=== PATIENT | male | born 1985 | race Caucasian/White ===

== ENCOUNTER 2017-12-18 09:16 | Emergency (ER) | payer SELFPAY ==
[2017-12-18 10:19] LABS: Absolute Lymphocytes (CBC) 3.2 K/uL (0.7-4.9); Absolute Monocytes 0.8 K/uL (0.1-1.3); Absolute Neutrophil 6.4 K/uL (1.8-8.0); Basophils % 0.5 % (0-1.3); Eosinophils % 1.8 % (0-4.4); Hematocrit 41.7 % (39.6-49.0); Lymphocytes % 29.8 % (15.3-44.8); MCH 30.1 pg (27.0-35.0); MCV 88.3 fL (80-100); MPV 8.1 fL (7.6-11.3); Monocytes % 7.6 % (3.3-12.3); RBC Red Blood Cell Count 4.72 M/uL (4.33-5.43)
[2017-12-18] MEDS ORDERED: NA CHLORIDE 0.9% 1,000 ML ONE (10:20)
[2017-12-18 10:32] LABS: Protime INR 0.96
--- NOTE | 2017-12-18 10:44 | RAD REPORT ---
EXAM DESCRIPTION: RAD - Chest Single View - 12/18/2017 10:18 am CLINICAL HISTORY: Dizziness, weakness, shortness of breath COMPARISON: None. TECHNIQUE: AP portable chest image was obtained 1014 hours . FINDINGS: No peripheral mass or consolidation. Interstitial markings are not outside of normal limit s for portable technique and body habitus. Heart and vasculature are normal. No measurable pleural ef fusion and no pneumothorax. No gross bony abnormality seen. No acute aortic findings suspected. IMPRESSION: No acute cardiopulmonary process.
--- NOTE | 2017-12-18 10:46 | RAD REPORT ---
EXAM DESCRIPTION: CT - Head Brain Wo Cont - 12/18/2017 10:20 am CLINICAL HISTORY: Headache, dizziness, weakness COMPARISON: None. TECHNIQUE: Axial 5 mm thick images of the head were obtained without IV contrast. All CT scans are performed using dose optimization technique as appropriate and may include automated exposure control or mA/KV adjustment according to patient size. FINDINGS: No intracranial hemorrhage, mass, edema or shift of mid-line structures. No acute infarcti on changes seen. No abnormal extra-axial fluid collections. Ventricles are normal. There is a benign 12 millimeter calcification in the right lateral scalp. Mastoid air cells are clear. There is a large polyp or retention cyst in the right maxillary sinus. Patchy mucosal thickening seen in the ethmoid air cells. No globe or orbital content abnormality. No acute bony findings. IMPRESSION: No edema, hemorrhage or acute intracranial finding. Nonacute findings detailed in the dora dy of the report.
[2017-12-18 10:55] LABS: Bicarbonate 25 mEq/L (21-31); CKMB Creatine Kinase MB 6.9 ng/ml (0.3-4.0); Glucose Level 98 mg/dL (65-120); Potassium 4.1 mEq/L (3.6-5.0); Sodium Level 138 mEq/L (135-145)
[2017-12-18 11:01] LABS: ALT/SGPT 37 IU/L (10-60); AST/SGOT 26 IU/L (10-42); Albumin 4.2 g/dL (3.2-5.5); Alkaline Phosphatase 78 IU/L (42-121); BUN Blood Urea Nitrogen 14 mg/dL (6-20); Bilirubin Direct 0.1 mg/dL (0-0.2); Bilirubin Total 0.5 mg/dL (0.3-1.2); Creatine Phosphokinase 389 IU/L (22-269); Protein, Total 7.1 g/dL (6.0-8.3)
[2017-12-18 11:10] LABS: Urine Blood NEGATIVE (NEG); Urine Glucose NEGATIVE (NEG); Urine Protein NEGATIVE (NEG); Urine Specific Gravity 1.025 (1.005-1.030)
[2017-12-18 11:19] LABS: Barbiturates NEGATIVE; Benzodiazepines NEGATIVE; Cocaine NEGATIVE; METHAMPHETAM NEGATIVE; Opiates NEGATIVE; Phencyclidine NEGATIVE; THC Cannibis NEGATIVE
--- NOTE | 2017-12-18 11:32 | EDPHYS ---
Physician Documentation [facility] Name: Kenny Fallon Age: 32 yrs Sex: Male : 1985 Arrival Date: 12/18/2017 Time: 09:18 Bed 2 Private MD: ED Physician Joe mC HPI: 12/18 09:30 This 32 yrs old Male presents to ER via EMS with complaints of Blood Pressure cp Problem. 09:30 The patient has elevated blood pressure and discovered this at work. cp 09:30 Onset: The symptoms/episode began/occurred this morning. Associated signs and symptoms: cp Pertinent positives: dizziness, headache, Pertinent negatives: chest pain, vomiting, weakness. Severity of symptoms: in the emergency department the blood pressure is improved, 148 mm Hg. patient reports history of HTN but stopping medications w/o follow-up with primary physician. Historical: - Allergies: 09:26 No Known Allergies; hb - Home Meds: 09:26 atorvastatin oral oral [Active]; hb - PMHx: 09:26 Hypertension; Hyperlipidemia; hb - PSHx: 09:26 Cholecystectomy; Tonsillectomy; hb - Immunization history:: Adult Immunizations up to date. - Social history:: Smoking status: Patient uses tobacco products, smokes one pack cigarettes per day. ROS: 09:34 Constitutional: Negative for body aches, chills, fever, poor PO intake. cp 09:34 Eyes: Negative for injury, pain, redness, and discharge. cp 09:34 ENT: Negative for drainage from ear(s), ear pain, sore throat, difficulty swallowing, difficulty handling secretions. 09:34 Neck: Negative for pain with movement, pain at rest, stiffness, tenderness. 09:34 Cardiovascular: Negative for chest pain, edema, palpitations. 09:34 Respiratory: Negative for cough, shortness of breath, wheezing. 09:34 Abdomen/GI: Negative for abdominal pain, nausea, vomiting, and diarrhea, black/tarry stool, rectal bleeding. 09:34 Skin: Negative for cellulitis, rash. 09:34 Neuro: Positive for dizziness, headache, Negative for altered mental status, seizure activity, syncope, near syncope, weakness. 09:34 All other systems are negative. Exam: 09:35 ECG was reviewed by the Attending Physician. cp 09:40 Constitutional: The patient appears in no acute distress, alert, awake, cp non-diaphoretic, non-toxic, well developed, well nourished, obese. 09:40 Head/Face: Normocephalic, atraumatic. Eyes: Pupils equal round and reactive to light, cp extra-ocular motions intact. Lids and lashes normal. Conjunctiva and sclera are non-icteric and not injected. Cornea within normal limits. Periorbital areas with no swelling, redness, or edema. ENT: Nares patent. No nasal discharge, no septal abnormalities noted. Tympanic membranes are normal and external auditory canals are clear. Oropharynx with no redness, swelling, or masses, exudates, or evidence of obstruction, uvula midline. Mucous membranes moist. Neck: Trachea midline, no thyromegaly or masses palpated, and no cervical lymphadenopathy. Supple, full range of motion without nuchal rigidity, or vertebral point tenderness. No Meningismus. Chest/axilla: Normal chest wall appearance and motion. Nontender with no deformity. No lesions are appreciated. 09:40 Cardiovascular: Rate: normal, Rhythm: regular, Pulses: Pulses are 2+ in right radial artery and left radial artery. Heart sounds: murmur, not appreciated, Edema: is not appreciated, JVD: is not appreciated. 09:40 Respiratory: the patient does not display signs of respiratory distress, Respirations: normal, no use of accessory muscles, no retractions, no splinting, no tachypnea, labored breathing, is not present, Breath sounds: are clear throughout, no decreased breath sounds, no stridor, no wheezing. 09:40 Abdomen/GI: Inspection: obese Bowel sounds: active, all quadrants, Palpation: abdomen is soft and non-tender, in all quadrants, voluntary guarding, is not appreciated, involuntary guarding, is not appreciated. 09:40 Back: pain, is absent, ROM is normal. 09:40 Skin: cellulitis, is not appreciated, no rash present. 09:40 Neuro: Orientation: to person, place \T\ time. Mentation: is normal, Cerebellar function: is grossly normal, Motor: moves all fours, strength is normal, Sensation: is normal. Vital Signs: 09:21 BP 148 / 73; Pulse 95; Resp 18; Temp 98.2; Pulse Ox 97% on R/A; Pain 0/10; hb 09:30 BP 114 / 48 Supine; Pulse 92; hb 09:35 BP 126 / 68 Sitting; Pulse 98; hb 09:43 BP 137 / 75 Standing; Pulse 102; hb 10:10 BP 101 / 70; Pulse 97; Resp 18; Pulse Ox 97% on R/A; hb 11:29 BP 122 / 72; Pulse 88; Resp 17; Pulse Ox 100% on R/A; Pain 0/10; hb MDM: 09:21 Patient medically screened. cp 10:00 Differential diagnosis: hypertensive crisis, Malignant HTN, CVA, intracerebral cp hemorrhage. 11:25 Data reviewed: vital signs, nurses notes, lab test result(s), EKG, radiologic studies, cp CT scan, plain films. 11:25 Counseling: I had a detailed discussion with the patient and/or guardian regarding: the cp historical points, exam findings, and any diagnostic results supporting the discharge/admit diagnosis, the presence of at least one elevated blood pressure reading (>120/80) during this emergency department visit, lab results, radiology results, the need for outpatient follow up, a family practitioner, to return to the emergency department if symptoms worsen or persist or if there are any questions or concerns that arise at home. 11:25 Response to treatment: the patient's symptoms have markedly improved after treatment, cp and as a result, I will discharge patient. 12/18 09:54 Order name: Basic Metabolic Panel; Complete Time: 11:21 cp 12/18 11:22 Interpretation: Reviewed. cp 12/18 09:54 Order name: BNP; Complete Time: 11:21 cp 12/18 09:54 Order name: CBC with Diff; Complete Time: 11:00 cp 12/18 11:00 Interpretation: Reviewed. cp 12/18 09:54 Order name: Ckmb; Complete Time: 11:21 cp 12/18 11:21 Interpretation: CKMB 6.9; Reviewed. cp 12/18 09:54 Order name: CPK; Complete Time: 11:21 cp 12/18 11:22 Interpretation: CPK 389; Reviewed. cp 12/18 09:54 Order name: LFT's; Complete Time: 11:21 cp 12/18 09:54 Order name: Magnesium; Complete Time: 11:21 cp 12/18 09:54 Order name: PT-INR; Complete Time: 11:00 cp 12/18 09:54 Order name: Ptt, Activated; Complete Time: 11:00 cp 12/18 09:54 Order name: Troponin (emerg Dept Use Only); Complete Time: 11:00 cp / 09:54 Order name: XRAY Chest (1 view); Complete Time: 11:00 cp 12/18 09:54 Order name: CT Head Brain wo Cont; Complete Time: 11:00 cp 12/18 09:54 Order name: UDS; Complete Time: 11:21 cp 12/18 10:58 Order name: Urine Dipstick--Ancillary (enter results); Complete Time: 11:21 bd 12/18 09:27 Order name: Orthostatics; Complete Time: 09:46 cp 12/18 09:27 Order name: EKG; Complete Time: 09:27 cp 12/18 09:27 Order name: EKG - Nurse/Tech; Complete Time: 09:39 cp 12/18 09:54 Order name: Cardiac monitoring; Complete Time: 09:59 cp 12/18 09:54 Order name: IV Saline Lock; Complete Time: 09:59 cp 12/18 09:54 Order name: Labs collected and sent; Complete Time: 10:10 cp 12/18 09:54 Order name: O2 Per Protocol; Complete Time: 09:59 cp 12/18 09:54 Order name: O2 Sat Monitoring; Complete Time: 09:59 cp EC:35 Rate is 88 beats/min. Rhythm is regular. WA interval is normal. QRS interval is normal. cp QT interval is normal. No ST changes noted. Interpreted by me. Reviewed by me. Administered Medications: 10:10 Drug: NS 0.9% 1000 ml Route: IV; Rate: 1 bolus; Site: left antecubital; hb Disposition: 13:24 Co-signature as Attending Physician, Joe Cm MD. Disposition: 12/18/17 11:31 Discharged to Home. Impression: Elevated blood-pressure reading, without diagnosis of hypertension. - Condition is Stable. - Discharge Instructions: How to Take Your Blood Pressure, [id number], DASH Eating Plan. - Work release form, Medication Reconciliation Form, Thank You Letter, Antibiotic Education, Prescription Opioid Use form. - Follow up: Private Physician; When: 1 - 2 days; Reason: Recheck today's complaints. - Problem is new. - Symptoms have improved. Signatures: Dispatcher [employer] Janna Ordoñez RN RN ss Papa Linares PA PA cp Baxter, Heather, RN RN hb Starr, Gregory, MD MD gs Corrections: (The following items were deleted from the chart) 11:50 09:54 Urine Dipstick-Ancillary ordered. terrance
--- NOTE | 2017-12-18 11:32 | ER ---
Nurse's Notes [facility] Name: Kenny Fallon Age: 32 yrs Sex: Male : 1985 Arrival Date: 12/18/2017 Time: 09:18 Bed 2 Private MD: Diagnosis: Elevated blood-pressure reading, without diagnosis of hypertension Presentation: 12/18 09:19 Presenting complaint: EMS states: Jay Em lightheaded at work, went to medic, BP 198/48. hb Hx hypertension, has not taken medication for > 2 months. Denies SOB/N/pain. Transition of care: patient was not received from another setting of care. Onset of symptoms was December 18, 2017. Care prior to arrival: None. 09:19 Method Of Arrival: EMS: [facility] 09:19 Acuity: TRINI 3 hb Triage Assessment: :26 General: Appears in no apparent distress. Behavior is calm, cooperative. Pain: Denies hb pain. Neuro: Level of Consciousness is awake, alert, obeys commands, Oriented to person, place, time, situation, Pupils are PERRLA. Cardiovascular: Capillary refill < 3 seconds Patient's skin is warm and dry. Respiratory: Airway is patent Respiratory effort is even, unlabored, Respiratory pattern is regular, symmetrical, Breath sounds are clear bilaterally. Historical: - Allergies: : No Known Allergies; hb - Home Meds: : atorvastatin oral oral [Active]; hb - PMHx: 09:26 Hypertension; Hyperlipidemia; hb - PSHx: 09:26 Cholecystectomy; Tonsillectomy; hb - Immunization history:: Adult Immunizations up to date. - Social history:: Smoking status: Patient uses tobacco products, smokes one pack cigarettes per day. Screenin: Abuse screen: Denies threats or abuse. Denies injuries from another. Nutritional hb screening: No deficits noted. Tuberculosis screening: No symptoms or risk factors identified. Fall Risk None identified. Assessment: :27 General: see triage assessment. hb 10:25 Reassessment: Patient appears in no apparent distress at this time. No changes from hb previously documented assessment. Patient and/or family updated on plan of care and expected duration. Pain level reassessed. Patient is alert, oriented x 3, equal unlabored respirations, skin warm/dry/pink. Vital Signs: 09:21 BP 148 / 73; Pulse 95; Resp 18; Temp 98.2; Pulse Ox 97% on R/A; Pain 0/10; hb 09:30 BP 114 / 48 Supine; Pulse 92; hb 09:35 BP 126 / 68 Sitting; Pulse 98; hb 09:43 BP 137 / 75 Standing; Pulse 102; hb 10:10 BP 101 / 70; Pulse 97; Resp 18; Pulse Ox 97% on R/A; hb 11:29 BP 122 / 72; Pulse 88; Resp 17; Pulse Ox 100% on R/A; Pain 0/10; hb ED Course: 09:18 Patient arrived in ED. hb 09:21 Papa Linares PA is PHCP. cp 09:21 Joe Cm MD is Attending Physician. cp 09:21 Triage completed. hb 09:26 Arm band placed on right wrist. hb 09:27 Elisa Max, RN is Primary Nurse. hb 09:27 Patient has correct armband on for positive identification. Placed in gown. Bed in low hb position. Call light in reach. Side rails up X 1. playground monitor on. Pulse ox on. NIBP on. 09:47 EKG done, by drinking water technician. reviewed by Papa HOLGUIN. at1 10:18 X-ray completed. Portable x-ray completed in exam room. jb2 10:19 XRAY Chest (1 view) In Process Unspecified. EDMS 10:19 CT Head Brain wo Cont In Process Unspecified. EDMS 10:19 CT completed. Patient tolerated procedure well. Patient moved to CT via stretcher. sj Patient moved back from CT. 10:22 Inserted saline lock: 20 gauge in left antecubital area, using aseptic technique. Blood ag collected. 11:50 No provider procedures requiring assistance completed. IV discontinued, intact, ss bleeding controlled, No redness/swelling at site. Pressure dressing applied. Administered Medications: 10:10 Drug: NS 0.9% 1000 ml Route: IV; Rate: 1 bolus; Site: left antecubital; hb Outcome: 11:31 Discharge ordered by MD. cp 11:50 Discharged to home ambulatory, with family. ss 11:50 Condition: good 11:50 Discharge instructions given to patient, family, Instructed on discharge instructions, follow up and referral plans. Demonstrated understanding of instructions, follow-up care. 11:50 Patient left the ED. ss Signatures: Dispatcher [employer] EDMS Efren Galicia jb2 Anna Leone Shelby, IAN RN ss Eryn pearl, biochemical development engineer EKG Tat1 Dolores Faith Corey, PA PA cp Baxter, Heather, IAN RN hb Corrections: (The following items were deleted from the chart) 09:22 09:19 Presenting complaint: EMS states: Jay Em lightheaded at work, went to [facility], BP hb 198/48. Hx hypertension, has not taken medication for > 2 months hb
--- NOTE | 2017-12-19 07:39 | EKG ---
Test Date: 2017-12-18 Test Time: 09:30:01 Civil Technician: ADOLFO MEASUREMENT RESULTS: Intervals: Rate: 88 MA: 168 QRSD: 80 QT: 350 QTc: 423 [place]: P: 47 MA: 168 QRS: 10 T: 56 INTERPRETIVE STATEMENTS: Normal sinus rhythm Normal ECG No previous ECG available for comparison Electronically Signed On 12-19-17 07:35:12 CDT by Judd Bustillos
== END 2017-12-18 11:50 | disposition home or self-care (01) ==
LOC: ER 09:16
DX: R03.0 Elevated blood-pressure reading, without diagnosis of hypertension (principal); E78.5 Hyperlipidemia, unspecified; F17.210 Nicotine dependence, cigarettes, uncomplicated
CPT/HCPCS: 36415; 70450; 71045; 80048; 80076; 80307; 81003; 82550; 82553; 83735; 83880; 84484; 85025; 85610; 85730; 93005; 99285; J7030

== ENCOUNTER 2022-04-14 19:36 | Emergency (ER) | payer SELFPAY ==
--- NOTE | 2022-04-14 21:09 | RAD REPORT ---
EXAM DESCRIPTION: US - Extremity Nonvascular Limited - 04/14/2022 9:01 pm CLINICAL HISTORY: evaluate mass near scapula COMPARISON: No comparisons TECHNIQUE: Real-time sonographic evaluation of the area of interest was performed. FINDINGS: Nonspecific 2 cm hyperechoic lesion is present in the region of interest. This could poten tially be a lipoma but definitive diagnosis not possible by ultrasound.
--- NOTE | 2022-04-14 21:29 | RAD REPORT ---
EXAM DESCRIPTION: CT - Spine Lumbar Wo Con - 04/14/2022 9:16 pm CLINICAL HISTORY: Radiculopathy. Back pain COMPARISON: No comparisons TECHNIQUE: Axial noncontrast CT imaging of the lumbar spine was performed with coronal and sagittal re-formatted images. All CT scans are performed using dose optimization technique as appropriate and may include automated exposure control or mA/KV adjustment according to patient size. FINDINGS: No acute lumbar spine fracture seen. No aggressive marrow pattern or malalignment. Paraspinal tissues are normal in thickness. No paraspinal abscess or hematoma seen. Intervertebral disc disease assessment is inherently limited by CT. Mild posterior disc bulges are pr esent lower lumbar spine. IMPRESSION: No acute finding is evident. Mild lower lumbar spondylosis is present. Nonemergent followup MR imaging of lumbar spine would be suggested for assessment of disc disease.
[2022-04-14] MEDS ORDERED: FENTANYL CITR 100 MCG/2 ML ONE (21:48)
[2022-04-14] MEDS ORDERED: KETOROLAC 30 MG/ML INJ ONE (21:48)
[2022-04-14] MEDS ORDERED: LIDOCAINE 4% PATCH ONE (21:49)
[2022-04-14] MEDS ORDERED: ONDANSETRON 4 MG/2 ML VIAL ONE (21:49)
[2022-04-14] MEDS ORDERED: NA CHLORIDE 0.9% 1,000 ML ONE (21:49)
--- NOTE | 2022-04-14 23:10 | ER ---
Nurse's Notes [facility] Name: Kenny Fallon Age: 36 yrs Sex: Male : 1985 Arrival Date: 04/14/2022 Time: 19:38 Bed 14 Private MD: Diagnosis: Low back pain Presentation: 04/14 20:12 Chief complaint: Patient states: "I feel like there is a hot poker stabbing in my back. tw5 It fucking hurts so bad.". Coronavirus screen: Vaccine status: Patient reports being unvaccinated. Ebola Screen: Patient negative for fever greater than or equal to 101.5 degrees Fahrenheit, and additional compatible Ebola Virus Disease symptoms Patient denies exposure to infectious person. Patient denies travel to an Ebola-affected area in the 21 days before illness onset. Initial Sepsis Screen: Does the patient meet any 2 criteria? HR > 90 bpm. Does the patient have a suspected source of infection? No. Patient's initial sepsis screen is negative. Risk Assessment: Do you want to hurt yourself or someone else? Patient reports no desire to harm self or others. Onset of symptoms was April 14, 2022 at 12:00. 20:12 Method Of Arrival: Wheelchair tw5 20:12 Acuity: TRINI 3 tw5 Triage Assessment: 20:16 General: Appears uncomfortable, obese, Behavior is agitated. Pain: Complains of pain in tw5 right subscapular area and low back area Pain currently is 10 out of 10 on a pain scale. Musculoskeletal: Range of motion: intact in all extremities. Historical: - Allergies: 20:16 No Known Allergies; tw5 - Home Meds: 21:00 atorvastatin Oral [Active]; vc1 - PMHx: 20:16 Hyperlipidemia; Hypertension; tw5 - Immunization history:: Flu vaccine is not up to date. Patient has never been vaccinated. - Social history:: Smoking status: Smoking status: Patient reports the use of cigarette tobacco products, smokes one pack cigarettes per day. Screenin:18 Abuse screen: Denies threats or abuse. Denies injuries from another. Nutritional tw5 screening: No deficits noted. Tuberculosis screening: No symptoms or risk factors identified. Fall Risk Fall in past 12 months (25 points). Assessment: 21:00 Reassessment: Patient and/or family updated on plan of care and expected duration. Pain vc1 level reassessed. Patient is alert, oriented x 3, equal unlabored respirations, skin warm/dry/pink. 22:00 Reassessment: Patient and/or family updated on plan of care and expected duration. Pain vc1 level reassessed. Patient is alert, oriented x 3, equal unlabored respirations, skin warm/dry/pink. 23:15 Reassessment: Patient and/or family updated on plan of care and expected duration. Pain vc1 level reassessed. Patient is alert, oriented x 3, equal unlabored respirations, skin warm/dry/pink. Patient states symptoms have improved. Vital Signs: 20:12 BP 142 / 85; Pulse 109; Resp 24; Temp 98.4; Pulse Ox 94% on R/A; Weight 186.88 kg; tw5 Height 6 ft. 0 in. (182.88 cm); Pain 10/10; 21:40 BP 148 / 76; Pulse 105; Resp 20; Temp 98.0(O); Pulse Ox 95% on R/A; mh5 22:55 BP 148 / 67; Pulse 84; Resp 20; Pulse Ox 95% on R/A; mh5 23:30 BP 145 / 68; Pulse 88; Resp 18; Pulse Ox 96% ; vc1 20:12 Body Mass Index 55.88 (186.88 kg, 182.88 cm) tw5 ED Course: 19:38 Patient arrived in ED. ja2 19:39 Nita Rocha [facility]-C [facility]. kb 19:39 Bhavin Adair MD is Attending Physician. kb 20:16 Triage completed. tw5 20:16 Arm band placed on right wrist. tw5 20:18 Patient has correct armband on for positive identification. tw5 20:39 Missed attempt(s): 20 gauge in right antecubital area. mh5 21:03 US Extrmty Nonvasular Limited In Process Unspecified. EDMS 21:15 Inserted saline lock: 22 gauge in right antecubital area, using aseptic technique. vc1 21:18 CT Lumbar Spine Wo Con In Process Unspecified. EDMS 23:30 No provider procedures requiring assistance completed. IV discontinued, intact, vc1 bleeding controlled, No redness/swelling at site. Pressure dressing applied. Administered Medications: 21:00 Drug: fentaNYL (PF) 50 mcg Route: IVP; Site: right antecubital; vc1 22:00 Follow up: Response: No adverse reaction; Marked relief of symptoms vc1 21:00 Drug: Zofran (Ondansetron) 4 mg Route: IVP; Site: right antecubital; vc1 22:00 Follow up: Response: No adverse reaction; Nausea is decreased vc1 22:00 Drug: NS 0.9% 1000 ml Route: IV; Rate: 1000 ml; Site: right antecubital; vc1 04/15 05:04 Follow up: IV Status: Completed infusion; IV Intake: 1000ml vc1 04/14 22:00 Drug: Lidoderm Patch 5 % (700 mg/patch) 1 patches Route: Topical; Site: affected area; vc1 22:10 Drug: Ketorolac 30 mg Route: IVP; Site: right antecubital; vc1 04/15 05:04 Follow up: Response: No adverse reaction; Marked relief of symptoms vc1 Medication: 04/14 23:30 VIS not applicable for this client. vc1 Intake: 04/15 05:04 IV: 1000ml; Total: 1000ml. vc1 Outcome: 04/14 23:09 Discharge ordered by . lesli 23:30 Discharged to home via wheelchair. vc1 23:30 Condition: good 23:30 Discharge instructions given to patient, Instructed on discharge instructions, follow up and referral plans. medication usage, Demonstrated understanding of instructions, follow-up care, medications, Prescriptions given X 2. 23:44 Patient left the ED. vc1 Signatures: Dispatcher [employer] EDNita Johnson, AYESHA-C INDUSTRIAL TWISTING MACHINE OPERATOR-[place] 5 Katiuska Kulkarni Tiffany tw5 Hallie Cedeño RN RN vc1 Corrections: (The following items were deleted from the chart) 20:16 20:12 Acuity: TRINI 4 tw5 tw5
--- NOTE | 2022-04-14 23:10 | EDPHYS ---
Physician Documentation [facility] [place] Name: Kenny Fallon Age: 36 yrs Sex: Male : 1985 Arrival Date: 04/14/2022 Time: 19:38 Bed 14 Private MD: ED Physician Bhavin Adair HPI: 04/14 23:29 This 36 yrs old Male presents to ER via Wheelchair with complaints of Back Pain. kb 23:29 The patient presents with pain that is chronic. The symptoms are located in the low kb back. Onset: The symptoms/episode began/occurred and became worse today. The pain does not radiate. Associated signs and symptoms: The patient has no apparent associated signs or symptoms. The problem was sustained from a chronic condition. Modifying factors: The patient symptoms are alleviated by nothing, the patient symptoms are aggravated by any movement. Severity of symptoms: At their worst the symptoms were moderate, in the emergency department the symptoms are unchanged. The patient has experienced similar episodes in the past, chronically. The patient has not recently seen a physician. Patient reports chronic low back pain that started years ago with intermittent exacerbations. States this pain exacerbation started yesterday and has been worse today.. Historical: - Allergies: 20:16 No Known Allergies; tw5 - Home Meds: 21:00 atorvastatin Oral [Active]; vc1 - PMHx: 20:16 Hyperlipidemia; Hypertension; tw5 - Immunization history:: Flu vaccine is not up to date. Patient has never been vaccinated. - Social history:: Smoking status: Smoking status: Patient reports the use of cigarette tobacco products, smokes one pack cigarettes per day. ROS: 23:29 Constitutional: Negative for fever, chills, and weight loss. kb 23:29 Back: Positive for pain at rest, pain with movement, of the low back area. 23:29 All other systems are negative. Exam: 23:29 Constitutional: This is a well developed, well nourished patient who is awake, alert, kb and in no acute distress. Head/Face: Normocephalic, atraumatic. ENT: Moist Mucous membranes Respiratory: Respirations even and unlabored. No increased work of breathing. Talking in full sentences Skin: Warm, dry with normal turgor. Normal color. MS/ Extremity: Pulses equal, no cyanosis. Neurovascular intact. Full, normal range of motion. Neuro: Awake and alert, GCS 15, oriented to person, place, time, and situation. Moves all extremities. Normal gait. Psych: Awake, alert, with orientation to person, place and time. Behavior, mood, and affect are within normal limits. 23:29 Back: pain, that is moderate, of the low back area, ROM is painful, with all movement, normal spinal alignment noted. Vital Signs: 20:12 BP 142 / 85; Pulse 109; Resp 24; Temp 98.4; Pulse Ox 94% on R/A; Weight 186.88 kg; tw5 Height 6 ft. 0 in. (182.88 cm); Pain 10/10; 21:40 BP 148 / 76; Pulse 105; Resp 20; Temp 98.0(O); Pulse Ox 95% on R/A; mh5 22:55 BP 148 / 67; Pulse 84; Resp 20; Pulse Ox 95% on R/A; mh5 23:30 BP 145 / 68; Pulse 88; Resp 18; Pulse Ox 96% ; vc1 20:12 Body Mass Index 55.88 (186.88 kg, 182.88 cm) tw5 MDM: 20:29 Patient medically screened. kb 21:40 Data reviewed: vital signs, nurses notes. Data interpreted: Pulse oximetry: on room air kb is 94 %. Interpretation: normal. Counseling: I had a detailed discussion with the patient and/or guardian regarding: the historical points, exam findings, and any diagnostic results supporting the discharge/admit diagnosis, radiology results, the need for outpatient follow up, a family practitioner, to return to the emergency department if symptoms worsen or persist or if there are any questions or concerns that arise at home. 23:28 ED course: Pain has decreased. Pt educated on results and need for follow up due to kb chronic pain. Verbal understanding received. . 04/14 20:20 Order name: CT Lumbar Spine Wo Con; Complete Time: 21:36 tw5 04/14 20:20 Order name: US Extrmty Nonvasular Limited; Complete Time: 21:16 tw5 04/14 20:20 Order name: IV Saline Lock; Complete Time: 05:06 tw5 Administered Medications: 21:00 Drug: fentaNYL (PF) 50 mcg Route: IVP; Site: right antecubital; vc1 22:00 Follow up: Response: No adverse reaction; Marked relief of symptoms vc1 21:00 Drug: Zofran (Ondansetron) 4 mg Route: IVP; Site: right antecubital; vc1 22:00 Follow up: Response: No adverse reaction; Nausea is decreased vc1 22:00 Drug: NS 0.9% 1000 ml Route: IV; Rate: 1000 ml; Site: right antecubital; vc1 04/15 05:04 Follow up: IV Status: Completed infusion; IV Intake: 1000ml vc1 04/14 22:00 Drug: Lidoderm Patch 5 % (700 mg/patch) 1 patches Route: Topical; Site: affected area; vc1 22:10 Drug: Ketorolac 30 mg Route: IVP; Site: right antecubital; vc1 04/15 05:04 Follow up: Response: No adverse reaction; Marked relief of symptoms vc1 Disposition: 05:57 Co-signature as Attending Physician, Bhavin Adair MD. mh7 Disposition Summary: 04/14/22 23:09 Discharge Ordered Location: Home kb Condition: Stable kb Diagnosis - Low back pain kb Followup: kb - With: Emergency Department - When: As needed - Reason: Worsening of condition Followup: kb - With: Private Physician - When: 2 - 3 days - Reason: Recheck today's complaints, Continuance of care, Re-evaluation by your physician Discharge Instructions: - Discharge Summary Sheet kb - Musculoskeletal Pain kb - Chronic Back Pain, Gdxq-ms-Cuby kb Forms: - Medication Reconciliation Form kb - Thank You Letter kb - Antibiotic Education kb - Prescription Opioid Use kb Prescriptions: - Cyclobenzaprine 10 mg Oral Tablet - take 1 tablet by ORAL route every 8 hours As needed; 15 tablet; Refills: 0, kb Product Selection Permitted - Diclofenac Sodium 75 mg Oral tablet,delayed release (DR/EC) - take 1 tablet by ORAL route 2 times per day As needed; 30 tablet; Refills: 0, kb Product Selection Permitted Signatures: Dispatcher [employer] Nita Iniguez, NELIA HODGE-Bhavin Barrera MD MD 7 Shila Whitehead 5 Hallie Cedeño RN RN vc1
[2022-04-15 02:01] VITALS: TEMP 98; O2SAT 95
[2022-04-15 02:03] VITALS: BP 148/67
== END 2022-04-14 23:44 | disposition home or self-care (01) ==
LOC: ER 19:36
DX: M54.50 Low back pain, unspecified (principal); I10 Essential (primary) hypertension; F17.210 Nicotine dependence, cigarettes, uncomplicated
CPT/HCPCS: 72131; 76882; 96361; 96374; 96375; 99284; J2001; J2405; J3010; J7030

== ENCOUNTER 2022-05-22 10:07 | Emergency (ER) | payer SELFPAY ==
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
[2022-05-22] MEDS ORDERED: CYCLOBENZAPRINE 10 MG TAB ONE (10:41)
[2022-05-22] MEDS ORDERED: HYDROCODONE/APAP 7.5/325 MG TAB ONE (10:42)
[2022-05-22] MEDS ORDERED: KETOROLAC 30 MG/ML INJ ONE (10:42)
--- NOTE | 2022-05-22 10:58 | ER ---
Nurse's Notes [facility] Name: Kenny Fallon Age: 36 yrs Sex: Male : 1985 Arrival Date: 05/22/2022 Time: 10:10 Bed 11 Private MD: Diagnosis: Sciatica;Sacral Pain Presentation: 05/22 10:16 Chief complaint: Patient states: Lower back pain (chronic). Has been prescribed pain kl meds in the past but either they havent worked or he cant function taking them. Coronavirus screen: Client denies travel out of the [place] in the last 14 days. At this time, the client does not indicate any symptoms associated with coronavirus-19. Ebola Screen: No symptoms or risks identified at this time. Initial Sepsis Screen: Does the patient meet any 2 criteria? No. Patient's initial sepsis screen is negative. Does the patient have a suspected source of infection? No. Patient's initial sepsis screen is negative. Risk Assessment: Do you want to hurt yourself or someone else? Patient reports no desire to harm self or others. Onset of symptoms was May 18, 2022. 10:16 Method Of Arrival: Wheelchair 10:16 Acuity: TRINI 3 kl 10:21 Note ONSHORE DIVER in triage to see patient. kl Triage Assessment: 10:20 General: Appears uncomfortable, obese, Behavior is calm, cooperative, appropriate for kl age. Pain: Complains of pain in left low back and right low back. Musculoskeletal: lower back pain. Historical: - Allergies: 11:14 No Known Allergies; jl7 - Home Meds: 10:20 atorvastatin Oral [Active]; kl - PMHx: 10:20 Hyperlipidemia; Hypertension; kl - Immunization history:: Client reports having NOT received the Covid vaccine. - Social history:: Smoking status: Patient reports the use of cigarette tobacco products, smokes one pack cigarettes per day. Screenin:53 Abuse screen: Denies threats or abuse. Nutritional screening: No deficits noted. bm7 Tuberculosis screening: No symptoms or risk factors identified. Fall Risk None identified. Assessment: 10:53 Reassessment: Patient and/or family updated on plan of care and expected duration. Pain bm7 level reassessed. Patient is alert, oriented x 3, equal unlabored respirations, skin warm/dry/pink. Vital Signs: 10:16 BP 149 / 89; Pulse 106; Resp 22; Temp 98.1; Pulse Ox 94% ; Weight 181.44 kg; Height 6 kl ft. 0 in. (182.88 cm); Pain 8/10; 11:14 BP 134 / 74; Pulse 99; Resp 20; Pulse Ox 90% ; jl7 10:16 Body Mass Index 54.25 (181.44 kg, 182.88 cm) ED Course: 10:10 Patient arrived in ED. rg4 10:11 Tana Hammonds FNP is PHCP. 7 10:11 Nathan Mcmahon MD is Attending Physician. 7 10:20 Triage completed. 10:20 Arm band placed on right wrist. Patient placed in an exam room, Patient notified of wait time. 10:53 No apparent distress. Resting quietly. Awaiting ED provider evaluation. bm7 10:53 Patient has correct armband on for positive identification. Client placed on continuous bm7 cardiac and pulse oximetry monitoring. NIBP monitoring applied. Warm blanket given. 10:53 No provider procedures requiring assistance completed. Patient maintains SpO2 bm7 saturation greater than 95% on room air. 11:14 Griffin Downing, RN is Primary Nurse. jl7 11:15 Patient did not have IV access during this emergency room visit. jl7 Administered Medications: 10:35 Drug: Ketorolac 60 mg Route: IM; Site: left gluteus; bm7 11:16 Follow up: Response: No adverse reaction jl7 10:35 Drug: Flexeril (cyclobenzaprine) 10 mg Route: PO; bm7 11:16 Follow up: Response: No adverse reaction jl7 10:35 Drug: Gilbert (HYDROcodone-acetaminophen) (7.5 mg-325 mg) 1 tabs Route: PO; bm7 11:15 Follow up: Response: No adverse reaction jl7 Medication: 10:53 VIS not applicable for this client. bm7 Outcome: 10:58 Discharge ordered by . jh7 11:15 Discharged to home via wheelchair. jl7 11:15 Condition: stable 11:15 Discharge instructions given to patient, Instructed on discharge instructions, follow up and referral plans. medication usage, Demonstrated understanding of instructions, follow-up care, medications, Prescriptions given X 3. 11:16 Patient left the ED. jl7 Signatures: Catina Vick, RN RN Lenora Davalos4 Griffin Downing RN RN jl7 Dipti Hall, RN RN bm7 Tana Hammonds, AYESHA HODGE 7
--- NOTE | 2022-05-22 10:58 | EDPHYS ---
Physician Documentation [facility] Name: Kenny Fallon Age: 36 yrs Sex: Male : 1985 Arrival Date: 05/22/2022 Time: 10:10 Bed 11 Private MD: ED Physician Nathan Mcmahon HPI: 05/22 10:22 This 36 yrs old Male presents to ER via Wheelchair with complaints of Back Pain. jh7 10:22 The patient presents with pain that is chronic, with no known mechanism of injury. The jh7 symptoms are located in the sacrum. Onset: The symptoms/episode began/occurred and became worse 3 day(s) ago. The pain radiates to the right leg and left leg. Patient reports chronic back pain from an injury occurring years ago. States that he does not have a PCP and is trying to get an appointment with a primary care doctor. States that he has to wait until his insurance kicks in. Denies any changes or new injuries.. Historical: - Allergies: 11:14 No Known Allergies; jl7 - Home Meds: 10:20 atorvastatin Oral [Active]; kl - PMHx: 10:20 Hyperlipidemia; Hypertension; kl - Immunization history:: Client reports having NOT received the Covid vaccine. - Social history:: Smoking status: Patient reports the use of cigarette tobacco products, smokes one pack cigarettes per day. ROS: 10:22 Constitutional: Negative for fever, chills, and weight loss, Cardiovascular: Negative jh7 for chest pain, palpitations, and edema, Respiratory: Negative for shortness of breath, cough, wheezing, and pleuritic chest pain, Abdomen/GI: Negative for abdominal pain, nausea, vomiting, diarrhea, and constipation, MS/Extremity: Negative for injury and deformity, Skin: Negative for injury, rash, and discoloration, Neuro: Negative for headache, weakness, numbness, tingling, and seizure. 10:22 Back: Positive for pain with movement, of the sacrum. 10:22 All other systems are negative. Exam: 10:22 Back: pain, that is moderate, of the sacrum. jh7 10:22 Back: muscle spasm, is appreciated in the sacrum, NVI, paraspinal sacral pain radiating jh7 down glutes and BLE. No swelling or TTP noted.. 10:22 Constitutional: This is a well developed, well nourished patient who is awake, alert, jh7 and in no acute distress. Neck: Trachea midline, no thyromegaly or masses palpated, and no cervical lymphadenopathy. Supple, full range of motion without nuchal rigidity, or vertebral point tenderness. No Meningismus. Cardiovascular: Regular rate and rhythm with a normal S1 and S2. No gallops, murmurs, or rubs. Normal PMI, no JVD. No pulse deficits. Respiratory: Lungs have equal breath sounds bilaterally, clear to auscultation and percussion. No rales, rhonchi or wheezes noted. No increased work of breathing, no retractions or nasal flaring. Skin: Warm, dry with normal turgor. Normal color with no rashes, no lesions, and no evidence of cellulitis. MS/ Extremity: Pulses equal, no cyanosis. Neurovascular intact. Full, normal range of motion. Neuro: Awake and alert, GCS 15, oriented to person, place, time, and situation. Motor strength 5/5 in all extremities. Sensory grossly intact. Normal gait. Vital Signs: 10:16 BP 149 / 89; Pulse 106; Resp 22; Temp 98.1; Pulse Ox 94% ; Weight 181.44 kg; Height 6 kl ft. 0 in. (182.88 cm); Pain 8/10; 11:14 BP 134 / 74; Pulse 99; Resp 20; Pulse Ox 90% ; jl7 10:16 Body Mass Index 54.25 (181.44 kg, 182.88 cm) MDM: 10:24 Patient medically screened. [facility] 11:00 Differential diagnosis: Chronic back pain, sciatica. Data reviewed: vital signs, nurses [facility] notes. Data interpreted: Pulse oximetry: is 95 %. Interpretation: normal. 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 Administered Medications: 10:35 Drug: Ketorolac 60 mg Route: IM; Site: left gluteus; 7 11:16 Follow up: Response: No adverse reaction jl7 10:35 Drug: Flexeril (cyclobenzaprine) 10 mg Route: PO; bm7 11:16 Follow up: Response: No adverse reaction 7 10:35 Drug: [place] (HYDROcodone-acetaminophen) (7.5 mg-325 mg) 1 tabs Route: PO; bm7 11:15 Follow up: Response: No adverse reaction 7 Disposition: 15:42 Co-signature as Attending Physician, Nathan Mcmahon MD I agree with the assessment and kdr plan of care. Disposition Summary: 05/22/22 10:58 Discharge Ordered Location: Home [facility] Problem: chronic [facility] Symptoms: are unchanged [facility] Condition: Stable [facility] Diagnosis - Sciatica [facility] - Sacral Pain [facility] Followup: [facility] - With: Private Physician - When: 2 - 3 days - Reason: Recheck today's complaints Discharge Instructions: - Discharge Summary Sheet [facility] - Chronic Back Pain [facility] - Sciatica [facility] - Back Exercises [facility] Forms: - Medication Reconciliation Form [facility] - Thank You Letter [facility] - Prescription Opioid Use [facility] Prescriptions: - Zanaflex 4 mg Oral Tablet - take 1 tablet by ORAL route every 8 hours As needed; 20 tablet; Refills: 0, [facility] Product Selection Permitted - Tramadol 50 mg Oral Tablet - take 1 tablet by ORAL route every 8 hours as needed; 12 tablet; Refills: 0, [facility] Product Selection Permitted - Medrol (Richi) 4 mg Oral Tablets, Dose Pack - take 1 tablet by ORAL route as directed - follow package instructions; 1 [facility] packet; Refills: 0, Product Selection Permitted Signatures: Catina Vick RN RN kl Rittger, Kevin, MD MD kdr Leal, Jahala, RN RN jl7 Dipti Hall RN RN bm7 Tana Hammonds FNP [place] [address]
[2022-05-22 11:46] VITALS: TEMP 98.1
[2022-05-22 11:48] VITALS: BP 134/74; O2SAT 90
== END 2022-05-22 11:16 | disposition home or self-care (01) ==
LOC: ER 10:07
DX: M54.30 Sciatica, unspecified side (principal); M53.3 Sacrococcygeal disorders, not elsewhere classified; I10 Essential (primary) hypertension; F17.210 Nicotine dependence, cigarettes, uncomplicated
CPT/HCPCS: 96372; 99284

== ENCOUNTER 2022-05-28 17:58 | Emergency (ER) | payer SELFPAY ==
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
[2022-05-28] MEDS ORDERED: CYCLOBENZAPRINE 10 MG TAB ONE (18:47)
[2022-05-28] MEDS ORDERED: KETOROLAC 30 MG/ML INJ ONE (18:48)
[2022-05-28] MEDS ORDERED: HYDROCODONE/APAP 7.5/325 MG TAB ONE (18:48)
--- NOTE | 2022-05-28 18:49 | EDPHYS ---
Physician Documentation [facility] Name: Kenny Fallon Age: 36 yrs Sex: Male : 1985 Arrival Date: 05/28/2022 Time: 18:01 Bed 16 Private MD: ED Physician Papa Leo HPI: 05/28 18:31 This 36 yrs old Male presents to ER via Wheelchair with complaints of Trouble jl9 Walking, Back Pain. Patient has a history of chronic back pain. Patient reports that he is unable to see a PCP due to finances and just needs pain managment. . 18:31 The patient presents to the emergency department with difficult walking, painful.. jl9 Onset: The symptoms/episode began/occurred 1 week(s) ago. Associated signs and symptoms: Pertinent negatives: paresthesias. Severity of symptoms: Pain is currently a 6 / 10. The patient has experienced similar episodes in the past. Historical: - Allergies: 18:10 No Known Allergies; jl7 - Home Meds: 18:10 None [Active]; jl7 - PMHx: 18:10 Hyperlipidemia; Hypertension; jl7 - Immunization history:: Adult Immunizations unknown. - Social history:: Smoking status: unknown. ROS: 18:34 Constitutional: Negative for fever, chills, and weight loss, Eyes: Negative for injury, jl9 pain, redness, and discharge, ENT: Negative for injury, pain, and discharge, Neck: Negative for injury, pain, and swelling, Cardiovascular: Negative for chest pain, palpitations, and edema, Respiratory: Negative for shortness of breath, cough, wheezing, and pleuritic chest pain, Abdomen/GI: Negative for abdominal pain, nausea, vomiting, diarrhea, and constipation. 18:34 : Negative for injury, bleeding, discharge, and swelling, MS/Extremity: Negative for injury and deformity, Skin: Negative for injury, rash, and discoloration, Neuro: Negative for headache, weakness, numbness, tingling, and seizure, Psych: Negative for depression, anxiety, suicide ideation, homicidal ideation, and hallucinations, Allergy/Immunology: Negative for hives, rash, and allergies, Endocrine: Negative for neck swelling, polydipsia, polyuria, polyphagia, and marked weight changes, Hematologic/Lymphatic: Negative for swollen nodes, abnormal bleeding, and unusual bruising. 18:34 Back: Positive for pain with movement. Exam: 18:35 Constitutional: This is a well developed, well nourished patient who is awake, alert, jl9 and in no acute distress. Head/Face: Normocephalic, atraumatic. Eyes: Pupils equal round and reactive to light, extra-ocular motions intact. Lids and lashes normal. Conjunctiva and sclera are non-icteric and not injected. Cornea within normal limits. Periorbital areas with no swelling, redness, or edema. ENT: Mucous membranes moist. Neck: Trachea midline, no thyromegaly or masses palpated, and no cervical lymphadenopathy. Supple, full range of motion without nuchal rigidity, or vertebral point tenderness. No Meningismus. Chest/axilla: Normal chest wall appearance and motion. Nontender with no deformity. No lesions are appreciated. Cardiovascular: Regular rate and rhythm with a normal S1 and S2. No gallops, murmurs, or rubs. Normal PMI, no JVD. No pulse deficits. Respiratory: Lungs have equal breath sounds bilaterally, clear to auscultation and percussion. No rales, rhonchi or wheezes noted. No increased work of breathing, no retractions or nasal flaring. Abdomen/GI: Soft, non-tender, with normal bowel sounds. No distension or tympany. No guarding or rebound. No evidence of tenderness throughout. 18:35 Skin: Warm, dry with normal turgor. Normal color with no rashes, no lesions, and no evidence of cellulitis. MS/ Extremity: Pulses equal, no cyanosis. Neurovascular intact. Full, normal range of motion. Neuro: Awake and alert, GCS 15, oriented to person, place, time, and situation. Cranial nerves II-XII grossly intact. Motor strength 5/5 in all extremities. Sensory grossly intact. Cerebellar exam normal. Normal gait. Psych: Awake, alert, with orientation to person, place and time. Behavior, mood, and affect are within normal limits. 18:35 Back: pain, that is moderate, of the lumbar area and sacrum, ROM is painful, normal spinal alignment noted, CVA tenderness, is absent, muscle spasm, is appreciated in the lumbar area and sacrum. Vital Signs: 18:07 BP 140 / 96; Pulse 117; Resp 20; Temp 97; Pulse Ox 96% ; Weight 181.44 kg; Height 6 ft. jl7 0 in. (182.88 cm); Pain 10/10; 18:57 BP 155 / 84; Pulse 118; Resp 22; Pulse Ox 97% ; ko1 19:30 BP 127 / 97; Pulse 111; Resp 20; Pulse Ox 95% on R/A; jb4 18:07 Body Mass Index 54.25 (181.44 kg, 182.88 cm) jl7 [place] Coma Score: 19:00 Eye Response: spontaneous(4). Verbal Response: oriented(5). Motor Response: obeys ko1 commands(6). Total: 15. MDM: 18:23 Patient medically screened. jl9 18:35 Data reviewed: vital signs, nurses notes. jl9 18:48 Counseling: I had a detailed discussion with the patient and/or guardian regarding: the jl9 historical points, exam findings, and any diagnostic results supporting the discharge/admit diagnosis, the need for outpatient follow up, to return to the emergency department if symptoms worsen or persist or if there are any questions or concerns that arise at home. Administered Medications: 18:55 Drug: [place] (HYDROcodone-acetaminophen) (7.5 mg-325 mg) 1 tabs Route: PO; ko1 18:56 Drug: Cyclobenzaprine 10 mg Route: PO; ko1 18:56 Drug: Ketorolac 60 mg Route: IM; Site: left deltoid; ko1 Disposition Summary: 05/28/22 18:49 Discharge Ordered Location: Home jl9 Condition: Stable jl9 Diagnosis - Low back pain jl9 Followup: jl9 - With: Private Physician - When: 1 - 2 days - Reason: Recheck today's complaints, Continuance of care, Re-evaluation by your physician Discharge Instructions: - Discharge Summary Sheet jl9 - Chronic Back Pain jl9 Forms: - Work release form mw2 - Medication Reconciliation Form jl9 - Thank You Letter jl9 - Antibiotic Education jl9 - Prescription Opioid Use jl9 Prescriptions: - gabapentin 300 mg Oral capsule - take 1 capsule by ORAL route 3 times per day; 30 capsule; Refills: 0, Product jl9 Selection Permitted - Cyclobenzaprine 10 mg Oral Tablet - take 1 tablet by ORAL route every 8 hours As needed; 30 tablet; Refills: 0, jl9 Product Selection Permitted - Tylenol-Codeine #3 300 mg-30 mg Oral - take 1 tablet by ORAL route every 6 hours As needed; 20 tablet; Refills: 0, jl9 Product Selection Permitted Signatures: Griffin Downing RN RN jl7 Dileep Carrasco jl9 Raquel Dunham RN RN ko1 Corrections: (The following items were deleted from the chart) 18:34 18:31 This 36 yrs old Male presents to ER via Wheelchair with complaints of jl9 Trouble Walking, Back Pain. Patient has a history of chronic back pain. . jl9
--- NOTE | 2022-05-28 18:49 | ER ---
Nurse's Notes [facility] Name: Kenny Fallon Age: 36 yrs Sex: Male : 1985 Arrival Date: 05/28/2022 Time: 18:01 Bed 16 Private MD: Diagnosis: Low back pain Presentation: 05/28 18:07 Chief complaint: Patient states: Low back pain, hx of 2 or 3 bulging disc and spurs. jl7 Started having trouble walking about 2.5 weeks ago. Pain meds prescribed here last time do not touch the pain. I can't work and I need some relief to be able to work. Coronavirus screen: At this time, the client does not indicate any symptoms associated with coronavirus-19. Ebola Screen: No symptoms or risks identified at this time. Initial Sepsis Screen: Does the patient meet any 2 criteria? No. Patient's initial sepsis screen is negative. Does the patient have a suspected source of infection? No. Patient's initial sepsis screen is negative. Risk Assessment: Do you want to hurt yourself or someone else? Patient reports no desire to harm self or others. Onset of symptoms was May 10, 2022. 18:07 Method Of Arrival: Wheelchair jl7 18:07 Acuity: TRINI 3 jl7 Triage Assessment: 18:10 General: Appears in no apparent distress. uncomfortable, obese, Behavior is calm, jl7 cooperative, appropriate for age. Pain: Complains of pain in low back area Pain currently is 10 out of 10 on a pain scale. Historical: - Allergies: 18:10 No Known Allergies; jl7 - Home Meds: 18:10 None [Active]; jl7 - PMHx: 18:10 Hyperlipidemia; Hypertension; jl7 - Immunization history:: Adult Immunizations unknown. - Social history:: Smoking status: unknown. Screenin:00 Abuse screen: Denies threats or abuse. Denies injuries from another. Nutritional ko1 screening: No deficits noted. Tuberculosis screening: No symptoms or risk factors identified. Fall Risk None identified. Assessment: 19:00 General: Appears in no apparent distress. uncomfortable, obese, unkempt, Behavior is ko1 calm, cooperative, appropriate for age. Pain: Complains of pain in lumbar area, left low back and right low back. Neuro: No deficits noted. Cardiovascular: No deficits noted. Respiratory: No deficits noted. GI: No deficits noted. : No deficits noted. EENT: No deficits noted. Derm: No deficits noted. Musculoskeletal: No deficits noted. 19:35 Reassessment: Patient appears in no apparent distress at this time. Patient and/or jb4 family updated on plan of care and expected duration. Pain level reassessed. Patient is alert, oriented x 3, equal unlabored respirations, skin warm/dry/pink. Pt request to speak with provider. Provider at bedside. Pt verbalized understanding of d/c and follow up instructions. Denies questions or concerns. Assisted to vehicle via wheel chair. Vital Signs: 18:07 BP 140 / 96; Pulse 117; Resp 20; Temp 97; Pulse Ox 96% ; Weight 181.44 kg; Height 6 ft. jl7 0 in. (182.88 cm); Pain 10/10; 18:57 BP 155 / 84; Pulse 118; Resp 22; Pulse Ox 97% ; ko1 19:30 BP 127 / 97; Pulse 111; Resp 20; Pulse Ox 95% on R/A; jb4 18:07 Body Mass Index 54.25 (181.44 kg, 182.88 cm) jl7 [place] Coma Score: 19:00 Eye Response: spontaneous(4). Verbal Response: oriented(5). Motor Response: obeys ko1 commands(6). Total: 15. ED Course: 18:01 Patient arrived in ED. mr 18:10 Triage completed. jl7 18:10 Arm band placed on right wrist. jl7 18:23 [facility] is [facility]. jl9 18:23 Papa Leo MD is Attending Physician. jl9 18:49 Raquel Dunham, IAN is Primary Nurse. ko1 19:00 Patient has correct armband on for positive identification. Bed in low position. Call ko1 light in reach. Side rails up X 1. 19:00 IV discontinued. ko1 19:15 No provider procedures requiring assistance completed. ko1 Administered Medications: 18:55 Drug: [place] (HYDROcodone-acetaminophen) (7.5 mg-325 mg) 1 tabs Route: PO; ko1 18:56 Drug: Cyclobenzaprine 10 mg Route: PO; ko1 18:56 Drug: Ketorolac 60 mg Route: IM; Site: left deltoid; ko1 Medication: 19:00 VIS not applicable for this client. ko1 Outcome: 18:49 Discharge ordered by . ailyn 19:30 Discharged to home via wheelchair, with family. jb4 19:30 Condition: stable 19:30 Discharge instructions given to patient, family, Instructed on discharge instructions, follow up and referral plans. no drinking with medication, no driving heavy equipment, medication usage, Demonstrated understanding of instructions, follow-up care, medications, Prescriptions given X 3. 19:40 Patient left the ED. jb4 Signatures: Patricia Callaway James, RN RN jb4 Griffin Downing RN RN jl7 Dileep Carrasco9 Raquel Dunham RN RN ko1
[2022-05-28 19:52] VITALS: TEMP 97
[2022-05-28 19:55] VITALS: BP 127/97; O2SAT 95
== END 2022-05-28 19:40 | disposition home or self-care (01) ==
LOC: ER 17:58
DX: M54.50 Low back pain, unspecified (principal)
CPT/HCPCS: 96372; 99283

== ENCOUNTER 2023-06-21 16:56 | Emergency (ER) | payer OTHER, SELFPAY ==
--- OUTSIDE RECORDS SUMMARY | 2023-06-21 17:03 | XMS REPORT | Continuity of Care Document ---
:1985 Author Organization [facility] t Address [address] [place] [address] Care Team Providers Name Role Phone Asked, No Pcp Primary Care Physician Unavailable CLAUDIA MCDOWELL Attending Clinician Unavailable CLAUDIA MCDOWELL Attending Clinician Unavailable Doctor Unassigned, [place] Attending Clinician Unavailable Elda Pathak MD Attending Clinician ELDA PATHAK Attending Clinician Unavailable , Sleep Lab Bed Attending Clinician Unavailable Claudia Mcdowell MD Attending Clinician RADHA JORDAN Attending Clinician Unavailable Radha Luna Attending Clinician [facility] Sleep Attending Clinician Venkatesh Powell Attending Clinician Unavailable Neris Manrique Attending Clinician NERIS TURNER Attending Clinician Unavailable PAUL TAVERAS Attending Clinician Unavailable Paul Taveras MD Attending Clinician Physician, No Primary or Family Admitting Clinician UnavailPAUL Guerrier Admitting Clinician Unavailable Payers Payer Name Policy Type Policy Number Effective Date Expiration Date Ava richardson [facility] [id number] 2022 00:00:00 [place]ICAID OF [place] [id number] 2022 00:00:00 COMMERCIAL [id number] 2017 NON-CONTRACT 00:00:00 GENERIC Problems Condition Condition Condition Status Onset Resolution Last Treating Co mments Source Name Details Category Date Date Treatment Clinician Date Morbid Morbid Disease Active 2021-09 [facility] obesity obesity 1-10 [place] index 00 [place] dical (BMI) of (BMI) of Branch 40.0 or 40.0 or higher higher Chronic Chronic Disease Active 2021-09 [facility] pain of pain of 1-10 [place] Elevated Elevated Disease Active 2021-09 Unive rs BP without BP without 1-10 [place] of diagnosis [place] 00:[place] of of 00 Medical hypertensi hypertensi Br anch on on Mobility Mobility Disease Active 2021-09 Unive rs impaired impaired 1-10 ity of 00:00: [place] 00 [facility] Branch Snoring Snoring Disease Active 2021-09 Univers 1-10 ity of 00:00: [place] 00 Medical Branch Chronic Chronic Disease Active 2021-09 Univers midline midline 1-10 ity of low back low back 00:00: [place] pain pain 00 Medical without without Branch sciatica sciatica No known No known Disease Unive rs active active ity of problems problems [facility] Allergies, Adverse Reactions, Alerts Allergy Allergy Status Severity Reaction(s) Onset Inactive Treating Comm ents Source Name Type Date Date Clinician No Known DA Active [facility] 9-03 [facility] 00:[facility] e 00 [facility] No Known DA Active [facility] Allergie 6-11 [facility] 00:00: e 00 [facility] NO KNOWN Drug Active [facility] ALLERGIE Class ity of S [facility] Social History Social Habit Start Date Stop Date Quantity Comments Source History SDMS [facility] Std Dr[facility] Hospit al History SDOH [facility] Gender identity [facility]it y of [facility] History of tobacco Smokes tobacco Un iversity of use daily [facility] Sexual orientation Method ist Hospital Exposure to 2023-02-04 2023-02-14 Not sure University SARS-CoV-2 (event) 00:00:00 04:02:00 [facility] Tobacco use and 2021-10-05 2021-10-05 Smokeless Universit y of exposure 00:00:00 00:00:00 tobacco non-user [facility] dical [place] History of Social 2019-05-10 2019-05-[address] function 00:00:00 00:00:00 Hospital History SDOH 2019-04-17 2019-04-17 1 [facility] Alcohol Frequency 00:00:00 00:00:00 [facility] Cigarettes smoked 2019-04-17 2019-04-[address] current (pack per 00:00:00 00:00:00 [facility]ospita [facility] day) - Reported Alcohol intake 2019-04-17 2019-04-17 Lifetime [facility] 00:00:00 00:00:00 non-drinker Hospital (finding) Sex Ass[birth year] At [birth year] [facility] 00:00:00 00:00:00 Hospital Smoking Status Start Date Stop Date Source Smokes tobacco daily 2021-10-05 00:00:00 [facility] ity [facility] Medications Ordered Filled Start Stop Current Ordering Indication Dosage Frequency Signature Comments Components Source Medication Medication Date Date Medication? Clinician (SIG) Name Name atorvastati Yes [id number] 40mg Take 1 Univers n 40 mg 7-13 tablet by ity of tablet 00:00: mouth at [place] 00 bedtime. Medical Branch metformin Yes [id number] 500mg Take 1 Univers ER 500 mg 7-13 tablet by ity o f 24 hr 00:00: mouth [place] tablet 00 daily with Medical breakfast. Branch cyclobenzap Yes [id number] 10mg Take 1 Univers rine 10 mg 7-13 tablet by ity of tablet 00:00: mouth in [place] 00 the Medical morning Branch and 1 tablet at noon and 1 tablet in the evening. gabapentin Yes [id number] 300mg Take 1 [facility] 300 mg 7-13 capsule by ity of capsule 00:00: mouth in [place] 00 the Medical morning Branch and 1 capsule at noon and 1 capsule in the evening. atorvastati 2022-0 Yes [id number] 40mg Take 1 Univers n 40 mg 7-13 tablet by ity of tablet 00:00: mouth at [place] 00 bedtime. Medical Branch metformin 2022-0 Yes [id number] 500mg Take 1 [facility] ER 500 mg 7-13 tablet by ity o f 24 hr 00:00: mouth [place] tablet 00 daily with Medical breakfast. Branch cyclobenzap 2022-0 Yes [id number] 10mg Take 1 Univers rine 10 mg 7-13 tablet by ity of tablet 00:00: mouth in [place] 00 the Medical morning Branch and 1 tablet at noon and 1 tablet in the evening. gabapentin 2022-0 Yes [id number] 300mg Take 1 [facility] 300 mg 7-13 capsule by ity of capsule 00:00: mouth in [place] 00 the Medical morning Branch and 1 capsule at noon and 1 capsule in the evening. MOUNJARO 5 2022-0 Yes [id number] 5mg INJECT 5 Univers mg/0.5 mL 6-27 MG UNDER ity of PnIj 00:00: THE SKIN [place] 00 WEEKLY. Medical Branch MOUNJARO 5 2022-0 Yes [id number] 5mg INJECT 5 Univers mg/0.5 mL 6-27 MG UNDER ity of PnIj 00:00: THE SKIN [place] 00 WEEKLY. Medical Branch MOUNJARO 5 2022-0 Yes [id number] 5mg INJECT 5 Univers mg/0.5 mL 6-27 MG UNDER ity of PnIj 00:00: THE SKIN [place] 00 WEEKLY. Medical Branch cyclobenzap 2022-0 Yes [id number] 10mg Take 1 Univers rine 10 mg 4-11 tablet by ity of tablet 00:00: mouth in [place] 00 the Medical morning Branch and 1 tablet at noon and 1 tablet in the evening. gabapentin 2022-0 Yes [id number] 300mg Take 1 [facility] 300 mg 4-11 capsule by ity of capsule 00:00: mouth in [place] 00 the Medical morning Branch and 1 capsule at noon and 1 capsule in the evening. meloxicam 2022-0 Yes [id number] 7.5mg Take 1 Univers 7.5 mg 4-11 tablet by ity of tablet 00:00: mouth [place] 00 every Medical morning. Branch tirzepatide 3-0 Yes [id number] 5mg inject 5 Univers (MOUNJARO) 4-11 mg under ity o f 5 mg/0.5 mL 00:00: the skin [place] PnIj 00 weekly. Medical Branch cyclobenzap 2022-0 Yes [id number] 10mg Take 1 Univers rine 10 mg 4-11 tablet by ity of tablet 00:00: mouth in [place] 00 the Medical morning Branch and 1 tablet at noon and 1 tablet in the evening. gabapentin 3-0 Yes [id number] 300mg Take 1 [facility] 300 mg 4-11 capsule by ity of capsule 00:00: mouth in [place] 00 the Medical morning Branch and 1 capsule at noon and 1 capsule in the evening. meloxicam 3-0 Yes [id number] 7.5mg Take 1 [facility] 7.5 mg 4-11 tablet by ity of tablet 00:00: mouth [place] 00 every Medical morning. Branch tirzepatide 2022-0 Yes [id number] 5mg inject 5 Univers (MOUNJARO) 4-11 mg under ity o f 5 mg/0.5 mL 00:00: the skin [place] PnIj 00 weekly. Medical Branch cyclobenzap 2022-0 Yes [id number] 10mg Take 1 [facility] rine 10 mg 4-11 tablet by ity of tablet 00:00: mouth in [place] 00 the Medical morning Branch and 1 tablet at noon and 1 tablet in the evening. gabapentin 3-0 Yes [id number] 300mg Take 1 [facility] 300 mg 4-11 capsule by ity of capsule 00:00: mouth in [place] 00 the Medical morning Branch and 1 capsule at noon and 1 capsule in the evening. meloxicam 2023-0 Yes [id number] 7.5mg Take 1 [facility] 7.5 mg 4-11 tablet by ity of tablet 00:00: mouth [place] 00 every Medical morning. Branch tirzepatide 2022-0 Yes [id number] 5mg inject 5 Univers (MOUNJARO) 4-11 mg under ity o f 5 mg/0.5 mL 00:00: the skin [place] PnIj 00 weekly. Medical Branch cyclobenzap 2022-0 Yes [id number] 10mg Take 1 [facility] rine 10 mg 4-11 tablet by ity of tablet 00:00: mouth in [place] 00 the Medical morning Branch and 1 tablet at noon and 1 tablet in the evening. gabapentin 2023-0 Yes [id number] 300mg Take 1 [facility] 300 mg 4-11 capsule by ity of capsule 00:00: mouth in [place] 00 the Medical morning Branch and 1 capsule at noon and 1 capsule in the evening. meloxicam 2023-0 Yes [id number] 7.5mg Take 1 [facility] 7.5 mg 4-11 tablet by ity of tablet 00:00: mouth [place] 00 every Medical morning. Branch tirzepatide 3-0 Yes [id number] 5mg inject 5 Univers (MOUNJARO) 4-11 mg under ity o f 5 mg/0.5 mL 00:00: the skin [place] PnIj 00 weekly. Medical Branch cyclobenzap 2022-0 Yes [id number] 10mg Take 1 [facility] rine 10 mg 4-11 tablet by ity of tablet 00:00: mouth in [place] the Medical morning Branch and 1 tablet at noon and 1 tablet in the evening. gabapentin 3-0 Yes [id number] 300mg Take 1 [facility] 300 mg 4-11 capsule by ity of capsule 00:00: mouth in [place] the Medical morning Branch and 1 capsule at noon and 1 capsule in the evening. meloxicam 2023-0 Yes [id number] 7.5mg Take 1 [facility] 7.5 mg 4-11 tablet by ity of tablet 00:00: mouth [place] every Medical morning. Branch tirzepatide 3-0 Yes [id number] 5mg inject 5 Univers (MOUNJARO) 4-11 mg under ity o f 5 mg/0.5 mL 00:00: the skin [place] PnIj 00 weekly. Medical Branch cyclobenzap 2023-0 Yes [id number] 10mg Take 1 [facility] rine 10 mg 4-11 tablet by ity of tablet 00:00: mouth in [place] 00 the Medical morning Branch and 1 tablet at noon and 1 tablet in the evening. gabapentin 2023-0 Yes [id number] 300mg Take 1 [facility] 300 mg 4-11 capsule by ity of capsule 00:00: mouth in [place] 00 the Medical morning Branch and 1 capsule at noon and 1 capsule in the evening. meloxicam 2023-0 Yes [id number] 7.5mg Take 1 Univers 7.5 mg 4-11 tablet by ity of tablet 00:00: mouth [place] 00 every Medical morning. Branch tirzepatide 2022-0 Yes [id number] 5mg inject 5 Univers (MOUNJARO) 4-11 mg under ity o f 5 mg/0.5 mL 00:00: the skin [place] PnIj 00 weekly. Medical Branch cyclobenzap 2022-0 Yes [id number] 10mg Take 1 [facility] rine 10 mg 4-11 tablet by ity of tablet 00:00: mouth in [place] 00 the Medical morning Branch and 1 tablet at noon and 1 tablet in the evening. gabapentin 3-0 Yes [id number] 300mg Take 1 [facility] 300 mg 4-11 capsule by ity of capsule 00:00: mouth in [place] 00 the Medical morning Branch and 1 capsule at noon and 1 capsule in the evening. meloxicam 3-0 Yes [id number] 7.5mg Take 1 [facility] 7.5 mg 4-11 tablet by ity of tablet 00:00: mouth [place] 00 every Medical morning. Branch tirzepatide 2022-0 Yes [id number] 5mg inject 5 Univers (MOUNJARO) 4-11 mg under ity o f 5 mg/0.5 mL 00:00: the skin [place] PnIj 00 weekly. Medical Branch cyclobenzap 2022-0 Yes [id number] 10mg Take 1 [facility] rine 10 mg 4-11 tablet by ity of tablet 00:00: mouth in [place] 00 the Medical morning Branch and 1 tablet at noon and 1 tablet in the evening. gabapentin 2023-0 Yes [id number] 300mg Take 1 [facility] 300 mg 4-11 capsule by ity of capsule 00:00: mouth in [place] 00 the Medical morning Branch and 1 capsule at noon and 1 capsule in the evening. meloxicam 2023-0 Yes [id number] 7.5mg Take 1 Univers 7.5 mg 4-11 tablet by ity of tablet 00:00: mouth [place] 00 every Medical morning. Branch meloxicam 2023-0 Yes [id number] 7.5mg Take 1 Univers 7.5 mg 4-11 tablet by ity of tablet 00:00: mouth [place] 00 every Medical morning. Branch meloxicam Yes [id number] 7.5mg Take 1 Univers 7.5 mg 4-11 tablet by ity of tablet 00:00: mouth [place] 00 every Medical morning. Branch cyclobenzap 0 2022- No [id number] 10mg Take 1 Univers rine 10 mg 4-11 07-12 tablet by ity of tablet 00:00: 00:00 mouth in [place] 00 :00 the Medical morning Branch and 1 tablet at noon and 1 tablet in the evening. gabapentin 0 2022- No [id number] 300mg Take 1 Univers 300 mg 4- 07-12 capsule by ity of capsule 00:00: 00:00 mouth in [place] 00 :00 the Medical morning Branch and 1 capsule at noon and 1 capsule in the evening. tirzepatide 2022- No [id number] 5mg inject 5 Univers (MOUNJARO) 4-11 06-27 mg under ity of 5 mg/0.5 mL 00:00: 00:00 the skin [place] PnIj 00 :00 weekly. Medical Branch fluticasone Yes [id number] 1{spray Use 1 Univers propionate 2-16 } [employer] in ity o f 50 00:00: each [place] mcg/actuati 00 nostril in Me dical on nasal the Branch spray morning and 1 [employer] in the evening. gabapentin Yes [id number] 300mg Take 1 [facility] 300 mg 2-16 capsule by ity of capsule 00:00: mouth in [place] 00 the Medical morning Branch and 1 capsule at noon and 1 capsule in the evening. cyclobenzap Yes [id number] 10mg Take 1 [facility] rine 10 mg 2-16 tablet by ity of tablet 00:00: mouth in [place] 00 the Medical morning Branch and 1 tablet at noon and 1 tablet in the evening. meloxicam 2022-0 Yes [id number] 7.5mg Take 1 Univers 7.5 mg 2-16 tablet by ity of tablet 00:00: mouth [place] 00 every Medical morning. Branch dulaglutide Yes [id number] 1.5mg inject 1 Univers (TRULICITY) 2-16 Pen under ity of 1.5 mg/0.5 00:00: the skin [place] mL PnIj 00 weekly. Medical Branch fluticasone 3-0 Yes [id number] 1{spray Use 1 [facility] propionate 2-16 } [employer] in ity o f 50 00:00: each [place] mcg/actuati 00 nostril in Me dical on nasal the Branch spray morning and 1 [employer] in the evening. gabapentin 2022-0 Yes [id number] 300mg Take 1 [facility] 300 mg 2-16 capsule by ity of capsule 00:00: mouth in [place] 00 the Medical morning Branch and 1 capsule at noon and 1 capsule in the evening. cyclobenzap 202-0 Yes [id number] 10mg Take 1 Univers rine 10 mg 2-16 tablet by ity of tablet 00:00: mouth in [place] the Medical morning Branch and 1 tablet at noon and 1 tablet in the evening. meloxicam 2022-0 Yes [id number] 7.5mg Take 1 Univers 7.5 mg 2-16 tablet by ity of tablet 00:00: mouth [place] every Medical morning. Branch dulaglutide 2022-0 Yes [id number] 1.5mg inject 1 Univers (TRULICITY) 2-16 Pen under ity of 1.5 mg/0.5 00:00: the skin [place] mL PnIj 00 weekly. Medical Branch fluticasone 2022-0 Yes [id number] 1{spray Use 1 Univers propionate 2-16 } [employer] in ity o f 50 00:00: each [place] mcg/actuati 00 nostril in Me dical on nasal the Branch spray morning and 1 [employer] in the evening. gabapentin 2022-0 Yes [id number] 300mg Take 1 Univers 300 mg 2-16 capsule by ity of capsule 00:00: mouth in [place] the Medical morning Branch and 1 capsule at noon and 1 capsule in the evening. cyclobenzap 2022-0 Yes [id number] 10mg Take 1 Univers rine 10 mg 2-16 tablet by ity of tablet 00:00: mouth in [place] the Medical morning Branch and 1 tablet at noon and 1 tablet in the evening. meloxicam 2023-0 Yes [id number] 7.5mg Take 1 Univers 7.5 mg 2-16 tablet by ity of tablet 00:00: mouth [place] [address] every Medical morning. Branch dulaglutide 2022-0 Yes [id number] 1.5mg inject 1 Univers (TRULICITY) 2-16 Pen under ity of 1.5 mg/0.5 00:00: the skin [place] mL PnIj 00 weekly. Medical Branch fluticasone Yes [id number] 1{spray Use 1 Univers propionate 2-16 } [employer] in ity o f 50 00:00: each [place] mcg/actuati 00 nostril in Me dical on nasal the Branch spray morning and 1 [employer] in the evening. fluticasone 0 Yes [id number] 1{spray Use 1 Univers propionate 2-16 } [employer] in ity o f 50 00:00: each [place] mcg/actuati 00 nostril in Me dical on nasal the Branch spray morning and 1 [employer] in the evening. fluticasone 0 Yes [id number] 1{spray Use 1 Univers propionate 2-16 } [employer] in ity o f 50 00:00: each [place] mcg/actuati 00 nostril in Me dical on nasal the Branch spray morning and 1 [employer] in the evening. fluticasone 0 Yes [id number] 1{spray Use 1 Univers propionate 2-16 } [employer] in ity o f 50 00:00: each [place] mcg/actuati 00 nostril in Me dical on nasal the Branch spray morning and 1 [employer] in the evening. fluticasone 0 Yes [id number] 1{spray Use 1 Univers propionate 2-16 } [employer] in ity o f 50 00:00: each [place] mcg/actuati 00 nostril in Me dical on nasal the Branch spray morning and 1 [employer] in the evening. fluticasone 0 Yes [id number] 1{spray Use 1 [facility] propionate 2-16 } [employer] in ity o f 50 00:00: each [place] mcg/actuati 00 nostril in Me dical on nasal the Branch spray morning and 1 [employer] in the evening. fluticasone 2022-0 Yes [id number] 1{spray Use 1 [facility] propionate 2-16 } [employer] in ity o f 50 00:00: each [place] mcg/actuati 00 nostril in Me dical on nasal the Branch spray morning and 1 [employer] in the evening. fluticasone 2022-0 Yes [id number] 1{spray Use 1 [facility] propionate 2-16 } [employer] in ity o f 50 00:00: each [place] mcg/actuati 00 nostril in Me dical on nasal the Branch spray morning and 1 [employer] in the evening. fluticasone 2022-0 Yes [id number] 1{spray Use 1 [facility] propionate 2-16 } [employer] in ity o f 50 00:00: each [place] mcg/actuati 00 nostril in Me dical on nasal the Branch spray morning and 1 [employer] in the evening. fluticasone 2022-0 Yes [id number] 1{spray Use 1 Univers propionate 2-16 } [employer] in ity o f 50 00:00: each [place] mcg/actuati 00 nostril in Me dical on nasal the Branch spray morning and 1 [employer] in the evening. gabapentin 2022- No [id number] 300mg Take 1 Univers 300 mg 2-16 04-11 capsule by ity of capsule 00:00: 00:00 mouth in [place] 00 :00 the Medical morning Branch and 1 capsule at noon and 1 capsule in the evening. cyclobenzap 2022- No [id number] 10mg Take 1 Univers rine 10 mg 2-16 04-11 tablet by ity of tablet 00:00: 00:00 mouth in [place] 00 :00 the Medical morning Branch and 1 tablet at noon and 1 tablet in the evening. meloxicam 2022- No [id number] 7.5mg Take 1 Univers 7.5 mg 2-16 -11 tablet by ity of tablet 00:00: 00:00 mouth [place] 00 :00 every Medical morning. Branch dulaglutide 2022- No [id number] 1.5mg inject 1 Univers (TRULICITY) 2-16 -11 Pen under it y of 1.5 mg/0.5 00:00: 00:00 the skin [place] mL PnIj 00 :00 weekly. Medical Branch gabapentin 2022-2022- No [id number] 300mg Take 1 [facility] 300 mg 2-16 04-11 capsule by ity of capsule 00:00: 00:00 mouth in [place] 00 :00 the Medical morning Branch and 1 capsule at noon and 1 capsule in the evening. cyclobenzap 2022- No [id number] 10mg Take 1 [facility] rine 10 mg 2-16 04-11 tablet by ity of tablet 00:00: 00:00 mouth in [place] 00 :00 the Medical morning Branch and 1 tablet at noon and 1 tablet in the evening. meloxicam 2022- No [id number] 7.5mg Take 1 Univers 7.5 mg 11-02 tablet by ity of tablet 00:00: 00:00 mouth [place] 00 :00 every Medical morning. Branch dulaglutide 2022- No [id number] 1.5mg inject 1 [facility] (TRULICITY) 11-02 Pen under it y of 1.5 mg/0.5 00:00: 00:00 the skin [place] mL PnIj 00 :00 weekly. Medical Branch atorvastati Yes [id number] 40mg Take 1 [facility] n 40 mg 1-11 tablet by ity of tablet 00:00: mouth at [place] 00 bedtime. Medical Branch metformin 2022- Yes [id number] 500mg Take 1 Univers ER 500 mg 1-11 tablet by ity o f 24 hr 00:00: mouth [place] tablet 00 daily with Medical breakfast. Branch atorvastati 0 Yes [id number] 40mg Take 1 [facility] n 40 mg 1-11 tablet by ity of tablet 00:00: mouth at [place] 00 bedtime. Medical Branch metformin 2022-0 Yes [id number] 500mg Take 1 Univers ER 500 mg 1-11 tablet by ity o f 24 hr 00:00: mouth [place] tablet 00 daily with Medical breakfast. Branch atorvastati 2022-0 Yes [id number] 40mg Take 1 [facility] n 40 mg 1-11 tablet by ity of tablet 00:00: mouth at [place] 00 bedtime. Medical Branch metformin 2022-0 Yes [id number] 500mg Take 1 [facility] ER 500 mg 1-11 tablet by ity o f 24 hr 00:00: mouth [place] tablet 00 daily with Medical breakfast. Branch atorvastati 0 Yes [id number] 40mg Take 1 [facility] n 40 mg 1-11 tablet by ity of tablet 00:00: mouth at [place] 00 bedtime. Medical Branch metformin 2022-0 Yes [id number] 500mg Take 1 [facility] ER 500 mg 1-11 tablet by ity o f 24 hr 00:00: mouth [place] tablet 00 daily with Medical breakfast. Branch atorvastati 2022-0 Yes [id number] 40mg Take 1 [facility] n 40 mg 1-11 tablet by ity of tablet 00:00: mouth at [place] 00 bedtime. Medical Branch metformin 2022-0 Yes [id number] 500mg Take 1 [facility] ER 500 mg 1-11 tablet by ity o f 24 hr 00:00: mouth [place] tablet 00 daily with Medical breakfast. Branch atorvastati 2022-0 Yes [id number] 40mg Take 1 [facility] n 40 mg 1-11 tablet by ity of tablet 00:00: mouth at [place] 00 bedtime. Medical Branch metformin 2022-0 Yes [id number] 500mg Take 1 [facility] ER 500 mg 1-11 tablet by ity o f 24 hr 00:00: mouth [place] tablet 00 daily with Medical breakfast. Branch atorvastati 2022-0 Yes [id number] 40mg Take 1 [facility] n 40 mg 1-11 tablet by ity of tablet 00:00: mouth at [place] 00 bedtime. Medical Branch metformin 2022-0 Yes [id number] 500mg Take 1 [facility] ER 500 mg 1-11 tablet by ity o f 24 hr 00:00: mouth [place] tablet 00 daily with Medical breakfast. Branch atorvastati 2022-0 Yes [id number] 40mg Take 1 [facility] n 40 mg 1-11 tablet by ity of tablet 00:00: mouth at [place] 00 bedtime. Medical Branch metformin 2022-0 Yes [id number] 500mg Take 1 [facility] ER 500 mg 1-11 tablet by ity o f 24 hr 00:00: mouth [place] tablet 00 daily with Medical breakfast. Branch atorvastati 2022-0 Yes [id number] 40mg Take 1 [facility] n 40 mg 1-11 tablet by ity of tablet 00:00: mouth at [place] 00 bedtime. Medical Branch metformin 2022-0 Yes [id number] 500mg Take 1 [facility] ER 500 mg 1-11 tablet by ity o f 24 hr 00:00: mouth [place] tablet 00 daily with Medical breakfast. Branch atorvastati 2022-0 Yes [id number] 40mg Take 1 [facility] n 40 mg 1-11 tablet by ity of tablet 00:00: mouth at [place] 00 bedtime. Medical Branch metformin 2022-0 Yes [id number] 500mg Take 1 [facility] ER 500 mg 1-11 tablet by ity o f 24 hr 00:00: mouth [place] tablet 00 daily with Medical breakfast. Branch atorvastati Yes [id number] 40mg Take 1 [facility] n 40 mg 1-11 tablet by ity of tablet 00:00: mouth at [place] 00 bedtime. Medical Branch metformin 2022-0 Yes [id number] 500mg Take 1 [facility] ER 500 mg 1-11 tablet by ity o f 24 hr 00:00: mouth [place] tablet 00 daily with Medical breakfast. Branch atorvastati Yes [id number] 40mg Take 1 [facility] n 40 mg 1-11 tablet by ity of tablet 00:00: mouth at [place] 00 bedtime. Medical Branch metformin 2022-0 Yes [id number] 500mg Take 1 [facility] ER 500 mg 1-11 tablet by ity o f 24 hr 00:00: mouth [place] tablet 00 daily with Medical breakfast. Branch atorvastati Yes [id number] 40mg Take 1 [facility] n 40 mg 1-11 tablet by ity of tablet 00:00: mouth at [place] 00 bedtime. Medical Branch metformin Yes [id number] 500mg Take 1 [facility] ER 500 mg 1-11 tablet by ity o f 24 hr 00:00: mouth [place] tablet 00 daily with Medical breakfast. Branch atorvastati 2022- No [id number] 40mg Take 1 [facility] n 40 mg -11 -12 tablet by ity of tablet 00:00: 00:00 mouth at [place] 00 :00 bedtime. Medical Branch metformin 2022- No [id number] 500mg Take 1 [facility] ER 500 mg -11 07-12 tablet by ity of 24 hr 00:00: 00:00 mouth [place] tablet 00 :00 daily with Medical breakfast. Branch dulaglutide Yes [id number] 1.5mg inject 1 [facility] (TRULICITY) 1-10 Pen under ity of 1.5 mg/0.5 00:00: the skin [place] mL PnIj 00 weekly. Medical Branch dulaglutide Yes [id number] 1.5mg inject 1 [facility] (TRULICITY) 1-10 Pen under ity of 1.5 mg/0.5 00:00: the skin [place] mL PnIj 00 weekly. Medical Branch dulaglutide 2022- No [id number] 1.5mg inject 1 [facility] (TRULICITY) 1-10 02-15 Pen under it y of 1.5 mg/0.5 00:00: 00:00 the skin [place] mL PnIj 00 :00 weekly. Medical Branch cyclobenzap 2022-0 Yes [id number] 10mg Take 1 [facility] rine 10 mg 1-05 tablet by ity of tablet 00:00: mouth in [place] 00 the Medical morning Branch and 1 tablet at noon and 1 tablet in the evening. meloxicam 2022-0 Yes [id number] 7.5mg Take 1 [facility] 7.5 mg 1-05 tablet by ity of tablet 00:00: mouth [place] 00 every Medical morning. Branch cyclobenzap 0 Yes [id number] 10mg Take 1 [facility] rine 10 mg 1-05 tablet by ity of tablet 00:00: mouth in [place] 00 the Medical morning Branch and 1 tablet at noon and 1 tablet in the evening. meloxicam 2022-0 Yes [id number] 7.5mg Take 1 [facility] 7.5 mg 1-05 tablet by ity of tablet 00:00: mouth [place] 00 every Medical morning. Branch cyclobenzap 0 Yes [id number] 10mg Take 1 [facility] rine 10 mg 1-05 tablet by ity of tablet 00:00: mouth in [place] 00 the Medical morning Branch and 1 tablet at noon and 1 tablet in the evening. meloxicam 2022-0 Yes [id number] 7.5mg Take 1 [facility] 7.5 mg 1-05 tablet by ity of tablet 00:00: mouth [place] 00 every Medical morning. Branch cyclobenzap 0 2022- No [id number] 10mg Take 1 [facility] rine 10 mg 1-05 02-15 tablet by ity of tablet 00:00: 00:00 mouth in [place] 00 :00 the Medical morning Branch and 1 tablet at noon and 1 tablet in the evening. meloxicam 2022-0 2022- No [id number] 7.5mg Take 1 [facility] 7.5 mg 1-05 02-15 tablet by ity of tablet 00:00: 00:00 mouth [place] 00 :00 every Medical morning. Branch MOUNJARO 5 2021-09 Yes [id number] INJECT 5 [facility] mg/0.5 mL 2-27 MG UNDER ity of PnIj 00:00: THE SKIN [place] 00 WEEKLY. Medical Branch MOUNJARO 5 2021-09 Yes [id number] INJECT 5 [facility] mg/0.5 mL 2-27 MG UNDER ity of PnIj 00:00: THE SKIN [place] 00 WEEKLY. Medical Branch MOUNJARO 5 2021-09- No [id number] INJECT 5 [facility] mg/0.5 mL 2-27 01-10 MG UNDER ity o f PnIj 00:00: 00:00 THE SKIN [place] 00 :00 WEEKLY. Medical Branch tirzepatide 2021-09 Yes [id number] 5mg inject 5 [facility] 5 mg/0.5 mL 2-23 mg under ity of PnIj 00:00: the skin [place] 00 weekly. Medical Branch tirzepatide 2021-09 Yes [id number] 5mg inject 5 [facility] 5 mg/0.5 mL 2-23 mg under ity of PnIj 00:00: the skin [place] 00 weekly. Medical Branch tirzepatide 2021-09- No [id number] 5mg inject 5 [facility] 5 mg/0.5 mL 2-23 12-27 mg under ity of PnIj 00:00: 00:00 the skin [place] 00 :00 weekly. Medical Branch dulaglutide 2021-09 Yes [id number] .75mg inject 1 [facility] (TRULICITY) 2-19 Pen under ity of 0.75 mg/0.5 00:00: the skin [place] mL PnIj 00 weekly. Medical Branch dulaglutide 2021-09- No [id number] .75mg inject 1 [facility] (TRULICITY) 2-19 12-23 Pen under it y of 0.75 mg/0.5 00:00: 00:00 the skin [place] mL PnIj 00 :00 weekly. Medical Branch dulaglutide 2021-09- No [id number] .75mg inject 1 [facility] (TRULICITY) 2-19 12-23 Pen under it y of 0.75 mg/0.5 00:00: 00:00 the skin [place] mL PnIj 00 :00 weekly. Medical Branch MELOXICAM 2021-09 Yes [id number] TAKE 1 [facility] 7.5 mg 2-15 TABLET BY ity of tablet 00:00: MOUTH [place] 00 EVERY DAY Medical IN THE Branch MORNING MELOXICAM 2021-09 Yes [id number] TAKE 1 [facility] 7.5 mg 2-15 TABLET BY ity of tablet 00:00: MOUTH [place] 00 EVERY DAY Medical IN THE [place] MORNING MELOXICAM 2021-09 Yes [id number] TAKE 1 [facility] 7.5 mg 2-15 TABLET BY ity of tablet 00:00: MOUTH [place] 00 EVERY DAY Medical IN THE [place] MORNING MELOXICAM 2021-09 Yes [id number] TAKE 1 [facility] 7.5 mg 2-15 TABLET BY ity of tablet 00:00: MOUTH [place] 00 EVERY DAY Medical IN THE [place] MORNING MELOXICAM 2021-09 Yes [id number] TAKE 1 [facility] 7.5 mg 2-15 TABLET BY ity of tablet 00:00: MOUTH [place] 00 EVERY DAY Medical IN THE [facility] MELOXICAM 2021-09 No [id number] TAKE 1 [facility] 7.5 mg 2-15 01-05 TABLET BY ity of tablet 00:00: 00:00 MOUTH [place] 00 :00 EVERY DAY Medical IN THE [facility] fluticasone 2021-09 Yes [id number] 1{spray Use 1 [facility] propionate 1-17 } [employer] in ity o f 50 00:00: each [place] mcg/actuati 00 nostril in [place] dical on nasal the [place] spray morning and 1 [employer] in the evening. semaglutide 2021-09 Yes [id number] .25mg inject [facility] (OZEMPIC) 1-17 0.25 mg ity of 0.25 mg or 00:00: under the [place] 0.5 mg(2 00 skin Medical mg/1.5 mL) weekly. [place] PnIj metformin 2021-09 Yes [id number] 500mg Take 1 [facility] ER 500 mg 1-17 tablet by ity o f 24 hr 00:00: mouth [place] tablet 00 daily with Medical breakfast. [place] atorvastati 2021-09 Yes [id number] 40mg Take 1 [facility] n 40 mg 1-17 tablet by ity of tablet 00:00: mouth at [place] 00 bedtime. [facility] gabapentin 2021-09 Yes [id number] 300mg Take 1 [facility] 300 mg 1-17 capsule by ity of capsule 00:00: mouth in [place] 00 the Medical morning Branch and 1 capsule at noon and 1 capsule in the evening. fluticasone 2021-09 Yes [id number] 1{spray Use 1 [facility] propionate 1-17 } [employer] in ity o f 50 00:00: each [place] mcg/actuati 00 nostril in Me dical on nasal the Branch spray morning and 1 [employer] in the evening. semaglutide 2021-09 Yes [id number] .25mg inject [facility] (OZEMPIC) 1-17 0.25 mg ity of 0.25 mg or 00:00: under the [place] 0.5 mg(2 00 skin Medical mg/1.5 mL) weekly. Branch PnIj metformin 2021-09 Yes [id number] 500mg Take 1 [facility] ER 500 mg 1-17 tablet by ity o f 24 hr 00:00: mouth [place] tablet 00 daily with Medical breakfast. Branch atorvastati 2021-09 Yes [id number] 40mg Take 1 [facility] n 40 mg 1-17 tablet by ity of tablet 00:00: mouth at [place] 00 bedtime. Medical Branch gabapentin 2021-09 Yes [id number] 300mg Take 1 [facility] 300 mg 1-17 capsule by ity of capsule 00:00: mouth in [place] 00 the Medical morning Branch and 1 capsule at noon and 1 capsule in the evening. fluticasone 2021-09 Yes [id number] 1{spray Use 1 [facility] propionate 1-17 } [employer] in ity o f 50 00:00: each [place] mcg/actuati 00 nostril in Me dical on nasal the Branch spray morning and 1 [employer] in the evening. semaglutide 2021-09 Yes [id number] .25mg inject [facility] (OZEMPIC) 1-17 0.25 mg ity of 0.25 mg or 00:00: under the [place] 0.5 mg(2 00 skin Medical mg/1.5 mL) weekly. Branch PnIj metformin 2021-09 Yes [id number] 500mg Take 1 [facility] ER 500 mg 1-17 tablet by ity o f 24 hr 00:00: mouth [place] tablet 00 daily with Medical breakfast. Branch atorvastati 2021-09 Yes [id number] 40mg Take 1 [facility] n 40 mg 1-17 tablet by ity of tablet 00:00: mouth at [place] 00 bedtime. Medical Branch gabapentin 2021-09 Yes [id number] 300mg Take 1 [facility] 300 mg 1-17 capsule by ity of capsule 00:00: mouth in [place] 00 the Medical morning Branch and 1 capsule at noon and 1 capsule in the evening. fluticasone 2021-09 Yes [id number] 1{spray Use 1 [facility] propionate 1-17 } [employer] in ity o f 50 00:00: each [place] mcg/actuati 00 nostril in Me dical on nasal the Branch spray morning and 1 [employer] in the evening. semaglutide 2021-09 Yes [id number] .25mg inject [facility] (OZEMPIC) 1-17 0.25 mg ity of 0.25 mg or 00:00: under the [place] 0.5 mg(2 00 skin Medical mg/1.5 mL) weekly. Branch PnIj metformin 2021-09 Yes [id number] 500mg Take 1 [facility] ER 500 mg 1-17 tablet by ity o f 24 hr 00:00: mouth [place] tablet 00 daily with Medical breakfast. Branch atorvastati 2021-09 Yes [id number] 40mg Take 1 [facility] n 40 mg 1-17 tablet by ity of tablet 00:00: mouth at [place] 00 bedtime. Medical Branch gabapentin 2021-09 Yes [id number] 300mg Take 1 [facility] 300 mg 1-17 capsule by ity of capsule 00:00: mouth in [place] 00 the Medical morning Branch and 1 capsule at noon and 1 capsule in the evening. fluticasone 2021-09 Yes [id number] 1{spray Use 1 [facility] propionate 1-17 } [employer] in ity o f 50 00:00: each [place] mcg/actuati 00 nostril in Me dical on nasal the Branch spray morning and 1 [employer] in the evening. metformin 2021-09 Yes [id number] 500mg Take 1 [facility] ER 500 mg 1-17 tablet by ity o f 24 hr 00:00: mouth [place] tablet 00 daily with Medical breakfast. Branch atorvastati 2021-09 Yes [id number] 40mg Take 1 [facility] n 40 mg 1-17 tablet by ity of tablet 00:00: mouth at [place] 00 bedtime. Medical Branch gabapentin 2021-09 Yes [id number] 300mg Take 1 [facility] 300 mg 1-17 capsule by ity of capsule 00:00: mouth in [place] 00 the Medical morning Branch and 1 capsule at noon and 1 capsule in the evening. fluticasone 2021-09 Yes [id number] 1{spray Use 1 [facility] propionate 1-17 } [employer] in ity o f 50 00:00: each [place] mcg/actuati 00 nostril in Me dical on nasal the Branch spray morning and 1 [employer] in the evening. metformin 2021-09 Yes [id number] 500mg Take 1 [facility] ER 500 mg 1-17 tablet by ity o f 24 hr 00:00: mouth [place] tablet 00 daily with Medical breakfast. Branch atorvastati 2021-09 Yes [id number] 40mg Take 1 [facility] n 40 mg 1-17 tablet by ity of tablet 00:00: mouth at [place] 00 bedtime. Medical Branch gabapentin 2021-09 Yes [id number] 300mg Take 1 [facility] 300 mg 1-17 capsule by ity of capsule 00:00: mouth in [place] 00 the Medical morning Branch and 1 capsule at noon and 1 capsule in the evening. fluticasone 2021-09 Yes [id number] 1{spray Use 1 [facility] propionate 1-17 } [employer] in ity o f 50 00:00: each [place] mcg/actuati 00 nostril in Me dical on nasal the Branch spray morning and 1 [employer] in the evening. metformin 2021-09 Yes [id number] 500mg Take 1 [facility] ER 500 mg 1-17 tablet by ity o f 24 hr 00:00: mouth [place] tablet 00 daily with Medical breakfast. Branch atorvastati 2021-09 Yes [id number] 40mg Take 1 [facility] n 40 mg 1-17 tablet by ity of tablet 00:00: mouth at [place] 00 bedtime. Medical Branch gabapentin 2021-09 Yes [id number] 300mg Take 1 [facility] 300 mg 1-17 capsule by ity of capsule 00:00: mouth in [place] 00 the Medical morning Branch and 1 capsule at noon and 1 capsule in the evening. fluticasone 2021-09 Yes [id number] 1{spray Use 1 [facility] propionate 1-17 } [employer] in ity o f 50 00:00: each [place] mcg/actuati 00 nostril in Me dical on nasal the Branch spray morning and 1 [employer] in the evening. metformin 2021-09 Yes [id number] 500mg Take 1 [facility] ER 500 mg 1-17 tablet by ity o f 24 hr 00:00: mouth [place] tablet 00 daily with Medical breakfast. Branch atorvastati 2021-09 Yes [id number] 40mg Take 1 [facility] n 40 mg 1-17 tablet by ity of tablet 00:00: mouth at [place] 00 bedtime. Medical Branch gabapentin 2021-09 Yes [id number] 300mg Take 1 [facility] 300 mg 1-17 capsule by ity of capsule 00:00: mouth in [place] 00 the Medical morning Branch and 1 capsule at noon and 1 capsule in the evening. fluticasone 2021-09 Yes [id number] 1{spray Use 1 [facility] propionate 1-17 } [employer] in ity o f 50 00:00: each [place] mcg/actuati 00 nostril in Me dical on nasal the Branch spray morning and 1 [employer] in the evening. metformin 2021-09 Yes [id number] 500mg Take 1 [facility] ER 500 mg 1-17 tablet by ity o f 24 hr 00:00: mouth [place] tablet 00 daily with Medical breakfast. Branch atorvastati 2021-09 Yes [id number] 40mg Take 1 [facility] n 40 mg 1-17 tablet by ity of tablet 00:00: mouth at [place] 00 bedtime. Medical Branch gabapentin 2021-09 Yes [id number] 300mg Take 1 [facility] 300 mg 1-17 capsule by ity of capsule 00:00: mouth in [place] 00 the Medical morning Branch and 1 capsule at noon and 1 capsule in the evening. fluticasone 2021-09 Yes [id number] 1{spray Use 1 [facility] propionate 1-17 } [employer] in ity o f 50 00:00: each [place] mcg/actuati 00 nostril in Me dical on nasal the Branch spray morning and 1 [employer] in the evening. metformin 2021-09 Yes [id number] 500mg Take 1 [facility] ER 500 mg 1-17 tablet by ity o f 24 hr 00:00: mouth [place] tablet 00 daily with Medical breakfast. Branch atorvastati 2021-09 Yes [id number] 40mg Take 1 [facility] n 40 mg 1-17 tablet by ity of tablet 00:00: mouth at [place] 00 bedtime. Medical Branch gabapentin 2021-09 Yes [id number] 300mg Take 1 [facility] 300 mg 1-17 capsule by ity of capsule 00:00: mouth in [place] 00 the Medical morning Branch and 1 capsule at noon and 1 capsule in the evening. fluticasone 2021-09 Yes [id number] 1{spray Use 1 [facility] propionate 1-17 } [employer] in ity o f 50 00:00: each [place] mcg/actuati 00 nostril in Me dical on nasal the Branch spray morning and 1 [employer] in the evening. gabapentin 2021-09 Yes [id number] 300mg Take 1 [facility] 300 mg 1-17 capsule by ity of capsule 00:00: mouth in [place] 00 the Medical morning Branch and 1 capsule at noon and 1 capsule in the evening. fluticasone 2021-09 Yes [id number] 1{spray Use 1 [facility] propionate 1-17 } [employer] in ity o f 50 00:00: each [place] mcg/actuati 00 nostril in Me dical on nasal the Branch spray morning and 1 [employer] in the evening. gabapentin 2021-09 Yes [id number] 300mg Take 1 [facility] 300 mg 1-17 capsule by ity of capsule 00:00: mouth in [place] 00 the Medical morning Branch and 1 capsule at noon and 1 capsule in the evening. fluticasone 2021-09- No [id number] 1{spray Use 1 [facility] propionate -17 -15 } [employer] in ity of 50 00:00: 00:00 each [place] mcg/actuati 00 :00 nostril in Me dical on nasal the Branch spray morning and 1 [employer] in the evening. gabapentin 2021-09- No [id number] 300mg Take 1 [facility] 300 mg 1-17 -15 capsule by ity of capsule 00:00: 00:00 mouth in [place] 00 :00 the Medical morning Branch and 1 capsule at noon and 1 capsule in the evening. metformin 2021-09- No [id number] 500mg Take 1 [facility] ER 500 mg 10-03 tablet by ity of 24 hr 00:00: 00:00 mouth [place] tablet 00 :00 daily with Medical breakfast. Branch atorvastati 2021-09- No [id number] 40mg Take 1 [facility] n 40 mg 10-03 tablet by ity of tablet 00:00: 00:00 mouth at [place] 00 :00 bedtime. Medical Branch semaglutide 2021-09- No [id number] .25mg inject [facility] (OZEMPIC) - 12-19 0.25 mg ity of 0.25 mg or 00:00: 00:00 under the [place] 0.5 mg(2 00 :00 skin Medical mg/1.5 mL) weekly. Branch PnIj semaglutide 2021-09- No [id number] .25mg inject [facility] (OZEMPIC) 1-17 12-19 0.25 mg ity of 0.25 mg or 00:00: 00:00 under the [place] 0.5 mg(2 00 :00 skin Medical mg/1.5 mL) weekly. Branch PnIj meloxicam 2021-09 Yes [id number] 7.5mg Take 1 [facility] 7.5 mg 1-10 tablet by ity of tablet 00:00: mouth in [place] the Medical morning. Branch cyclobenzap 2021-09 Yes [id number] 10mg Take 1 [facility] rine 10 mg 1-10 tablet by ity of tablet 00:00: mouth in [place] the morning Branch and 1 tablet at noon and 1 tablet in the evening. meloxicam 2021-09 Yes [id number] 7.5mg Take 1 [facility] 7.5 mg 1-10 tablet by ity of tablet 00:00: mouth in [place] the morning. Branch cyclobenzap 2021-09 Yes [id number] 10mg Take 1 [facility] rine 10 mg 1-10 tablet by ity of tablet 00:00: mouth in [place] the Medical morning Branch and 1 tablet at noon and 1 tablet in the evening. meloxicam 2021-09 Yes [id number] 7.5mg Take 1 [facility] 7.5 mg 1-10 tablet by ity of tablet 00:00: mouth in [place] the morning. Branch cyclobenzap 2021-09 Yes [id number] 10mg Take 1 [facility] rine 10 mg 1-10 tablet by ity of tablet 00:00: mouth in [place] the Medical morning Branch and 1 tablet at noon and 1 tablet in the evening. meloxicam 2021-09 Yes [id number] 7.5mg Take 1 [facility] 7.5 mg 1-10 tablet by ity of tablet 00:00: mouth in [place] the morning. Branch cyclobenzap 2021-09 Yes [id number] 10mg Take 1 [facility] rine 10 mg 1-10 tablet by ity of tablet 00:00: mouth in [place] the Medical morning Branch and 1 tablet at noon and 1 tablet in the evening. meloxicam 2021-09 Yes [id number] 7.5mg Take 1 [facility] 7.5 mg 1-10 tablet by ity of tablet 00:00: mouth in [place] the morning. Branch cyclobenzap 2021-09 Yes [id number] 10mg Take 1 [facility] rine 10 mg 1-10 tablet by ity of tablet 00:00: mouth in [place] the Medical morning Branch and 1 tablet at noon and 1 tablet in the evening. meloxicam 2021-09 Yes [id number] 7.5mg Take 1 [facility] 7.5 mg 1-10 tablet by ity of tablet 00:00: mouth in [place] the morning. Branch cyclobenzap 2021-09 Yes [id number] 10mg Take 1 [facility] rine 10 mg 1-10 tablet by ity of tablet 00:00: mouth in [place] the Medical morning Branch and 1 tablet at noon and 1 tablet in the evening. meloxicam 2021-09 Yes [id number] 7.5mg Take 1 [facility] 7.5 mg 1-10 tablet by ity of tablet 00:00: mouth in [place] the morning. Branch cyclobenzap 2021-09 Yes [id number] 10mg Take 1 [facility] rine 10 mg 1-10 tablet by ity of tablet 00:00: mouth in [place] the Medical morning Branch and 1 tablet at noon and 1 tablet in the evening. meloxicam 2021-09 Yes [id number] 7.5mg Take 1 [facility] 7.5 mg 1-10 tablet by ity of tablet 00:00: mouth in [place] the morning. Branch cyclobenzap 2021-09 Yes [id number] 10mg Take 1 [facility] rine 10 mg 1-10 tablet by ity of tablet 00:00: mouth in [place] the Medical morning Branch and 1 tablet at noon and 1 tablet in the evening. meloxicam 2021-09 Yes [id number] 7.5mg Take 1 [facility] 7.5 mg 1-10 tablet by ity of tablet 00:00: mouth in [place] the morning. Branch cyclobenzap 2021-09 Yes [id number] 10mg Take 1 [facility] rine 10 mg 1-10 tablet by ity of tablet 00:00: mouth in [place] the Medical morning Branch and 1 tablet at noon and 1 tablet in the evening. cyclobenzap 2021-09 Yes [id number] 10mg Take 1 [facility] rine 10 mg 1-10 tablet by ity of tablet 00:00: mouth in [place] 00 the Medical morning Branch and 1 tablet at noon and 1 tablet in the evening. cyclobenzap 2021-09 Yes [id number] 10mg Take 1 [facility] rine 10 mg 1-10 tablet by ity of tablet 00:00: mouth in [place] 00 the [facility] morning Branch and 1 tablet at noon and 1 tablet in the evening. cyclobenzap 2021-09 Yes [id number] 10mg Take 1 [facility] rine 10 mg 1-10 tablet by ity of tablet 00:00: mouth in [place] 00 the [facility] morning Branch and 1 tablet at noon and 1 tablet in the evening. cyclobenzap 2021-09 Yes [id number] 10mg Take 1 [facility] rine 10 mg 1-10 tablet by ity of tablet 00:00: mouth in [place] [address] the [facility] morning Branch and 1 tablet at noon and 1 tablet in the evening. cyclobenzap 2021-09 Yes [id number] 10mg Take 1 [facility] rine 10 mg 1-10 tablet by ity of tablet 00:00: mouth in [place] 00 the [facility] morning Branch and 1 tablet at noon and 1 tablet in the evening. cyclobenzap 2021-09 Yes [id number] 10mg Take 1 [facility] rine 10 mg 1-10 tablet by ity of tablet 00:00: mouth in [place] [address] the [facility] morning Branch and 1 tablet at noon and 1 tablet in the evening. meloxicam 2021-09 Yes [id number] 7.5mg Take 1 [facility] 7.5 mg 1-10 tablet by ity of tablet 00:00: mouth in [place] [address] the [facility]. Branch cyclobenzap 2021-09 Yes [id number] 10mg Take 1 [facility] rine 10 mg 1-10 tablet by ity of tablet 00:00: mouth in [place] 00 the [facility] morning Branch and 1 tablet at noon and 1 tablet in the evening. cyclobenzap 2021-09- No [id number] 10mg Take 1 [facility] rine 10 mg 1-10 01-05 tablet by ity of tablet 00:00: 00:00 mouth in [place] 00 :00 the [facility] morning Branch and 1 tablet at noon and 1 tablet in the evening. cyclobenzap 2021-09- No [id number] 10mg Take 1 [facility] rine 10 mg 1-10 -05 tablet by ity of tablet 00:00: 00:00 mouth in [place] 00 :00 the Medical morning Branch and 1 tablet at noon and 1 tablet in the evening. meloxicam 2021-09- No [id number] 7.5mg Take 1 [facility] 7.5 mg 1-10 12-15 tablet by ity of tablet 00:00: 00:00 mouth in [place] 00 :00 the Medical morning. Branch meloxicam 2021-09- No [id number] 7.5mg Take 1 [facility] 7.5 mg 1-10 12-15 tablet by ity of tablet 00:00: 00:00 mouth in [place] 00 :00 the Medical morning. Branch meloxicam 2021-09- No [id number] 7.5mg Take 1 [facility] 7.5 mg 1-10 12-15 tablet by ity of tablet 00:00: 00:00 mouth in [place] 00 :00 the Medical morning. Branch mupirocin 2 2021-0 Yes [id number] Apply to [facility] % ointment 1-19 [id number] area(s) 3 it y of 00:00: (three) [place] 00 times Medical daily. Branch mupirocin 2 2021-0 Yes [id number] Apply to [facility] % ointment 1-19 [id number] area(s) 3 it y of 00:00: (three) [place] 00 times Medical daily. Branch mupirocin 2 2021-0 Yes [id number] Apply to [facility] % ointment 1-19 [id number] area(s) 3 it y of 00:00: (three) [place] 00 times Medical daily. Branch mupirocin 2 2021-0 Yes [id number] Apply to Univers % ointment 1-19 [id number] area(s) 3 it y of 00:00: (three) [place] 00 times Medical daily. Branch mupirocin 2 2021-0 Yes [id number] Apply to [facility] % ointment 1-19 [id number] area(s) 3 it y of 00:00: (three) [place] 00 times Medical daily. Branch mupirocin 2 2021-0 Yes [id number] Apply to [facility] % ointment 1-19 [id number] area(s) 3 it y of 00:00: (three) [place] 00 times Medical daily. Branch mupirocin 2 2021-0 Yes [id number] Apply to Univers % ointment 1-19 [id number] area(s) 3 it y of 00:00: (three) [place] 00 times Medical daily. Branch mupirocin 2 2021-0 Yes [id number] Apply to Univers % ointment 1-19 [id number] area(s) 3 it y of 00:00: (three) [place] 00 times Medical daily. Branch mupirocin 2 2021-0 Yes [id number] Apply to Univers % ointment 1-19 [id number] area(s) 3 it y of 00:00: (three) [place] 00 times Medical daily. Branch mupirocin 2 2021-0 Yes [id number] Apply to Univers % ointment 1-19 [id number] area(s) 3 it y of 00:00: (three) [place] 00 times Medical daily. Branch mupirocin 2 2021-0 Yes [id number] Apply to [facility] % ointment 1-19 [id number] area(s) 3 it y of 00:00: (three) [place] 00 times Medical daily. Branch mupirocin 2 2021-0 Yes [id number] Apply to Univers % ointment 1-19 [id number] area(s) 3 it y of 00:00: (three) [place] 00 times Medical daily. Branch mupirocin 2 2021-0 Yes [id number] Apply to [facility] % ointment 1-19 [id number] area(s) 3 it y of 00:00: (three) [place] 00 times Medical daily. Branch mupirocin 2 2021-0 Yes [id number] Apply to [facility] % ointment 1-19 [id number] area(s) 3 it y of 00:00: (three) [place] 00 times Medical daily. Branch mupirocin 2 2021-0 Yes [id number] Apply to [facility] % ointment 1-19 [id number] area(s) 3 it y of 00:00: (three) [place] 00 times Medical daily. Branch mupirocin 2 2-0 Yes [id number] Apply to Univers % ointment 1-19 [id number] area(s) 3 it y of 00:00: (three) [place] 00 times Medical daily. Branch mupirocin 2 2021-0 Yes [id number] Apply to [facility] % ointment 1-19 [id number] area(s) 3 it y of 00:00: (three) [place] 00 times Medical daily. Branch mupirocin 2 2021-0 Yes [id number] Apply to [facility] % ointment 1-19 [id number] area(s) 3 it y of 00:00: (three) [place] 00 times Medical daily. Branch mupirocin 2 2021-0 Yes [id number] Apply to [facility] % ointment 1-19 [id number] area(s) 3 it y of 00:00: (three) [place] 00 times Medical daily. Branch mupirocin 2 2021-0 Yes [id number] Apply to Univers % ointment 1-19 [id number] area(s) 3 it y of 00:00: (three) [place] 00 times Medical daily. Branch mupirocin 2 2021-0 Yes [id number] Apply to Univers % ointment 1-19 [id number] area(s) 3 it y of 00:00: (three) [place] 00 times Medical daily. Branch mupirocin 2 2021-0 Yes [id number] Apply to Univers % ointment 1-19 [id number] area(s) 3 it y of 00:00: (three) [place] 00 times Medical daily. Branch mupirocin 2 2021-0 Yes [id number] Apply to [facility] % ointment 1-19 [id number] area(s) 3 it y of 00:00: (three) [place] 00 times Medical daily. Branch mupirocin 2 2021-0 Yes [id number] Apply to [facility] % ointment 1-19 [id number] area(s) 3 it y of 00:00: (three) [place] 00 times Medical daily. Branch mupirocin 2 2021-0 2022- No [id number] Apply to [facility] % ointment 1-19 04-11 [id number] area(s) 3 i ty of 00:00: 00:00 (three) [place] 00 :00 times Medical daily. Branch mupirocin 2 2021-0 3- No [id number] Apply to Univers % ointment 1-19 04-11 [id number] area(s) 3 i ty of 00:00: 00:00 (three) [place] 00 :00 times Medical daily. Branch mupirocin 2 20212022- No [id number] Apply to [facility] % ointment 10-05 [id number] area(s) 3 i ty of 00:00: 00:00 (three) [place] 00 :00 times Medical daily. Branch traMADoL 50 No [id number] 50mg Take 1 [facility] vers mg tablet 10-05 tablet by ity of 00:00: 05:59 mouth [place] 00 :00 every 6 Medical (six) Branch hours as needed for Pain (scale 4-6) for up to 7 days. Indication s: acute pain HYDROcodone [place] [id number] 1{tbl} Take 1 U nivers -acetaminop 10-03 tablet by it y of hen 5-325 00:00: 05:59 mouth [place] mg tablet 00 :00 every 4 Medical (four) Branch hours as needed for Pain (scale 4-6) for up to 7 days. Indication s: acute pain sulfamethox 2021- No [id number] 1{tbl} Take 1 [facility] azole-trime 10-02 tablet [...] [facility] Immunizations Ordered Filled Date Status Comments Source Immunization Name Immunization Name TDAP 2021-10-02 Completed [facility] 00:00:00 [facility] TDAP 2021-10-02 Completed [facility] of 00:00:00 [facility] TDAP 2021-10-02 Completed [facility] of 00:00:00 [facility] TDAP 2021-10-02 Completed [facility] of 00:00:00 [facility] TDAP 2021-10-02 Completed University of 00:00:00 [facility] TDAP 2021-10-02 Completed University of 00:00:00 [facility] TDAP 2021-10-02 Completed University of 00:00:00 [facility] TDAP 2021-10-02 Completed University of 00:00:00 [facility] TDAP 2021-10-02 Completed University of 00:00:00 [facility] TDAP 2021-10-02 Completed University of 00:00:00 [facility] TDAP 2021-10-02 Completed University of 00:00:00 [facility] TDAP 2021-10-02 Completed University of 00:00:00 [facility] TDAP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
[2023-06-21] MEDS ORDERED: HYDROCODONE/CHLORPHEN 5 ML/OSYR ONE (18:25)
[2023-06-21] MEDS ORDERED: levoFLOXacin 250 MG TAB ONE (18:25)
[2023-06-21] MEDS ORDERED: METFORMIN HCL 500 MG TAB ONE (18:26)
[2023-06-21] MEDS ORDERED: SMZ./TMP. 800/160 MG TABLET ONE (18:26)
--- NOTE | 2023-06-21 18:47 | RAD REPORT ---
EXAM DESCRIPTION: RAD - Chest Single View - 06/21/2023 6:08 pm CLINICAL HISTORY: COUGH Chest pain. COMPARISON: Chest Single View dated 12/18/2017 FINDINGS: Portable technique limits examination quality. The lungs are grossly clear. The heart is moderately prominent in size. No displaced fractures. IMPRESSION: No acute intrathoracic process suspected.
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
--- NOTE | 2023-06-21 18:50 | EDPHYS ---
Physician Documentation [facility] Name: Kenny Fallon Age: 37 yrs Sex: Male : 1985 Arrival Date: 06/21/2023 Time: 16:56 Bed 16 Private MD: ED Physician Papa Leo HPI: 06/21 17:58 This 37 yrs old Male presents to ER via Ambulatory with complaints of Cough, Boil. sb4 18:55 Patient comes in with multiple complaints. He states that he has some sort of skin sb4 infection under his abdominal fold in his right groin region. He states he also has one in his left axilla and his nape. He states that they are all draining a milky white fluid. He has history of diabetes, hypertension, and hyperlipidemia in which she is not on any medication for due to insurance reasons. Additionally, he reports a cough because he states that he fell asleep in front of the air conditioning and wants to ensure he does not have pneumonia. Historical: - Allergies: 17:21 No Known Allergies; ld1 - PMHx: 17:21 diabetes mellitus; Hyperlipidemia; Hypertension; ld1 - PSHx: 17:21 Cholecystectomy; ld1 - Immunization history:: Adult Immunizations up to date. - Social history:: Smoking status: Patient reports the use of cigarette tobacco products, smokes one pack cigarettes per day. Patient/guardian denies using alcohol. ROS: 18:55 Constitutional: Negative for fever, chills, and weight loss, sb4 18:55 Respiratory: Positive for cough, 18:55 Skin: Positive for abscess, 18:55 All other systems are negative, Exam: 18:55 Head/Face: Normocephalic, atraumatic. Eyes: Extra-ocular motions intact. Periorbital sb4 areas with no swelling, redness, or edema. ENT: Mucous membranes moist. MS/ Extremity: Pulses equal, no cyanosis. Neurovascular intact. Full, normal range of motion. 18:55 Constitutional: The patient appears in no acute distress, alert, awake, obese, 18:55 Abdomen/GI: Inspection: obese 18:55 Skin: Small draining abscess right inguinal fold, small abscess left axilla not draining but erythematous, draining abscess nape. Vital Signs: 17:18 BP 156 / 109; Pulse 107; Resp 20; Temp 98.1(O); Pulse Ox 92% on R/A; Weight 158.76 kg; ld1 Height 6 ft. 0 in. ; Pain 6/10; 18:30 BP 193 / 92; Pulse 91; Resp 16; Pulse Ox 93% on R/A; db 19:16 BP 175 / 92; Pulse 91; Resp 18 S; Pulse Ox 94% on R/A; ha1 17:18 Body Mass Index 47.47 (158.76 kg, 182.88 cm) ld1 17:18 Pain Scale: Adult ld1 18:30 sleeping db MDM: 17:05 Patient medically screened. sb4 18:55 Differential diagnosis: Hidradenitis suppurativa, hyperglycemia, abscess, cellulitis, sb4 pneumonia. Data reviewed: vital signs, nurses notes, radiologic studies, and as a result, I will discharge patient. Care significantly affected by the following chronic conditions: Diabetes, Hypertension, Obesity. Care significantly affected by the following Social Determinants of Health: Poor access to healthcare and/or lack of insurance. Counseling: I had a detailed discussion with the patient and/or guardian regarding the historical points, exam findings, and any diagnostic results supporting the discharge/admit diagnosis, the presence of at least one elevated blood pressure reading (>120/80) during this emergency department visit, lab results, radiology results, the need for outpatient follow up, for definitive care, to return to the emergency department if symptoms worsen or persist or if there are any questions or concerns that arise at home, smoking cessation. Special discussion: I discussed in detail with the patient the higher chance of wound infection based on his presenting history. 19:01 Independent interpretation of the following test(s) in the Emergency Department X-Ray: sb4 My interpretation is My interpretation of the chest x-ray images is no acute consolidation. 06/21 17:57 Order name: Glucose, Ancillary Testing; Complete Time: 17:58 EDMS 06/21 17:51 Order name: Chest Single View XRAY; Complete Time: 18:49 sb4 06/21 17:24 Order name: Accucheck; Complete Time: 17:45 sb4 Administered Medications: 18:10 Drug: Trimethoprim-Sulfamethoxazole PO (160 mg-800 mg (DS) 1 tablet PO once Route: PO; db 18:10 Drug: LevOfloxacin PO 500 mg PO once Route: PO; db 18:10 Drug: metFORMIN PO 1000 mg PO once; with meal or snack Route: PO; db 18:10 Drug: Tussionex Pennkinetic ER PO Suspension 5 ml PO once Route: PO; db 18:42 Drug: Lisinopril PO 20 mg PO once Route: PO; db Point of Care Testing: Blood Glucose: 17:45 Blood Glucose: 394 mg/dL; db Ranges: Critical Glucose Levels:Adult <50 mg/dl or >400 mg/dl <40 mg/dl or >180 mg/dl Disposition Summary: 06/21/23 18:50 Discharge Ordered Notes: Location: Home sb4 Problem: an ongoing problem sb4 Symptoms: are unchanged sb4 Condition: Stable sb4 Diagnosis - Hidradenitis suppurativa sb4 - Type 2 diabetes mellitus with hyperglycemia sb4 - Essential (primary) hypertension sb4 - Morbid (severe) obesity due to excess calories sb4 Followup: sb4 - With: Private Physician - When: As needed - Reason: Recheck today's complaints, Continuance of care, Re-evaluation by your physician Discharge Instructions: - Discharge Summary Sheet sb4 - Hidradenitis Suppurativa sb4 - Hypertension, Adult sb4 - Diabetes Mellitus and Nutrition, Adult sb4 Forms: - Medication Reconciliation Form sb4 - Thank You Letter sb4 - Antibiotic Education sb4 - Prescription Opioid Use sb4 - Patient Portal Instructions sb4 - Leadership Thank You Letter sb4 Prescriptions: - gabapentin 300 mg Oral capsule - take 1 capsule ORAL route 3 times per day; 15 capsule; Refills: 0, Product sb4 Selection Permitted - Tessalon Perles 100 mg Oral Capsule - take 1 capsule ORAL route every 8 hours As needed; 15 capsule; Refills: 0, sb4 Product Selection Permitted - Lisinopril 10 mg Oral Tablet - take 1 tablet ORAL route once daily; 20 tablet; Refills: 0, Product Selection sb4 Permitted - Metformin 500 mg Oral Tablet Sustained Release 24 hr - take 1 tablet ORAL route once daily with evening meal; 20 tablet; Refills: 0, sb4 Product Selection Permitted - Bactrim DS 800-160 mg Oral Tablet - take 1 tablet ORAL route every 12 hours for 7 days; 14 tablet; Refills: 0, sb4 Product Selection Permitted - levofloxacin 500 mg Oral tablet - take 1 tablet ORAL route once daily for 7 days; 7 tablet; Refills: 0, Product sb4 Selection Permitted Signatures: Dispatcher [employer] EDTeresa Rico RN RN ld1 Joana Pierre RN RN db Miguelina Lee PA-C PA-C sb4 Corrections: (The following items were deleted from the chart) 17:24 17:22 [facility] [place]. Order ordered. sb4 sb4
[2023-06-21] MEDS ORDERED: lisinopriL 20 MG TAB ONE (18:52)
[2023-06-21 20:47] VITALS: TEMP 98.1
[2023-06-21 20:49] VITALS: BP 175/92; O2SAT 94
== END 2023-06-21 19:19 | disposition home or self-care (01) ==
LOC: ER 16:56
DX: L73.2 Hidradenitis suppurativa (principal); E11.65 Type 2 diabetes mellitus with hyperglycemia; I10 Essential (primary) hypertension; R05.9 Cough, unspecified; E66.01 Morbid (severe) obesity due to excess calories; Z68.42 Body mass index [BMI] 45.0-49.9, adult; F17.210 Nicotine dependence, cigarettes, uncomplicated
CPT/HCPCS: 71045; 82947; 99283

== ENCOUNTER 2023-07-12 13:21 | Emergency (ER) | payer OTHER ==
--- OUTSIDE RECORDS SUMMARY | 2023-07-12 13:27 | XMS REPORT | Continuity of Care Document ---
:1985 Author Organization [facility] t Address [address] [facility] [place] [address] Care Team Providers Name Role Phone Asked, No Pcp Primary Care Physician Unavailable JESUS MIRZA Attending Clinician Unavailable CLAUDIA MCDOWELL Attending Clinician Unavailable CLAUDIA MCDOWELL Attending Clinician Unavailable Doctor Unassigned, Rudy Attending Clinician Unavailable Elda Pathak MD Attending Clinician ELDA PATHAK Attending Clinician Unavailable , [facility] Attending Clinician Unavailable Claudia Mcdowell MD Attending Clinician RADHA JORDAN Attending Clinician Unavailable Radha Luna Attending Clinician [facility] Sleep Attending Clinician Venkatesh Powell Attending Clinician Unavailable Neris Manrique Attending Clinician NERIS TOLLIVER Attending Clinician Unavailable PAUL TAVERAS Attending Clinician Unavailable Paul Taveras MD Attending Clinician Physician, No Primary or Family Admitting Clinician Unavaila PAUL Dawkins Admitting Clinician Unavailable Payers Payer Name Policy Type Policy Number Effective Date Expiration Date Ava PALACIO MP [employer] 9 [id number] 2023 2: 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 [id number] 2022 00:00:00 COMMERCIAL [id number] 2017 NON-CONTRACT 00:00:00 GENERIC Problems Condition Condition [...] rs impaired impaired 1-10 ity of 00:00: [place] [facility] Snoring Snoring Disease Active 2021-09 Univers 1-10 ity of 00:00: [place] [address] Medical Branch Chronic Chronic Disease Active 2021-09 Univers midline midline 1-10 ity of low back low back 00:00: [place] pain pain 00 Medical without without Branch sciatica sciatica No known No known Disease Unive rs active active ity of problems problems [facility] Allergies, Adverse Reactions, Alerts Allergy Allergy Status Severity Reaction(s) Onset Inactive Treating Comm ents Source Name Type Date Date Clinician No Known DA Active [facility] 05[facility]20 [place] [facility] No Known DA Active [facility] 6-11 [place] [facility] NO KNOWN Drug Active Univers ALLERGIE Class ity of S [facility] Social History Social Habit Start Date Stop Date Quantity Comments Source History SDOH [facility] Alcohol Std Drinks Hospit al History SDOH [facility] Gender identity Universit y of [facility] History of tobacco Smokes tobacco Un iversity of use daily [facility] Sexual orientation Method [facility] Hospital Exposure to 2023-02-04 2023-02-14 Not sure [facility] SARS-CoV-2 (event) 00:00:00 04:02:00 [facility] Tobacco use and 2021-10-05 2021-10-05 Smokeless Universit y of exposure 00:00:00 00:00:00 tobacco non-user [facility] History of Social 2019-05-10 2019-05-[address] function 00:00:00 00:00:00 Hospital History SDOH 2019-04-17 2019-04-17 1 [facility] Alcohol Frequency 00:00:00 00:00:00 [facility]osp[facility] Cigarettes smoked 2019-04-17 2019-04-[address] current (pack per 00:00:00 00:00:00 Hospita l day) - Reported Alcohol intake 2019-04-17 2019-04-17 Lifetime [facility] 00:00:00 00:00:00 non-drinker Hospital (finding) Sex Ass[birth year] At [birth year] [facility] 00:00:00 00:00:00 Hospital Smoking Status Start Date Stop Date Source Smokes tobacco daily 2021-10-05 00:00:00 [facility] Medications Ordered Filled Start Stop Current Ordering Indication Dosage Frequency Signature Comments Components Source Medication Medication Date Date Medication? Clinician (SIG) Name Name atorvastati Yes [id number] 40mg Take 1 Univers n 40 mg 7-13 tablet by ity of tablet 00:00: mouth at [place] 00 bedtime. Medical Branch metformin Yes [id number] 500mg Take 1 Univers ER 500 mg 7-13 tablet by ity o f 24 hr 00:00: mouth [place] tablet 00 daily with Medical breakfast. Branch cyclobenzap Yes [id number] 10mg Take 1 Univers rine 10 mg 7-13 tablet by ity of tablet 00:00: mouth in [place] 00 the Medical morning Branch and 1 tablet at noon and 1 tablet in the evening. gabapentin 3-0 Yes [id number] 300mg Take 1 Univers 300 mg 7-13 capsule by ity of capsule 00:00: mouth in [place] 00 the Medical morning Branch and 1 capsule at noon and 1 capsule in the evening. atorvastati 3-0 Yes [id number] 40mg Take 1 Univers n 40 mg 7-13 tablet by ity of tablet 00:00: mouth at [place] 00 bedtime. Medical Branch metformin 2022-0 Yes [id number] 500mg Take 1 Univers ER 500 mg 7-13 tablet by ity o f 24 hr 00:00: mouth [place] tablet 00 daily with Medical breakfast. Branch cyclobenzap 2022-0 Yes [id number] 10mg Take 1 Univers rine 10 mg 7-13 tablet by ity of tablet 00:00: mouth in [place] 00 the Medical morning Branch and 1 tablet at noon and 1 tablet in the evening. gabapentin 2022-0 Yes [id number] 300mg Take 1 Univers 300 mg 7-13 capsule by ity of capsule 00:00: mouth in [place] 00 the Medical morning Branch and 1 capsule at noon and 1 capsule in the evening. MOUNJARO 5 2022-0 Yes [id number] 5mg INJECT 5 Univers mg/0.5 mL 6-27 MG UNDER ity of PnIj 00:00: THE SKIN [place] 00 WEEKLY. Medical Branch MOUNJARO 5 2022-0 Yes [id number] 5mg INJECT 5 Univers mg/0.5 mL 6-27 MG UNDER ity of PnIj 00:00: THE SKIN [place] 00 WEEKLY. Medical Branch MOUNJARO 5 2022-0 Yes [id number] 5mg INJECT 5 Univers mg/0.5 mL 6-27 MG UNDER ity of PnIj 00:00: THE SKIN [place] 00 WEEKLY. Medical Branch cyclobenzap 2022-0 Yes [id number] 10mg Take 1 Univers rine 10 mg 4-11 tablet by ity of tablet 00:00: mouth in [place] 00 the Medical morning Branch and 1 tablet at noon and 1 tablet in the evening. gabapentin 2023-0 Yes [id number] 300mg Take 1 Univers 300 mg 4-11 capsule by ity of capsule 00:00: mouth in [place] 00 the Medical morning Branch and 1 capsule at noon and 1 capsule in the evening. meloxicam 2023-0 Yes [id number] 7.5mg Take 1 Univers 7.5 mg 4-11 tablet by ity of tablet 00:00: mouth [place] 00 every Medical morning. Branch tirzepatide 3-0 Yes [id number] 5mg inject 5 Univers (MOUNJARO) 4-11 mg under ity o f 5 mg/0.5 mL 00:00: the skin [place] PnIj 00 weekly. Medical Branch cyclobenzap 3-0 Yes [id number] 10mg Take 1 Univers rine 10 mg 4-11 tablet by ity of tablet 00:00: mouth in [place] 00 the Medical morning Branch and 1 tablet at noon and 1 tablet in the evening. gabapentin 3-0 Yes [id number] 300mg Take 1 Univers 300 mg 4-11 capsule by ity of capsule 00:00: mouth in [place] 00 the Medical morning Branch and 1 capsule at noon and 1 capsule in the evening. meloxicam 2023-0 Yes [id number] 7.5mg Take 1 Univers 7.5 mg 4-11 tablet by ity of tablet 00:00: mouth [place] 00 every Medical morning. Branch tirzepatide 3-0 Yes [id number] 5mg inject 5 Univers (MOUNJARO) 4-11 mg under ity o f 5 mg/0.5 mL 00:00: the skin [place] PnIj 00 weekly. Medical Branch cyclobenzap 3-0 Yes [id number] 10mg Take 1 Univers rine 10 mg 4-11 tablet by ity of tablet 00:00: mouth in [place] 00 the Medical morning Branch and 1 tablet at noon and 1 tablet in the evening. gabapentin 2023-0 Yes [id number] 300mg Take 1 Univers 300 mg 4-11 capsule by ity of capsule 00:00: mouth in [place] 00 the Medical morning Branch and 1 capsule at noon and 1 capsule in the evening. meloxicam 2023-0 Yes [id number] 7.5mg Take 1 Univers 7.5 mg 4-11 tablet by ity of tablet 00:00: mouth [place] 00 every Medical morning. Branch tirzepatide 2023-0 Yes [id number] 5mg inject 5 Univers (MOUNJARO) 4-11 mg under ity o f 5 mg/0.5 mL 00:00: the skin [place] PnIj 00 weekly. Medical Branch cyclobenzap 2023-0 Yes [id number] 10mg Take 1 Univers rine 10 mg 4-11 tablet by ity of tablet 00:00: mouth in [place] 00 the Medical morning Branch and 1 tablet at noon and 1 tablet in the evening. gabapentin 3-0 Yes [id number] 300mg Take 1 Univers 300 mg 4-11 capsule by ity of capsule 00:00: mouth in [place] 00 the Medical morning Branch and 1 capsule at noon and 1 capsule in the evening. meloxicam 2023-0 Yes [id number] 7.5mg Take 1 Univers 7.5 mg 4-11 tablet by ity of tablet 00:00: mouth [place] 00 every Medical morning. Branch tirzepatide 2022-0 Yes [id number] 5mg inject 5 Univers (MOUNJARO) 4-11 mg under ity o f 5 mg/0.5 mL 00:00: the skin [place] PnIj 00 weekly. Medical Branch cyclobenzap 2022-0 Yes [id number] 10mg Take 1 Univers rine 10 mg 4-11 tablet by ity of tablet 00:00: mouth in [place] 00 the Medical morning Branch and 1 tablet at noon and 1 tablet in the evening. gabapentin 3-0 Yes [id number] 300mg Take 1 Univers 300 mg 4-11 capsule by ity of capsule 00:00: mouth in [place] 00 the Medical morning Branch and 1 capsule at noon and 1 capsule in the evening. meloxicam 2023-0 Yes [id number] 7.5mg Take 1 Univers 7.5 mg 4-11 tablet by ity of tablet 00:00: mouth [place] 00 every Medical morning. Branch tirzepatide 3-0 Yes [id number] 5mg inject 5 Univers (MOUNJARO) 4-11 mg under ity o f 5 mg/0.5 mL 00:00: the skin [place] PnIj 00 weekly. Medical Branch cyclobenzap 3-0 Yes [id number] 10mg Take 1 Univers rine 10 mg 4-11 tablet by ity of tablet 00:00: mouth in [place] 00 the Medical morning Branch and 1 tablet at noon and 1 tablet in the evening. gabapentin 2023-0 Yes [id number] 300mg Take 1 Univers 300 mg 4-11 capsule by ity of capsule 00:00: mouth in [place] 00 the Medical morning Branch and 1 capsule at noon and 1 capsule in the evening. meloxicam 2023-0 Yes [id number] 7.5mg Take 1 Univers 7.5 mg 4-11 tablet by ity of tablet 00:00: mouth [place] 00 every Medical morning. Branch tirzepatide 3-0 Yes [id number] 5mg inject 5 Univers (MOUNJARO) 4-11 mg under ity o f 5 mg/0.5 mL 00:00: the skin [place] PnIj 00 weekly. [facility] Branch cyclobenzap 3-0 Yes [id number] 10mg Take 1 Univers rine 10 mg 4-11 tablet by ity of tablet 00:00: mouth in [place] 00 the Medical morning Branch and 1 tablet at noon and 1 tablet in the evening. gabapentin 3-0 Yes [id number] 300mg Take 1 Univers 300 mg 4-11 capsule by ity of capsule 00:00: mouth in [place] 00 the Medical morning Branch and 1 capsule at noon and 1 capsule in the evening. meloxicam 2023-0 Yes [id number] 7.5mg Take 1 Univers 7.5 mg 4-11 tablet by ity of tablet 00:00: mouth [place] 00 every Medical morning. Branch tirzepatide 3-0 Yes [id number] 5mg inject 5 Univers (MOUNJARO) 4-11 mg under ity o f 5 mg/0.5 mL 00:00: the skin [place] PnIj 00 weekly. Medical Branch cyclobenzap 2023-0 Yes [id number] 10mg Take 1 Univers rine 10 mg 4-11 tablet by ity of tablet 00:00: mouth in [place] 00 the Medical morning Branch and 1 tablet at noon and 1 tablet in the evening. gabapentin 2023-0 Yes [id number] 300mg Take 1 Univers 300 mg 4-11 capsule by ity of capsule 00:00: mouth in [place] 00 the Medical morning Branch and 1 capsule at noon and 1 capsule in the evening. meloxicam 2023-0 Yes [id number] 7.5mg Take 1 Univers 7.5 mg 4-11 tablet by ity of tablet 00:00: mouth [place] 00 every Medical morning. Branch meloxicam 0 Yes [id number] 7.5mg Take 1 Univers 7.5 mg 4-11 tablet by ity of tablet 00:00: mouth [place] 00 every Medical morning. Branch meloxicam 0 Yes [id number] 7.5mg Take 1 Univers 7.5 mg 4-11 tablet by ity of tablet 00:00: mouth [place] 00 every Medical morning. Branch cyclobenzap 0 2022- No [id number] 10mg Take 1 Univers rine 10 mg 4-11 07-12 tablet by ity of tablet 00:00: 00:00 mouth in [place] 00 :00 the Medical morning Branch and 1 tablet at noon and 1 tablet in the evening. gabapentin 2022-0 2022- No [id number] 300mg Take 1 Univers 300 mg 4-11 07-12 capsule by ity of capsule 00:00: 00:00 mouth in [place] 00 :00 the Medical morning Branch and 1 capsule at noon and 1 capsule in the evening. tirzepatide 2022- No [id number] 5mg inject 5 Univers (MOUNJARO) 4-11 06-27 mg under ity of 5 mg/0.5 mL 00:00: 00:00 the skin [place] PnIj 00 :00 weekly. Medical Branch fluticasone Yes [id number] 1{spray Use 1 Univers propionate 2-16 } [place] in ity o f 50 00:00: each [place] mcg/actuati 00 nostril in Me dical on nasal the Branch spray morning and 1 [place] in the evening. gabapentin 0 Yes [id number] 300mg Take 1 Univers 300 mg 2-16 capsule by ity of capsule 00:00: mouth in [place] 00 the Medical morning Branch and 1 capsule at noon and 1 capsule in the evening. cyclobenzap 2022-0 Yes [id number] 10mg Take 1 Univers rine 10 mg 2-16 tablet by ity of tablet 00:00: mouth in [place] 00 the Medical morning Branch and 1 tablet at noon and 1 tablet in the evening. meloxicam 2022-0 Yes [id number] 7.5mg Take 1 Univers 7.5 mg 2-16 tablet by ity of tablet 00:00: mouth [place] 00 every Medical morning. Branch dulaglutide 2023-0 Yes [id number] 1.5mg inject 1 Univers (TRULICITY) 2-16 Pen under ity of 1.5 mg/0.5 00:00: the skin [place] mL PnIj 00 weekly. Medical Branch fluticasone 3-0 Yes [id number] 1{spray Use 1 Univers propionate 2-16 } [place] in ity o f 50 00:00: each [place] mcg/actuati 00 nostril in Me dical on nasal the Branch spray morning and 1 [place] in the evening. gabapentin 3-0 Yes [id number] 300mg Take 1 Univers 300 mg 2-16 capsule by ity of capsule 00:00: mouth in [place] 00 the Medical morning Branch and 1 capsule at noon and 1 capsule in the evening. cyclobenzap 2023-0 Yes [id number] 10mg Take 1 Univers rine 10 mg 2-16 tablet by ity of tablet 00:00: mouth in [place] 00 the Medical morning Branch and 1 tablet at noon and 1 tablet in the evening. meloxicam 2023-0 Yes [id number] 7.5mg Take 1 Univers 7.5 mg 2-16 tablet by ity of tablet 00:00: mouth [place] 00 every Medical morning. Branch dulaglutide 3-0 Yes [id number] 1.5mg inject 1 Univers (TRULICITY) 2-16 Pen under ity of 1.5 mg/0.5 00:00: the skin [place] mL PnIj 00 weekly. Medical Branch fluticasone 3-0 Yes [id number] 1{spray Use 1 Univers propionate 2-16 } [place] in ity o f 50 00:00: each [place] mcg/actuati 00 nostril in Me dical on nasal the Branch spray morning and 1 [place] in the evening. gabapentin 3-0 Yes [id number] 300mg Take 1 Univers 300 mg 2-16 capsule by ity of capsule 00:00: mouth in [place] 00 the Medical morning Branch and 1 capsule at noon and 1 capsule in the evening. cyclobenzap 2023-0 Yes [id number] 10mg Take 1 Univers rine 10 mg 2-16 tablet by ity of tablet 00:00: mouth in [place] 00 the Medical morning Branch and 1 tablet at noon and 1 tablet in the evening. meloxicam 2023-0 Yes [id number] 7.5mg Take 1 Univers 7.5 mg 2-16 tablet by ity of tablet 00:00: mouth [place] 00 every Medical morning. Branch dulaglutide Yes [id number] 1.5mg inject 1 Univers (TRULICITY) 2-16 Pen under ity of 1.5 mg/0.5 00:00: the skin [place] mL PnIj 00 weekly. Medical Branch fluticasone Yes [id number] 1{spray Use 1 Univers propionate 2-16 } [place] in ity o f 50 00:00: each [place] mcg/actuati 00 nostril in Me dical on nasal the Branch spray morning and 1 [place] in the evening. fluticasone Yes [id number] 1{spray Use 1 Univers propionate 2-16 } [place] in ity o f 50 00:00: each [place] mcg/actuati 00 nostril in Me dical on nasal the Branch spray morning and 1 [place] in the evening. fluticasone Yes [id number] 1{spray Use 1 Univers propionate 2-16 } [place] in ity o f 50 00:00: each [place] mcg/actuati 00 nostril in Me dical on nasal the Branch spray morning and 1 [place] in the evening. fluticasone Yes [id number] 1{spray Use 1 Univers propionate 2-16 } [place] in ity o f 50 00:00: each [place] mcg/actuati 00 nostril in Me dical on nasal the Branch spray morning and 1 [place] in the evening. fluticasone Yes [id number] 1{spray Use 1 Univers propionate 2-16 } [place] in ity o f 50 00:00: each [place] mcg/actuati 00 nostril in Me dical on nasal the Branch spray morning and 1 [place] in the evening. fluticasone 2022-0 Yes [id number] 1{spray Use 1 Univers propionate 2-16 } [place] in ity o f 50 00:00: each [place] mcg/actuati 00 nostril in Me dical on nasal the Branch spray morning and 1 [place] in the evening. fluticasone 2022-0 Yes [id number] 1{spray Use 1 Univers propionate 2-16 } [place] in ity o f 50 00:00: each [place] mcg/actuati 00 nostril in Me dical on nasal the Branch spray morning and 1 [place] in the evening. fluticasone 2022-0 Yes [id number] 1{spray Use 1 Univers propionate 2-16 } [place] in ity o f 50 00:00: each [place] mcg/actuati 00 nostril in Me dical on nasal the Branch spray morning and 1 [place] in the evening. fluticasone 2022-0 Yes [id number] 1{spray Use 1 Univers propionate 2-16 } [place] in ity o f 50 00:00: each [place] mcg/actuati 00 nostril in Me dical on nasal the Branch spray morning and 1 [place] in the evening. fluticasone 2022-0 Yes [id number] 1{spray Use 1 Univers propionate 2-16 } [place] in ity o f 50 00:00: each [place] mcg/actuati 00 nostril in [place] dical on nasal the Branch spray morning and 1 [place] in the evening. gabapentin 2022-2022- No [id number] 300mg Take 1 Univers 300 mg 2-16 -11 capsule by ity of capsule 00:00: 00:00 mouth in [place] 00 :00 the Medical morning Branch and 1 capsule at noon and 1 capsule in the evening. cyclobenzap 2022-2022- No [id number] 10mg Take 1 Univers rine 10 mg -16 -11 tablet by ity of tablet 00:00: 00:00 mouth in [place] 00 :00 the Medical morning Branch and 1 tablet at noon and 1 tablet in the evening. meloxicam 2022- No [id number] 7.5mg Take 1 Univers 7.5 mg 2-16 -11 tablet by ity of tablet 00:00: 00:00 mouth [place] 00 :00 every Medical morning. Branch dulaglutide 2022-0 2022- No [id number] 1.5mg inject 1 Univers (TRULICITY) 2-16 -11 Pen under it y of 1.5 mg/0.5 00:00: 00:00 the skin [place] mL PnIj 00 :00 weekly. Medical Branch gabapentin 2022-0 2022- No [id number] 300mg Take 1 Univers 300 mg 2-16 -11 capsule by ity of capsule 00:00: 00:00 mouth in [place] 00 :00 the Medical morning Branch and 1 capsule at noon and 1 capsule in the evening. cyclobenzap 2022- No [id number] 10mg Take 1 Univers rine 10 mg 11-02 tablet by ity of tablet 00:00: 00:00 mouth in [place] 00 :00 the Medical morning Branch and 1 tablet at noon and 1 tablet in the evening. meloxicam 2022- No [id number] 7.5mg Take 1 Univers 7.5 mg 11-02 tablet by ity of tablet 00:00: 00:00 mouth [place] 00 :00 every Medical morning. Branch dulaglutide 2022- No [id number] 1.5mg inject 1 Univers (TRULICITY) 11-02 Pen under it y of 1.5 mg/0.5 00:00: 00:00 the skin [place] mL PnIj 00 :00 weekly. Medical Branch atorvastati 2022- Yes [id number] 40mg Take 1 Univers n 40 mg 1-11 tablet by ity of tablet 00:00: mouth at [place] 00 bedtime. Medical Branch metformin 2022-0 Yes [id number] 500mg Take 1 Univers ER 500 mg 1-11 tablet by ity o f 24 hr 00:00: mouth [place] tablet 00 daily with Medical breakfast. Branch atorvastati 2022-0 Yes [id number] 40mg Take 1 Univers n 40 mg 1-11 tablet by ity of tablet 00:00: mouth at [place] 00 bedtime. Medical Branch metformin 2022-0 Yes [id number] 500mg Take 1 Univers ER 500 mg 1-11 tablet by ity o f 24 hr 00:00: mouth [place] tablet 00 daily with Medical breakfast. Branch atorvastati 2022-0 Yes [id number] 40mg Take 1 Univers n 40 mg 1-11 tablet by ity of tablet 00:00: mouth at [place] 00 bedtime. Medical Branch metformin 2022-0 Yes [id number] 500mg Take 1 Univers ER 500 mg 1-11 tablet by ity o f 24 hr 00:00: mouth [place] tablet 00 daily with Medical breakfast. Branch atorvastati 2022- Yes [id number] 40mg Take 1 [facility] n 40 mg 1-11 tablet by ity of tablet 00:00: mouth at [place] 00 bedtime. Medical Branch metformin 2022-0 Yes [id number] 500mg Take 1 [facility] ER 500 mg 1-11 tablet by ity o f 24 hr 00:00: mouth [place] tablet 00 daily with Medical breakfast. Branch atorvastati 2022-0 Yes [id number] 40mg Take 1 [facility] n 40 mg 1-11 tablet by ity of tablet 00:00: mouth at [place] 00 bedtime. Medical Branch metformin 2022-0 Yes [id number] 500mg Take 1 [facility] ER 500 mg 1-11 tablet by ity o f 24 hr 00:00: mouth [place] tablet 00 daily with Medical breakfast. Branch atorvastati 2022-0 Yes [id number] 40mg Take 1 [facility] n 40 mg 1-11 tablet by ity of tablet 00:00: mouth at [place] 00 bedtime. Medical Branch metformin 2022-0 Yes [id number] 500mg Take 1 [facility] ER 500 mg 1-11 tablet by ity o f 24 hr 00:00: mouth [place] tablet 00 daily with Medical breakfast. Branch atorvastati 2022-0 Yes [id number] 40mg Take 1 [facility] n 40 mg 1-11 tablet by ity of tablet 00:00: mouth at [place] 00 bedtime. Medical Branch metformin 2022-0 Yes [id number] 500mg Take 1 [facility] ER 500 mg 1-11 tablet by ity o f 24 hr 00:00: mouth [place] tablet 00 daily with Medical breakfast. Branch atorvastati 2022-0 Yes [id number] 40mg Take 1 [facility] n 40 mg 1-11 tablet by ity of tablet 00:00: mouth at [place] 00 bedtime. Medical Branch metformin 2022-0 Yes [id number] 500mg Take 1 [facility] ER 500 mg 1-11 tablet by ity o f 24 hr 00:00: mouth [place] tablet 00 daily with Medical breakfast. Branch atorvastati 2022-0 Yes [id number] 40mg Take 1 [facility] n 40 mg 1-11 tablet by ity of tablet 00:00: mouth at [place] 00 bedtime. Medical Branch metformin 2022-0 Yes [id number] 500mg Take 1 [facility] ER 500 mg 1-11 tablet by ity o f 24 hr 00:00: mouth [place] tablet 00 daily with Medical breakfast. Branch atorvastati 2022-0 Yes [id number] 40mg Take 1 Univers n 40 mg 1-11 tablet by ity of tablet 00:00: mouth at [place] 00 bedtime. Medical Branch metformin 2022-0 Yes [id number] 500mg Take 1 [facility] ER 500 mg 1-11 tablet by ity o f 24 hr 00:00: mouth [place] tablet 00 daily with Medical breakfast. Branch atorvastati 2022-0 Yes [id number] 40mg Take 1 [facility] n 40 mg 1-11 tablet by ity of tablet 00:00: mouth at [place] 00 bedtime. Medical Branch metformin 2022-0 Yes [id number] 500mg Take 1 [facility] ER 500 mg 1-11 tablet by ity o f 24 hr 00:00: mouth [place] tablet 00 daily with Medical breakfast. Branch atorvastati 0 Yes [id number] 40mg Take 1 Univers n 40 mg 1-11 tablet by ity of tablet 00:00: mouth at [place] 00 bedtime. Medical Branch metformin 2022-0 Yes [id number] 500mg Take 1 [facility] ER 500 mg 1-11 tablet by ity o f 24 hr 00:00: mouth [place] tablet 00 daily with Medical breakfast. Branch atorvastati 0 Yes [id number] 40mg Take 1 [facility] n 40 mg 1-11 tablet by ity of tablet 00:00: mouth at [place] 00 bedtime. Medical Branch metformin 2022-0 Yes [id number] 500mg Take 1 [facility] ER 500 mg 1-11 tablet by ity o f 24 hr 00:00: mouth [place] tablet 00 daily with Medical breakfast. Branch atorvastati 2022-0 2022- No [id number] 40mg Take 1 Univers n 40 mg 1-11 07-12 tablet by ity of tablet 00:00: 00:00 mouth at [place] 00 :00 bedtime. Medical Branch metformin 2022-0 2022- No [id number] 500mg Take 1 Univers ER 500 mg 1-11 07-12 tablet by ity of 24 hr 00:00: 00:00 mouth [place] tablet 00 :00 daily with Medical breakfast. Branch dulaglutide 2022-0 Yes [id number] 1.5mg inject 1 Univers (TRULICITY) 1-10 Pen under ity of 1.5 mg/0.5 00:00: the skin [place] mL PnIj 00 weekly. Medical Branch dulaglutide 2022-0 Yes [id number] 1.5mg inject 1 Univers (TRULICITY) 1-10 Pen under ity of 1.5 mg/0.5 00:00: the skin [place] mL PnIj 00 weekly. Medical Branch dulaglutide 2022- No [id number] 1.5mg inject 1 Univers (TRULICITY) 1-10 02-15 Pen under it y of 1.5 mg/0.5 00:00: 00:00 the skin [place] mL PnIj 00 :00 weekly. Medical Branch cyclobenzap 2022-0 Yes [id number] 10mg Take 1 [facility] rine 10 mg 1-05 tablet by ity of tablet 00:00: mouth in [place] 00 the Medical morning Branch and 1 tablet at noon and 1 tablet in the evening. meloxicam 2022-0 Yes [id number] 7.5mg Take 1 [facility] 7.5 mg 1-05 tablet by ity of tablet 00:00: mouth [place] 00 every Medical morning. Branch cyclobenzap 2022-0 Yes [id number] 10mg Take 1 [facility] rine 10 mg 1-05 tablet by ity of tablet 00:00: mouth in [place] 00 the Medical morning Branch and 1 tablet at noon and 1 tablet in the evening. meloxicam 2022-0 Yes [id number] 7.5mg Take 1 [facility] 7.5 mg 1-05 tablet by ity of tablet 00:00: mouth [place] 00 every Medical morning. Branch cyclobenzap 2022-0 Yes [id number] 10mg Take 1 [facility] rine 10 mg 1-05 tablet by ity of tablet 00:00: mouth in [place] 00 the Medical morning Branch and 1 tablet at noon and 1 tablet in the evening. meloxicam 3-0 Yes [id number] 7.5mg Take 1 [facility] 7.5 mg 1-05 tablet by ity of tablet 00:00: mouth [place] 00 every Medical morning. Branch cyclobenzap 2022-0 2022- No [id number] 10mg Take 1 [facility] rine 10 mg 1-05 02-15 tablet by ity of tablet 00:00: 00:00 mouth in [place] 00 :00 the Medical morning Branch and 1 tablet at noon and 1 tablet in the evening. meloxicam 2022-0 2022- No [id number] 7.5mg Take 1 [facility] 7.5 mg 1-05 02-15 tablet by ity of tablet 00:00: 00:00 mouth [place] 00 :00 every Medical morning. Branch MOUNJARO 5 2021-09 Yes [id number] INJECT 5 [facility] mg/0.5 mL 2-27 MG UNDER ity of PnIj 00:00: THE SKIN [place] 00 WEEKLY. Medical Branch MOUNJARO 5 2021-09 Yes [id number] INJECT 5 [facility] mg/0.5 mL 2-27 MG UNDER ity of PnIj 00:00: THE SKIN [place] 00 WEEKLY. Medical Branch MOUNJARO 5 2021-09- No [id number] INJECT 5 [facility] mg/0.5 mL 2-27 01-10 MG UNDER ity o f PnIj 00:00: 00:00 THE SKIN [place] 00 :00 WEEKLY. Medical Branch tirzepatide 2021-09 Yes [id number] 5mg inject 5 [facility] 5 mg/0.5 mL 2-23 mg under ity of PnIj 00:00: the skin [place] 00 weekly. Medical Branch tirzepatide 2021-09 Yes [id number] 5mg inject 5 [facility] 5 mg/0.5 mL 2-23 mg under ity of PnIj 00:00: the skin [place] 00 weekly. Medical Branch tirzepatide 2021-09- No [id number] 5mg inject 5 [facility] 5 mg/0.5 mL 2-23 12-27 mg under ity of PnIj 00:00: 00:00 the skin [place] 00 :00 weekly. Medical Branch dulaglutide 2021-09 Yes [id number] .75mg inject 1 [facility] (TRULICITY) 2-19 Pen under ity of 0.75 mg/0.5 00:00: the skin [place] mL PnIj 00 weekly. Medical Branch dulaglutide 2021-09- No [id number] .75mg inject 1 [facility] (TRULICITY) 2-19 12-23 Pen under it y of 0.75 mg/0.5 00:00: 00:00 the skin [place] mL PnIj 00 :00 weekly. Medical Branch dulaglutide 2021-09- No [id number] .75mg inject 1 [facility] (TRULICITY) 2-19 12-23 Pen under it y of 0.75 mg/0.5 00:00: 00:00 the skin [place] mL PnIj 00 :00 weekly. Medical Branch MELOXICAM 2021-09 Yes [id number] TAKE 1 [facility] 7.5 mg 2-15 TABLET BY ity of tablet 00:00: MOUTH [place] 00 EVERY DAY Medical IN THE [place] MORNING MELOXICAM 2021-09 Yes [id number] TAKE 1 [facility] 7.5 mg 2-15 TABLET BY ity of tablet 00:00: MOUTH [place] 00 EVERY DAY Medical IN THE [place] MORNING MELOXICAM 2021-09 Yes [id number] TAKE 1 [facility] 7.5 mg 2-15 TABLET BY ity of tablet 00:00: MOUTH [place] 00 EVERY DAY Medical IN THE [place] MORNING MELOXICAM 2021-09 Yes [id number] TAKE 1 [facility] 7.5 mg 2-15 TABLET BY ity of tablet 00:00: MOUTH [place] 00 EVERY DAY Medical IN THE [place] MORNING MELOXICAM 2021-09 Yes [id number] TAKE 1 [facility] 7.5 mg 2-15 TABLET BY ity of tablet 00:00: MOUTH [place] 00 EVERY DAY Medical IN THE [facility] MELOXICAM 2021-09- No [id number] TAKE 1 [facility] 7.5 mg 2-15 01-05 TABLET BY ity of tablet 00:00: 00:00 MOUTH [place] 00 :00 EVERY DAY Medical IN THE [place] MORNING fluticasone 2021-09 Yes [id number] 1{spray Use 1 [facility] propionate 1-17 } [place] in ity o f 50 00:00: each [place] mcg/actuati 00 nostril in Ms dical on nasal the [place] spray morning and 1 [place] in the evening. semaglutide 2021-09 Yes [id number] .25mg inject [facility] (OZEMPIC) 1-17 0.25 mg ity of 0.25 mg or 00:00: under the [place] 0.5 mg(2 00 skin Medical mg/1.5 mL) weekly. [place] PnIj metformin 2021-09 Yes [id number] 500mg Take 1 [facility] ER 500 mg 1-17 tablet by ity o f 24 hr 00:00: mouth [place] tablet 00 daily with Medical breakfast. Branch atorvastati 2021-09 Yes [id number] 40mg Take 1 [facility] n 40 mg 1-17 tablet by ity of tablet 00:00: mouth at [place] 00 bedtime. Medical Branch gabapentin 2021-09 Yes [id number] 300mg Take 1 [facility] 300 mg 1-17 capsule by ity of capsule 00:00: mouth in [place] 00 the Medical morning Branch and 1 capsule at noon and 1 capsule in the evening. fluticasone 2021-09 Yes [id number] 1{spray Use 1 [facility] propionate 1-17 } [place] in ity o f 50 00:00: each [place] mcg/actuati 00 nostril in Me dical on nasal the Branch spray morning and 1 [place] in the evening. semaglutide 2021-09 Yes [id number] .25mg inject [facility] (OZEMPIC) 1-17 0.25 mg ity of 0.25 mg or 00:00: under the [place] 0.5 mg(2 00 skin Medical mg/1.5 mL) weekly. Branch PnIj metformin 2021-09 Yes [id number] 500mg Take 1 [facility] ER 500 mg 1-17 tablet by ity o f 24 hr 00:00: mouth [place] tablet 00 daily with Medical breakfast. Branch atorvastati 2021-09 Yes [id number] 40mg Take 1 [facility] n 40 mg 1-17 tablet by ity of tablet 00:00: mouth at [place] 00 bedtime. Medical Branch gabapentin 2021-09 Yes [id number] 300mg Take 1 [facility] 300 mg 1-17 capsule by ity of capsule 00:00: mouth in [place] 00 the Medical morning Branch and 1 capsule at noon and 1 capsule in the evening. fluticasone 2021-09 Yes [id number] 1{spray Use 1 [facility] propionate 1-17 } [place] in ity o f 50 00:00: each [place] mcg/actuati 00 nostril in Me dical on nasal the Branch spray morning and 1 [place] in the evening. semaglutide 2021-09 Yes [id number] .25mg inject [facility] (OZEMPIC) 1-17 0.25 mg ity of 0.25 mg or 00:00: under the [place] 0.5 mg(2 00 skin Medical mg/1.5 mL) weekly. Branch PnIj metformin 2021-09 Yes [id number] 500mg Take 1 [facility] ER 500 mg 1-17 tablet by ity o f 24 hr 00:00: mouth [place] tablet 00 daily with Medical breakfast. Branch atorvastati 2021-09 Yes [id number] 40mg Take 1 [facility] n 40 mg 1-17 tablet by ity of tablet 00:00: mouth at [place] 00 bedtime. Medical Branch gabapentin 2021-09 Yes [id number] 300mg Take 1 [facility] 300 mg 1-17 capsule by ity of capsule 00:00: mouth in [place] 00 the Medical morning Branch and 1 capsule at noon and 1 capsule in the evening. fluticasone 2021-09 Yes [id number] 1{spray Use 1 [facility] propionate 1-17 } [place] in ity o f 50 00:00: each [place] mcg/actuati 00 nostril in Me dical on nasal the Branch spray morning and 1 [place] in the evening. semaglutide 2021-09 Yes [id number] .25mg inject [facility] (OZEMPIC) 1-17 0.25 mg ity of 0.25 mg or 00:00: under the [place] 0.5 mg(2 00 skin Medical mg/1.5 mL) weekly. Branch PnIj metformin 2021-09 Yes [id number] 500mg Take 1 [facility] ER 500 mg 1-17 tablet by ity o f 24 hr 00:00: mouth [place] tablet 00 daily with Medical breakfast. Branch atorvastati 2021-09 Yes [id number] 40mg Take 1 [facility] n 40 mg 1-17 tablet by ity of tablet 00:00: mouth at [place] 00 bedtime. Medical Branch gabapentin 2021-09 Yes [id number] 300mg Take 1 [facility] 300 mg 1-17 capsule by ity of capsule 00:00: mouth in [place] 00 the Medical morning Branch and 1 capsule at noon and 1 capsule in the evening. fluticasone 2021-09 Yes [id number] 1{spray Use 1 [facility] propionate 1-17 } [place] in ity o f 50 00:00: each [place] mcg/actuati 00 nostril in Me dical on nasal the Branch spray morning and 1 [place] in the evening. metformin 2021-09 Yes [id number] 500mg Take 1 [facility] ER 500 mg 1-17 tablet by ity o f 24 hr 00:00: mouth [place] tablet 00 daily with Medical breakfast. Branch atorvastati 2021-09 Yes [id number] 40mg Take 1 [facility] n 40 mg 1-17 tablet by ity of tablet 00:00: mouth at [place] 00 bedtime. Medical Branch gabapentin 2021-09 Yes [id number] 300mg Take 1 [facility] 300 mg 1-17 capsule by ity of capsule 00:00: mouth in [place] 00 the Medical morning Branch and 1 capsule at noon and 1 capsule in the evening. fluticasone 2021-09 Yes [id number] 1{spray Use 1 [facility] propionate 1-17 } [place] in ity o f 50 00:00: each [place] mcg/actuati 00 nostril in Me dical on nasal the Branch spray morning and 1 [place] in the evening. metformin 2021-09 Yes [id number] 500mg Take 1 [facility] ER 500 mg 1-17 tablet by ity o f 24 hr 00:00: mouth [place] tablet 00 daily with Medical breakfast. Branch atorvastati 2021-09 Yes [id number] 40mg Take 1 [facility] n 40 mg 1-17 tablet by ity of tablet 00:00: mouth at [place] 00 bedtime. Medical Branch gabapentin 2021-09 Yes [id number] 300mg Take 1 [facility] 300 mg 1-17 capsule by ity of capsule 00:00: mouth in [place] 00 the Medical morning Branch and 1 capsule at noon and 1 capsule in the evening. fluticasone 2021-09 Yes [id number] 1{spray Use 1 [facility] propionate 1-17 } [place] in ity o f 50 00:00: each [place] mcg/actuati 00 nostril in Me dical on nasal the Branch spray morning and 1 [place] in the evening. metformin 2021-09 Yes [id number] 500mg Take 1 [facility] ER 500 mg 1-17 tablet by ity o f 24 hr 00:00: mouth [place] tablet 00 daily with Medical breakfast. Branch atorvastati 2021-09 Yes [id number] 40mg Take 1 [facility] n 40 mg 1-17 tablet by ity of tablet 00:00: mouth at [place] 00 bedtime. Medical Branch gabapentin 2021-09 Yes [id number] 300mg Take 1 [facility] 300 mg 1-17 capsule by ity of capsule 00:00: mouth in [place] 00 the Medical morning Branch and 1 capsule at noon and 1 capsule in the evening. fluticasone 2021-09 Yes [id number] 1{spray Use 1 [facility] propionate 1-17 } [place] in ity o f 50 00:00: each [place] mcg/actuati 00 nostril in Me dical on nasal the Branch spray morning and 1 [place] in the evening. metformin 2021-09 Yes [id number] 500mg Take 1 [facility] ER 500 mg 1-17 tablet by ity o f 24 hr 00:00: mouth [place] tablet 00 daily with Medical breakfast. Branch atorvastati 2021-09 Yes [id number] 40mg Take 1 [facility] n 40 mg 1-17 tablet by ity of tablet 00:00: mouth at [place] 00 bedtime. Medical Branch gabapentin 2021-09 Yes [id number] 300mg Take 1 [facility] 300 mg 1-17 capsule by ity of capsule 00:00: mouth in [place] 00 the Medical morning Branch and 1 capsule at noon and 1 capsule in the evening. fluticasone 2021-09 Yes [id number] 1{spray Use 1 [facility] propionate 1-17 } [place] in ity o f 50 00:00: each [place] mcg/actuati 00 nostril in Me dical on nasal the Branch spray morning and 1 [place] in the evening. metformin 2021-09 Yes [id number] 500mg Take 1 [facility] ER 500 mg 1-17 tablet by ity o f 24 hr 00:00: mouth [place] tablet 00 daily with Medical breakfast. Branch atorvastati 2021-09 Yes [id number] 40mg Take 1 [facility] n 40 mg 1-17 tablet by ity of tablet 00:00: mouth at [place] 00 bedtime. Medical Branch gabapentin 2021-09 Yes [id number] 300mg Take 1 [facility] 300 mg 1-17 capsule by ity of capsule 00:00: mouth in [place] 00 the Medical morning Branch and 1 capsule at noon and 1 capsule in the evening. fluticasone 2021-09 Yes [id number] 1{spray Use 1 [facility] propionate 1-17 } [place] in ity o f 50 00:00: each [place] mcg/actuati 00 nostril in Me dical on nasal the Branch spray morning and 1 [place] in the evening. metformin 2021-09 Yes [id number] 500mg Take 1 [facility] ER 500 mg 1-17 tablet by ity o f 24 hr 00:00: mouth [place] tablet 00 daily with Medical breakfast. Branch atorvastati 2021-09 Yes [id number] 40mg Take 1 [facility] n 40 mg 1-17 tablet by ity of tablet 00:00: mouth at [place] 00 bedtime. Medical Branch gabapentin 2021-09 Yes [id number] 300mg Take 1 [facility] 300 mg 1-17 capsule by ity of capsule 00:00: mouth in [place] 00 the Medical morning Branch and 1 capsule at noon and 1 capsule in the evening. fluticasone 2021-09 Yes [id number] 1{spray Use 1 [facility] propionate 1-17 } [place] in ity o f 50 00:00: each [place] mcg/actuati 00 nostril in Me dical on nasal the Branch spray morning and 1 [place] in the evening. gabapentin 2021-09 Yes [id number] 300mg Take 1 [facility] 300 mg 1-17 capsule by ity of capsule 00:00: mouth in [place] 00 the Medical morning Branch and 1 capsule at noon and 1 capsule in the evening. fluticasone 2021-09 Yes [id number] 1{spray Use 1 [facility] propionate 1-17 } [place] in ity o f 50 00:00: each [place] mcg/actuati 00 nostril in Me dical on nasal the Branch spray morning and 1 [place] in the evening. gabapentin 2021-09 Yes [id number] 300mg Take 1 [facility] 300 mg 1-17 capsule by ity of capsule 00:00: mouth in [place] 00 the Medical morning Branch and 1 capsule at noon and 1 capsule in the evening. fluticasone 2021-09- No [id number] 1{spray Use 1 [facility] propionate 1-17 02-15 } [place] in ity of 50 00:00: 00:00 each [place] mcg/actuati 00 :00 nostril in Me dical on nasal the Branch spray morning and 1 [place] in the evening. gabapentin 2021-09- No [id number] 300mg Take 1 [facility] 300 mg 1-17 02-15 capsule by ity of capsule 00:00: 00:00 mouth in [place] 00 :00 the Medical morning Branch and 1 capsule at noon and 1 capsule in the evening. metformin 2021-09- No [id number] 500mg Take 1 [facility] ER 500 mg 10-03 tablet by ity of 24 hr 00:00: 00:00 mouth [place] tablet 00 :00 daily with Medical breakfast. Branch atorvastati 2021-09- No [id number] 40mg Take 1 [facility] n 40 mg 10-03 tablet by ity of tablet 00:00: 00:00 mouth at [place] 00 :00 bedtime. Medical Branch semaglutide 2021-09- No [id number] .25mg inject Univers (OZEMPIC) 1-17 12-19 0.25 mg ity of 0.25 mg or 00:00: 00:00 under the [place] 0.5 mg(2 00 :00 skin Medical mg/1.5 mL) weekly. Branch PnIj semaglutide 2021-09- No [id number] .25mg inject [facility] (OZEMPIC) 17 12-19 0.25 mg ity of 0.25 mg or 00:00: 00:00 under the [place] 0.5 mg(2 00 :00 skin Medical mg/1.5 mL) weekly. Branch PnIj meloxicam 2021-09 Yes [id number] 7.5mg Take 1 [facility] 7.5 mg 1-10 tablet by ity of tablet 00:00: mouth in [place] the Medical morning. Branch cyclobenzap 2021-09 Yes [id number] 10mg Take 1 [facility] rine 10 mg 1-10 tablet by ity of tablet 00:00: mouth in [place] the Medical morning Branch and 1 tablet at noon and 1 tablet in the evening. meloxicam 2021-09 Yes [id number] 7.5mg Take 1 [facility] 7.5 mg 1-10 tablet by ity of tablet 00:00: mouth in [place] the Medical morning. Branch cyclobenzap 2021-09 Yes [id number] 10mg Take 1 [facility] rine 10 mg 1-10 tablet by ity of tablet 00:00: mouth in [place] the Medical morning Branch and 1 tablet at noon and 1 tablet in the evening. meloxicam 2021-09 Yes [id number] 7.5mg Take 1 [facility] 7.5 mg 1-10 tablet by ity of tablet 00:00: mouth in [place] the Medical morning. Branch cyclobenzap 2021-09 Yes [id number] 10mg Take 1 [facility] rine 10 mg 1-10 tablet by ity of tablet 00:00: mouth in [place] the Medical morning Branch and 1 tablet at noon and 1 tablet in the evening. meloxicam 2021-09 Yes [id number] 7.5mg Take 1 [facility] 7.5 mg 1-10 tablet by ity of tablet 00:00: mouth in [place] the Medical morning. Branch cyclobenzap 2021-09 Yes [id number] 10mg Take 1 [facility] rine 10 mg 1-10 tablet by ity of tablet 00:00: mouth in [place] the Medical morning Branch and 1 tablet at noon and 1 tablet in the evening. meloxicam 2021-09 Yes [id number] 7.5mg Take 1 [facility] 7.5 mg 1-10 tablet by ity of tablet 00:00: mouth in [place] the Medical morning. Branch cyclobenzap 2021-09 Yes [id number] 10mg Take 1 [facility] rine 10 mg 1-10 tablet by ity of tablet 00:00: mouth in [place] the Medical morning Branch and 1 tablet at noon and 1 tablet in the evening. meloxicam 2021-09 Yes [id number] 7.5mg Take 1 [facility] 7.5 mg 1-10 tablet by ity of tablet 00:00: mouth in [place] the morning. Branch cyclobenzap 2021-09 Yes [id number] 10mg Take 1 [facility] rine 10 mg 1-10 tablet by ity of tablet 00:00: mouth in [place] the Medical morning Branch and 1 tablet at noon and 1 tablet in the evening. meloxicam 2021-09 Yes [id number] 7.5mg Take 1 [facility] 7.5 mg 1-10 tablet by ity of tablet 00:00: mouth in [place] the morning. Branch cyclobenzap 2021-09 Yes [id number] 10mg Take 1 [facility] rine 10 mg 1-10 tablet by ity of tablet 00:00: mouth in [place] the Medical morning Branch and 1 tablet at noon and 1 tablet in the evening. meloxicam 2021-09 Yes [id number] 7.5mg Take 1 [facility] 7.5 mg 1-10 tablet by ity of tablet 00:00: mouth in [place] the Medical morning. Branch cyclobenzap 2021-09 Yes [id number] 10mg Take 1 [facility] rine 10 mg 1-10 tablet by ity of tablet 00:00: mouth in [place] the Medical morning Branch and 1 tablet at noon and 1 tablet in the evening. meloxicam 2021-09 Yes [id number] 7.5mg Take 1 [facility] 7.5 mg 1-10 tablet by ity of tablet 00:00: mouth in [place] the Medical morning. Branch cyclobenzap 2021-09 Yes [id number] 10mg Take 1 [facility] rine 10 mg 1-10 tablet by ity of tablet 00:00: mouth in [address] and 1 tablet at noon and 1 tablet in the evening. cyclobenzap 2021-09 Yes [id number] 10mg Take 1 [facility] rine 10 mg 1-10 tablet by ity of tablet 00:00: mouth in [place] [address] the [facility] and 1 tablet at noon and 1 tablet in the evening. cyclobenzap 2021-09 Yes [id number] 10mg Take 1 [facility] rine 10 mg 1-10 tablet by ity of tablet 00:00: mouth in [place] [address] the [facility] and 1 tablet at noon and 1 tablet in the evening. cyclobenzap 2021-09 Yes [id number] 10mg Take 1 [facility] rine 10 mg 1-10 tablet by ity of tablet 00:00: mouth in [address] and 1 tablet at noon and 1 tablet in the evening. cyclobenzap 2021-09 Yes [id number] 10mg Take 1 [facility] rine 10 mg 1-10 tablet by ity of tablet 00:00: mouth in [address] and 1 tablet at noon and 1 tablet in the evening. cyclobenzap 2021-09 Yes [id number] 10mg Take 1 [facility] rine 10 mg 1-10 tablet by ity of tablet 00:00: mouth in [address] and 1 tablet at noon and 1 tablet in the evening. cyclobenzap 2021-09 Yes [id number] 10mg Take 1 [facility] rine 10 mg 1-10 tablet by ity of tablet 00:00: mouth in [address] and 1 tablet at noon and 1 tablet in the evening. meloxicam 2021-09 Yes [id number] 7.5mg Take 1 [facility] 7.5 mg 1-10 tablet by ity of tablet 00:00: mouth in [place] [address] the [facility]. Branch cyclobenzap 2021-09 Yes [id number] 10mg Take 1 [facility] rine 10 mg 1-10 tablet by ity of tablet 00:00: mouth in [address] and 1 tablet at noon and 1 tablet in the evening. cyclobenzap 2021-09- [id number] 10mg Take 1 [facility] rine 10 mg 1-10 01-05 tablet by ity of tablet 00:00: 00:00 mouth in [place] 00 :00 the Medical morning Branch and 1 tablet at noon and 1 tablet in the evening. cyclobenzap 2021-09- No [id number] 10mg Take 1 [facility] rine 10 mg 1-10 -05 tablet by ity of tablet 00:00: 00:00 mouth in [place] 00 :00 the Medical morning Branch and 1 tablet at noon and 1 tablet in the evening. meloxicam 2021-09- No [id number] 7.5mg Take 1 [facility] 7.5 mg 1-10 12-15 tablet by ity of tablet 00:00: 00:00 mouth in [place] 00 :00 the Medical morning. Branch meloxicam 2021-09- No [id number] 7.5mg Take 1 [facility] 7.5 mg 1-10 12-15 tablet by ity of tablet 00:00: 00:00 mouth in [place] 00 :00 the Medical morning. Branch meloxicam 2021-09- No [id number] 7.5mg Take 1 [facility] 7.5 mg 1-10 12-15 tablet by ity of tablet 00:00: 00:00 mouth in [place] 00 :00 the Medical morning. Branch mupirocin 2 0 Yes [id number] Apply to Univers % ointment 1-19 [id number] area(s) 3 it y of 00:00: (three) [place] 00 times Medical daily. Branch mupirocin 2 2021-0 Yes [id number] Apply to Univers % ointment 1-19 [id number] area(s) 3 it y of 00:00: (three) [place] 00 times Medical daily. Branch mupirocin 2 2021-0 Yes [id number] Apply to Univers % ointment 1-19 [id number] area(s) 3 it y of 00:00: (three) [place] 00 times Medical daily. Branch mupirocin 2 2021-0 Yes [id number] Apply to Univers % ointment 1-19 [id number] area(s) 3 it y of 00:00: (three) [place] 00 times Medical daily. Branch mupirocin 2 2021-0 Yes [id number] Apply to Univers % ointment 1-19 [id number] area(s) 3 it y of 00:00: (three) [place] 00 times Medical daily. Branch mupirocin 2 2021-0 Yes [id number] Apply to Univers % ointment 1-19 [id number] area(s) 3 it y of 00:00: (three) [place] 00 times Medical daily. Branch mupirocin 2 2021-0 Yes [id number] Apply to Univers % ointment 1-19 [id number] area(s) 3 it y of 00:00: (three) [place] 00 times Medical daily. Branch mupirocin 2 2021-0 Yes [id number] Apply to Univers % ointment 1-19 [id number] area(s) 3 it y of 00:00: (three) [place] 00 times Medical daily. Branch mupirocin 2 2021-0 Yes [id number] Apply to Univers % ointment 1-19 [id number] area(s) 3 it y of 00:00: (three) [place] 00 times Medical daily. Branch mupirocin 2 2021-0 Yes [id number] Apply to Univers % ointment 1-19 [id number] area(s) 3 it y of 00:00: (three) [place] 00 times Medical daily. Branch mupirocin 2 2021-0 Yes [id number] Apply to Univers % ointment 1-19 [id number] area(s) 3 it y of 00:00: (three) [place] 00 times Medical daily. Branch mupirocin 2 2021-0 Yes [id number] Apply to Univers % ointment 1-19 [id number] area(s) 3 it y of 00:00: (three) [place] 00 times Medical daily. Branch mupirocin 2 2021-0 Yes [id number] Apply to Univers % ointment 1-19 [id number] area(s) 3 it y of 00:00: (three) [place] 00 times Medical daily. Branch mupirocin 2 2021-0 Yes [id number] Apply to Univers % ointment 1-19 [id number] area(s) 3 it y of 00:00: (three) [place] 00 times Medical daily. Branch mupirocin 2 2021-0 Yes [id number] Apply to Univers % ointment 1-19 [id number] area(s) 3 it y of 00:00: (three) [place] 00 times Medical daily. Branch mupirocin 2 2021-0 Yes [id number] Apply to Univers % ointment 1-19 [id number] area(s) 3 it y of 00:00: (three) [place] 00 times Medical daily. Branch mupirocin 2 2021-0 Yes [id number] Apply to Univers % ointment 1-19 [id number] area(s) 3 it y of 00:00: (three) [place] 00 times Medical daily. Branch mupirocin 2 2021-0 Yes [id number] Apply to Univers % ointment 1-19 [id number] area(s) 3 it y of 00:00: (three) [place] 00 times Medical daily. Branch mupirocin 2 2021-0 Yes [id number] Apply to Univers % ointment 1-19 [id number] area(s) 3 it y of 00:00: (three) [place] 00 times Medical daily. Branch mupirocin 2 2021-0 Yes [id number] Apply to Univers % ointment 1-19 [id number] area(s) 3 it y of 00:00: (three) [place] 00 times Medical daily. Branch mupirocin 2 2021-0 Yes [id number] Apply to Univers % ointment 1-19 [id number] area(s) 3 it y of 00:00: (three) [place] 00 times Medical daily. Branch mupirocin 2 2021-0 Yes [id number] Apply to Univers % ointment 1-19 [id number] area(s) 3 it y of 00:00: (three) [place] 00 times Medical daily. Branch mupirocin 2 2021-0 Yes [id number] Apply to Univers % ointment 1-19 [id number] area(s) 3 it y of 00:00: (three) [place] 00 times Medical daily. Branch mupirocin 2 2021-0 Yes [id number] Apply to Univers % ointment 1-19 [id number] area(s) 3 it y of 00:00: (three) [place] 00 times Medical daily. Branch mupirocin 2 2021-2022- No [id number] Apply to Univers % ointment 1-19 -11 [id number] area(s) 3 i ty of 00:00: 00:00 (three) [place] 00 :00 times Medical daily. Branch mupirocin 2 2021-2022- No [id number] Apply to Univers % ointment 1-19 -11 [id number] area(s) 3 i ty of 00:00: 00:00 (three) [place] 00 :00 times Medical daily. Branch mupirocin 2 2022- No [id number] Apply to Univers % ointment 10-05 [id number] area(s) 3 i ty of 00:00: 00:00 (three) [place] 00 :00 times Medical daily. Branch traMADoL 50 2021- [...] Indication s: acute pain sulfamethox 2021- No [id number] 1{tbl} Take 1 [facility] azole-trime 10-02 tablet by it y of thoprim 00:00: 05:59 mouth 2 [place] (BACTRIM 00 :00 (two) Medical DS) 800-160 times Branch mg per daily for tablet 7 days. No known 2019- No No known [facility] [facility] No known 2018- No No known [facility] 04[facility] [facility] No known 2019-0 No No known [facility] medications 04-[address] [facility] Immunizations Ordered Filled Date Status Comments Source Immunization Name Immunization Name TDAP 2021-10-02 Completed [facility] of 00:00:00 [facility] TDAP 2021-10-02 Completed University 00:00:00 [facility] TDAP 2021-10-02 Completed University 00:00:00 [facility] TDAP 2021-10-02 Completed University 00:00:00 [facility] TDAP 2021-10-02 Completed University of 00:00:00 [facility] TDAP 2021-10-02 Completed University of 00:00:00 [place] [facility] TDAP 2021-10-02 Completed University of 00:00:00 [place] [facility] TDAP 2021-10-02 Completed University of 00:00:00 [place] [facility] TDAP 2021-10-02 Completed University of 00:00:00 [place] [facility] TDAP 2021-10-02 Completed University of 00:00:00 [place] [facility] TDAP 2021-10-02 Completed University of 00:00:00 [place] [facility] TDAP 2021-10-02 Completed University of 00:00:00 [place] [facility] TDAP 2021-10-02 Completed University of 00:00:00 [place] [facility] TDAP 2021-10-02 Completed University of 00:00:00 [place] [facility] TDAP 2021-10-02 Completed [facility] of 00:00:00 [facility] TDAP 2021-10-02 Completed University of 00:00:00 [facility] TDAP 2021-10-02 Completed University of 00:00:00 [facility] TDAP 2021-10-02 Completed University of 00:00:00 [facility] TDAP 2021-10-02 Completed [facility] [facility] TDAP 2021-10-02 Completed University of 00:00:00 [facility] TDAP 2021-10-02 Completed University of 00:00:00 [facility] TDAP 2021-10-02 Completed University of 00:00:00 [facility] TDAP 2021-10-02 Completed University of 00:00:00 [facility] TDAP 2021-10-02 Completed University of 00:00:00 [facility] TDAP 2021-10-02 Completed University of 00:00:00 [facility] TDAP 2021-10-02 Completed University of 00:00:00 [facility] TDAP 2021-10-02 Completed University of 00:00:00 [facility] TDAP 2021-10-02 Completed University of 00:00:00 [facility] TDAP 2021-10-02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
[2023-07-12] MEDS ORDERED: LIDOCAINE 1% 20 ML MDV ONE (16:07)
--- NOTE | 2023-07-12 16:11 | RAD REPORT ---
EXAM DESCRIPTION: Tiara Hael (2 Views)07/12/2023 3:49 pm CLINICAL HISTORY: sob COMPARISON: 06/21/2023 FINDINGS: The lungs appear clear of acute infiltrate. The heart is mildly enlarged IMPRESSION: No acute abnormalities displayed
[2023-07-12] MEDS ORDERED: NA CHLORIDE 0.9% 1,000 ML ONE (16:14)
[2023-07-12] MEDS ORDERED: NA CHLORIDE 0.9% 500 ML ONE (16:15)
[2023-07-12 16:55] LABS: Absolute Lymphocytes (CBC) 2.6 K/uL (0.7-4.9); Hematocrit 43.4 % (39.6-49.0); Lymphocytes % 23.4 % (15.3-44.8); MCV 90.7 fL (80-100); MPV 7.8 fL (7.6-11.3); Platelets 259 thou/uL (152-406); RBC Red Blood Cell Count 4.78 M/uL (4.33-5.43)
[2023-07-12 16:56] LABS: Protime INR 1.01
[2023-07-12 17:16] LABS: ALT/SGPT 66 U/L (16-61); AST/SGOT 27 U/L (15-37); Albumin 3.1 g/dL (3.4-5.0); Alkaline Phosphatase 94 U/L (45-117); BUN Blood Urea Nitrogen 8 mg/dL (7-18); Bicarbonate 30 mEq/L (21-32); Bilirubin Total 0.2 mg/dL (0.2-1.0); Glomerular Filtration Rate 115 ml/min (=/>90); Glucose Level 275 mg/dL (74-106); NT PRO-BNP 19 pg/mL (<125); Potassium 3.9 mEq/L (3.5-5.1); Protein, Total 7.3 g/dL (6.4-8.2); Sodium Level 135 mEq/L (136-145); Troponin High Sensitivity 12.7 pg/mL (<58.9)
[2023-07-12 17:17] LABS: Bilirubin Direct < 0.1 mg/dL (0-0.2); Bilirubin Indirect, Calculated ND mg/dL (0.2-0.8)
--- NOTE | 2023-07-12 17:50 | EDPHYS ---
Physician Documentation [facility] Name: Kenny Fallon Age: 37 yrs Sex: Male : 1985 Arrival Date: 07/12/2023 Time: 13:21 Bed 14 Private MD: ED Physician Papa Leo HPI: 07/12 17:43 This 37 yrs old Male presents to ER via Wheelchair with complaints of Skin gordon Sore(s). 17:43 The patient presents with an abscess of the right trapezius, The patient presents with gordon cellulitis of the right trapezius. Description: The affected area is small, moderate sized, confluent, erythematous, fluctuant, raised, swollen, tense. Onset: The symptoms/episode began/occurred 7 day(s) ago. Possible cause(s): unknown. Associated signs and symptoms: Pertinent positives: swelling. Modifying factors: the symptoms are alleviated by nothing, the symptoms are aggravated by nothing. Severity of symptoms: At their worst the symptoms were moderate, in the emergency department the symptoms are unchanged. The patient has experienced similar episodes in the past, several times. Historical: - Allergies: 13:37 No Known Allergies; ll1 - PMHx: 13:37 Hypertension; Hyperlipidemia; diabetes mellitus; "back problems" (Cholecystectomy); ll1 - PSHx: 13:37 Cholecystectomy; I\\T\\D (Cholecystectomy); ll1 - Immunization history:: Adult Immunizations up to date. - Social history:: Smoking status: Patient reports the use of cigarette tobacco products, smokes one pack cigarettes per day. ROS: 17:46 Constitutional: Negative for fever, chills, and weight loss, Eyes: Negative for injury, gordon pain, redness, and discharge, ENT: Negative for injury, pain, and discharge, Neck: Negative for injury, pain, and swelling, Cardiovascular: Negative for chest pain, palpitations, and edema, Respiratory: Negative for shortness of breath, cough, wheezing, and pleuritic chest pain, Abdomen/GI: Negative for abdominal pain, nausea, vomiting, diarrhea, and constipation, Back: Negative for injury and pain, : Negative for injury, bleeding, discharge, and swelling, MS/Extremity: Negative for injury and deformity, Neuro: Negative for headache, weakness, numbness, tingling, and seizure, Psych: Negative for depression, anxiety, suicide ideation, homicidal ideation, and hallucinations, Allergy/Immunology: Negative for hives, rash, and allergies, Endocrine: Negative for neck swelling, polydipsia, polyuria, polyphagia, and marked weight changes, 17:46 Skin: Positive for abscess, erythema, of the back and right trapezius, diffusely, Exam: 17:46 Constitutional: This is a well developed, well nourished patient who is awake, alert, gordon and in no acute distress. Head/Face: Normocephalic, atraumatic. Eyes: Pupils equal round and reactive to light, extra-ocular motions intact. Lids and lashes normal. Conjunctiva and sclera are non-icteric and not injected. Cornea within normal limits. Periorbital areas with no swelling, redness, or edema. ENT: Nares patent. No nasal discharge, no septal abnormalities noted. Tympanic membranes are normal and external auditory canals are clear. Oropharynx with no redness, swelling, or masses, exudates, or evidence of obstruction, uvula midline. Mucous membranes moist. Chest/axilla: Normal chest wall appearance and motion. Nontender with no deformity. No lesions are appreciated. Cardiovascular: Regular rate and rhythm with a normal S1 and S2. No gallops, murmurs, or rubs. Normal PMI, no JVD. No pulse deficits. Respiratory: Lungs have equal breath sounds bilaterally, clear to auscultation and percussion. No rales, rhonchi or wheezes noted. No increased work of breathing, no retractions or nasal flaring. Abdomen/GI: Soft, non-tender, with normal bowel sounds. No distension or tympany. No guarding or rebound. No evidence of tenderness throughout. Back: No spinal tenderness. No costovertebral tenderness. Full range of motion. Male : Normal genitalia with no discharge or lesions. Skin: Warm, dry with normal turgor. Normal color with no rashes, no lesions, and no evidence of cellulitis. MS/ Extremity: Pulses equal, no cyanosis. Neurovascular intact. Full, normal range of motion. Neuro: Awake and alert, GCS 15, oriented to person, place, time, and situation. Cranial nerves II-XII grossly intact. Motor strength 5/5 in all extremities. Sensory grossly intact. Cerebellar exam normal. Normal gait. Psych: Awake, alert, with orientation to person, place and time. Behavior, mood, and affect are within normal limits. 17:46 Neck: ROM/movement: is normal, Lymph nodes: no appreciated lymphadenopathy, 17:57 ECG was reviewed by the Attending Physician. [facility] Vital Signs: 13:38 BP 144 / 98; Pulse 102; Resp 20; Temp 97.7; Pulse Ox 93% ; Weight 181.44 kg; Height 6 ll1 ft. 0 in. ; Pain 9/10; 18:03 BP 151 / 101; Pulse 96; Resp 18; Pulse Ox 97% on R/A; eh3 13:38 Body Mass Index 54.25 (181.44 kg, 182.88 cm) ll1 13:38 Pain Scale: Adult ll1 Procedures: 17:59 I \\T\\ D: Incision and drainage was performed for an abscess of the right Prepped with [facility] Betadine, Anesthetized with 15 ml's 1% Lidocaine. Incised with #11 blade. Drained moderate amount Packed with iodoform gauze, Dressing: non-Adherent dressing, the patient tolerated the procedure well. MDM: 13:33 Patient medically screened. [facility] 17:47 Differential diagnosis: abscess, cellulitis. Data reviewed: vital signs, nurses notes, [facility] lab test result(s), EKG. Consideration of Admission/Observation Escalation of care including admission/observation considered. I considered the following discharge prescriptions or medication management in the emergency department Medications were administered in the Emergency Department. See MAR. Independent interpretation of the following test(s) in the Emergency Department EKG: See my EKG interpretation above. Test considered but Not performed: Ultrasound NO USG. Historians other than the Patient: PT GOOD HISTORIAN. Care significantly affected by the following chronic conditions: Diabetes, Hypertension, Obesity, MRSA. 07/12 15:28 Order name: Basic Metabolic Panel; Complete Time: 17:26 [facility] 07/12 15:28 Order name: CBC with Diff; Complete Time: 17:26 [facility] 07/12 15:28 Order name: LFT's; Complete Time: 17:26 [facility] 07/12 15:28 Order name: Magnesium; Complete Time: 17:26 [facility] 07/12 15:28 Order name: NT PRO-BNP; Complete Time: 17:26 [facility] 07/12 15:28 Order name: PT-INR; Complete Time: 17: [facility] 07/12 15:28 Order name: Troponin HS; Complete Time: 17:26 [facility] 07/12 15:34 Order name: Chest Pa And Lat (2 Views) XRAY; Complete Time: 16:34 07/12 15:28 Order name: EKG; Complete Time: 15:29 [facility] 07/12 15:28 Order name: Cardiac monitoring; Complete Time: 15:45 [facility] 07/12 15:28 Order name: EKG - Nurse/Tech; Complete Time: 18:04 07/12 15:28 Order name: IV Saline Lock; Complete Time: 16:54 [facility] 07/12 15:28 Order name: Labs collected and sent; Complete Time: 16:54 [facility] 07/12 15:28 Order name: O2 Per Protocol; Complete Time: 16:54 [facility] 07/12 15:28 Order name: O2 Sat Monitoring; Complete Time: 16:54 [facility] 07/12 15:28 Order name: Dressing - Wound; Complete Time: 18:03 [facility] 07/12 15:28 Order name: Gloves, Sterile; Complete Time: 15:54 [facility] 07/12 15:28 Order name: Setup Suture Tray; Complete Time: 15:54 [facility] 07/12 15:28 Order name: Misc. Order: guaze iodo, 11 blade; Complete Time: 15:54 [facility] EC:57 Rate is 97 beats/min. Rhythm is regular. QRS [place] is Normal. AR interval is normal. QRS gordon interval is normal. QT interval is normal. No Q waves. T waves are Normal. No ST changes noted. Clinical impression: NSR w/ Non-specific ST/T Changes and No evidence of ischemia. Interpreted by me. Reviewed by me. Administered Medications: 16:15 Drug: NS 0.9% IV 500 ml IV at bolus once Route: IV; Rate: bolus; Site: right forearm; [facility] 18:00 Follow up: IV Status: Completed infusion; IV Intake: 300ml 3 16:15 Drug: NS 0.9% IV 1000 ml IV at 125 ml/hr continuous Route: IV; Rate: 125 ml/hr; Site: [facility] right forearm; 18:00 Follow up: IV Status: Completed infusion; IV Intake: 200ml eh3 17:30 Drug: Lidocaine Infiltration (1 %) 15 ml 20 ml Infiltration once; to bedside {Note: eh3 administered by Papa Leo MD.} Volume: 20 ml; Route: Infiltration; 17:55 Drug: Doxycycline PO 200 mg PO once Route: PO; 3 18:00 Follow up: Response: Medication administered at discharge. 3 17:55 Drug: Trimethoprim-Sulfamethoxazole PO (160 mg-800 mg (DS) 1 tablet PO once Route: PO; 3 18:00 Follow up: Response: Medication administered at discharge. 3 17:55 Drug: [place] PO 10 mg-325 mg 1 tabs PO once Route: PO; 3 18:00 Follow up: Response: Medication administered at discharge. [facility] Disposition Summary: 07/12/23 17:49 Discharge Ordered Notes: Location: Home [facility] Problem: new gordon Symptoms: have improved gordon Condition: Stable gordon Diagnosis - Cutaneous abscess of other sites - RIGHT POSTERIOR NECK gordon - Obesity, unspecified gordon - Type 2 diabetes mellitus with hyperglycemia [facility] Followup: gordon - With: Private Physician - When: 2 - 3 days - Reason: Recheck today's complaints, Continuance of care, Re-evaluation by your physician Followup: [facility] - With: Freddie Lakhani MD - When: 2 - 3 days - Reason: Recheck today's complaints, Re-evaluation by your physician Discharge Instructions: - Discharge Summary Sheet gordon - Skin Abscess gordon - Dental Pain gordon - Type 2 Diabetes Mellitus, Diagnosis, Adult [facility] - Hyperglycemia [facility] - Obesity, Adult gordon - Dental Pain, [id number] [facility] - Diabetes Mellitus and Nutrition, Adult [facility] Forms: - Medication Reconciliation Form [facility] - Thank You Letter [facility] - Antibiotic Education [facility] - Prescription Opioid Use [facility] - Patient Portal Instructions [facility] - Leadership Thank You Letter [facility] Prescriptions: - [place] 2 % Topical ointment - apply 1 application TOPICAL route 3 times per day; 15 gram tube; Refills: 0, [facility] Product Selection Permitted - acetaminophen-codeine 300-30 mg Oral tablet - take 2 tablet ORAL route every 6 hours; 20 tablet; Refills: 0, Product [facility] Selection Permitted - Doxycycline Hyclate 100 mg Oral Tablet - take 1 tablet ORAL route every 12 hours; 20 tablet; Refills: 0, Product [facility] Selection Permitted - Bactrim DS 800-160 mg Oral Tablet - take 1 tablet ORAL route every 12 hours for 10 days; 20 tablet; Refills: 0, [facility] Product Selection Permitted Signatures: Dispatcher [employer] EDPapa Conti MD MD cha Lewis, Lynsay, RN RN ll1 Gena Coreas RN RN eh3 Corrections: (The following items were deleted from the chart) 15:50 15:29 Chest Single View+RAD.RAD.BRZ ordered. EDMS EDMS
--- NOTE | 2023-07-12 17:50 | ER ---
Nurse's Notes [facility] Name: Kenny Fallon Age: 37 yrs Sex: Male : 1985 Arrival Date: 07/12/2023 Time: 13:21 Bed 14 Private MD: Diagnosis: Cutaneous abscess of other sites-RIGHT POSTERIOR NECK;Obesity, unspecified;Type 2 diabetes mellitus with hyperglycemia Presentation: 07/12 13:38 Coronavirus screen: Vaccine status: Patient reports being unvaccinated. Client denies ll1 travel out of the [place] in the last 14 days. At this time, the client does not indicate any symptoms associated with coronavirus-19. Ebola Screen: Patient denies travel to an Ebola-affected area in the 21 days before illness onset. Initial Sepsis Screen: Does the patient meet any 2 criteria? No. Patient's initial sepsis screen is negative. Does the patient have a suspected source of infection? Yes: Skin breakdown/wound. Risk Assessment: Do you want to hurt yourself or someone else? Patient reports no desire to harm self or others. Onset of symptoms was June 23, 2023. 13:38 Method Of Arrival: Wheelchair ll1 13:38 Acuity: TRINI 3 ll1 13:39 Chief complaint: Patient states: Abscess to R posterior neck for 2-3 weeks. Antibiotics ll1 not helping. Drains white pus. Historical: - Allergies: 13:37 No Known Allergies; ll1 - PMHx: 13:37 Hypertension; Hyperlipidemia; diabetes mellitus; "back problems" (Cholecystectomy); ll1 - PSHx: 13:37 Cholecystectomy; I\\T\\D (Cholecystectomy); ll1 - Immunization history:: Adult Immunizations up to date. - Social history:: Smoking status: Patient reports the use of cigarette tobacco products, smokes one pack cigarettes per day. Vital Signs: 13:38 BP 144 / 98; Pulse 102; Resp 20; Temp 97.7; Pulse Ox 93% ; Weight 181.44 kg; Height 6 ll1 ft. 0 in. ; Pain 9/10; 18:03 BP 151 / 101; Pulse 96; Resp 18; Pulse Ox 97% on R/A; eh3 13:38 Body Mass Index 54.25 (181.44 kg, 182.88 cm) ll1 13:38 Pain Scale: Adult ll1 ED Course: 13:26 Patient arrived in ED. mr 13:33 Papa Leo MD is Attending Physician. gordon 13:37 Arm band placed on. ll1 13:39 Triage completed. ll1 15:41 Patient placed in an exam room, on a stretcher. ll1 15:44 Gena Coreas, RN is Primary Nurse. eh3 15:50 Chest Pa And Lat (2 Views) XRAY In Process Unspecified. EDMS 17:45 Assist provider with I \\T\\ D: of an abscess on posterior neck Set up I\\T\\D tray. Performed eh 3 by Papa Leo MD Wound packed. iodoform gauze, Dressing with nonadherent dressing Patient tolerated well. 17:48 Freddie Lakhani MD is Referral Physician. gordon 18:03 Dressings: non-adherent dressing x 1 neck. eh3 Administered Medications: 16:15 Drug: NS 0.9% IV 500 ml IV at bolus once Route: IV; Rate: bolus; Site: right forearm; eh3 18:00 Follow up: IV Status: Completed infusion; IV Intake: 300ml eh3 16:15 Drug: NS 0.9% IV 1000 ml IV at 125 ml/hr continuous Route: IV; Rate: 125 ml/hr; Site: eh3 right forearm; 18:00 Follow up: IV Status: Completed infusion; IV Intake: 200ml eh3 17:30 Drug: Lidocaine Infiltration (1 %) 15 ml 20 ml Infiltration once; to bedside {Note: eh3 administered by Papa Leo MD.} Volume: 20 ml; Route: Infiltration; 17:55 Drug: Doxycycline PO 200 mg PO once Route: PO; eh3 18:00 Follow up: Response: Medication administered at discharge. eh3 17:55 Drug: Trimethoprim-Sulfamethoxazole PO (160 mg-800 mg (DS) 1 tablet PO once Route: PO; eh3 18:00 Follow up: Response: Medication administered at discharge. eh3 17:55 Drug: [place] PO 10 mg-325 mg 1 tabs PO once Route: PO; eh3 18:00 Follow up: Response: Medication administered at discharge. eh3 Intake: 18:00 IV: 200ml; Total: 200ml. eh3 18:00 IV: 300ml; Total: 500ml. eh3 Outcome: 17:49 Discharge ordered by . gordon 18:39 Patient left the ED. eh3 Signatures: Dispatcher [employer] EDPapa Conti MD MD cha Rivera Patricia, [facility] Reg mr Sha Vick, IAN RN 1 Gena Coreas RN RN eh3
[2023-07-12] MEDS ORDERED: DOXYCYCLINE 100 MG CAP PO ONE (18:06)
[2023-07-12] MEDS ORDERED: HYDROCODONE/APAP 10/325 TAB ONE (18:06)
[2023-07-12] MEDS ORDERED: SMZ./TMP. 800/160 MG TABLET ONE (18:07)
[2023-07-12 18:45] VITALS: TEMP 97.7
[2023-07-12 18:47] VITALS: BP 151/101; O2SAT 97
--- NOTE | 2023-07-13 15:45 | EKG ---
Test Date: 2023-07-12 Test Time: 17:10:15 Web Programmer: NARCISA MEASUREMENT RESULTS: Intervals: Rate: 97 OR: 166 QRSD: 74 QT: 330 QTc: 419 [place]: P: 38 OR: 166 QRS: 24 T: 55 INTERPRETIVE STATEMENTS: Normal sinus rhythm Septal infarct, age undetermined Abnormal ECG Compared to ECG 12/18/2017 09:30:01 Myocardial infarct finding now present Electronically Signed On 07-13-23 15:42:35 CDT by Kevan Burrell
== END 2023-07-12 18:39 | disposition home or self-care (01) ==
LOC: ER 13:21
PROC: 0J940ZZ Drainage of Right Neck Subcutaneous Tissue and Fascia, Open Approach (ICD-10-PCS; principal; 2023-07-12)
DX: L02.11 Cutaneous abscess of neck (principal); E66.9 Obesity, unspecified; Z68.43 Body mass index [BMI] 50.0-59.9, adult; E11.65 Type 2 diabetes mellitus with hyperglycemia
CPT/HCPCS: 96361; 93005; 85025; 80048; 36415; 83735; 85610; 80076; 84484; 83880; 71046; 96360; 99284; 10060; J2001; J7040; J7030